=== PATIENT | male | born 1945 | race Caucasian/White ===

== ENCOUNTER 2022-10-31 18:52 | Emergency (ER) | payer BC, SELFPAY ==
[2022-10-31 18:58] VITALS: BP 155/89; PULSE 87; RESP 16; TEMP 36.7; O2SAT 95; BMI 22.2
--- NOTE | 2022-10-31 19:10 | PC.NURSE ---
Macerated laceration tip of left thumb. PMS intact. no bleeding noted
[2022-10-31] MEDS: ADACEL DIPH,PERTUSS(ACELL),TET VAC/PF 0.5 ML ADULT SYRINGE IM (19:15)
--- NOTE | 2022-10-31 19:34 | XR_ITS ---
The [address] [address] Patient Name: LEIGH ANN POLO MRN: [id number] date: 1945 Sex: M Assigned Patient Location: ER Current Patient Location: Accession/Order Number: [id number] Exam Date: 10/31/2022 19:30 Report Date: 10/31/2022 20:16 At the request of: ARTI CARUSO Procedure: XR hand LT min 3V EXAM: XR hand LT min 3V HISTORY: , Thumb with electric saw COMPARISON: None. TECHNIQUE: 3 views FINDINGS: IMPRESSION: Approximately 2.7 mm radiodensity within the volar aspect of the thenar eminence. Additional volar radiodensity overlies the first metacarpal base. No visualized fracture, dislocation, subluxation or osseous lesion. Degenerative changes of the first carpometacarpal, first IP, triscaphe, first, second and third metacarpophalangeal and distal radioulnar joints. Electronically authenticated by: COBY DYKES Date: 10/31/2022 20:16
--- NOTE | 2022-10-31 19:35 | ED.SKABFB1 ---
HPI - Skin/Abscess/Foreign Bdy General Chief complaint: Skin/Abscess/Foreign Body Stated complaint: LT THUMB CUT Time Seen by Provider: 10/31/22 19:31 Source: patient Mode of arrival: walk-in Limitations: no limitations History of Present Illness HPI narrative: using a table saw and it jumped up lacerating his left thumb. did not involve the nail. Denies thumb numbness or weakness. Denies other injury MD complaint: Reports laceration Related Data Home Medications Medication Instructions Recorded Confirmed amlodipine 5 mg tablet 5 mg PO DAILY 10/31/22 10/31/22 cyanocobalamin (vitamin B-12) 1,000 mcg PO DAILY 10/31/22 10/31/22 1,000 mcg tablet Allergies Allergy/AdvReac Type Severity Reaction Status Date / Time No Known Drug Allergies Allergy Verified 10/31/22 18:58 Review of Systems ROS Status of ROS 10 or more systems reviewed and unremarkable except as noted in history and below [facility] Medical History (Updated 10/31/22 @ 21:59 by Misha Gray MD) Exam Constitutional Vital Signs - 24 hr 10/31/22 18:58 10/31/22 21:37 Temperature 98.1 F Pulse Rate 84 Pulse Rate [Monitor] 87 Respiratory Rate 16 18 Blood Pressure 141/106 H Blood Pressure [Right Arm] 155/89 H Pulse Oximetry 95 93 L Oxygen Delivery Method Room Air Common normals: no apparent distress, average body habitus, oriented x3, no limitations, healthy appearing and alert HENMT Common normals: normocephalic and head/scalp atraumatic Eye Common normals: EOMs intact bilaterally and conjunctivae normal Respiratory Common normals: normal respiratory effort, no retractions and no use of accessory muscles Cardio Common normals: regular rate, regular rhythm, S1 normal heart sound and S2 normal heart sound Extremity Other: fat pad left thumb with complicated chewed up appearing lac into SQ space. Nail and nail bed intact. Sensation of finger intact. Pale color of tip of finger. no obvious FB seen. Neuro Common normals: oriented x3, CN's II-XII intact bilaterally, moves all extremities, no focal motor deficits and no sensory deficits noted Psych Appearance: grossly normal Course Vital Signs Vital signs: Vital Signs Temperature 98.1 F 10/31/22 18:58 Pulse Rate 87 10/31/22 18:58 Respiratory Rate 16 10/31/22 18:58 Blood Pressure 155/89 H 10/31/22 18:58 Pulse Oximetry 95 10/31/22 18:58 Oxygen Delivery Method Room Air 10/31/22 18:58 Temperature 98.1 F 10/31/22 18:58 Pulse Rate 84 10/31/22 21:37 Respiratory Rate 18 10/31/22 21:37 Blood Pressure 141/106 H 10/31/22 21:37 Pulse Oximetry 93 L 10/31/22 21:37 Oxygen Delivery Method Room Air 10/31/22 18:58 MDM - Skin/Abscess/Foreign Bdy MDM Narrative Medical decision making narrative: patient presented with complicated lac left thumb. Cut into many lacs with table saw. Nail bed not involved. Lac pieced together as best as possible. xray with FB at the thumb but not at the site of the laceration. Patient informed of the above. given dose of augmentin and discharged home to follow up with orthopedics Discharge Plan Discharge Chief Complaint: Skin/Abscess/Foreign Body Clinical Impression: Laceration of right thumb Patient Disposition: Home, Self-Care Prescriptions / Home Meds: No Action amlodipine 5 mg tablet 5 mg PO DAILY cyanocobalamin (vitamin B-12) 1,000 mcg tablet 1,000 mcg PO DAILY Instructions: Finger Laceration (ED) Additional Instructions: follow up with orthopedics Dr Owens next week Stand Alone Forms: Portal Instructions Referrals: Aroldo Ace DO [Primary Care Provider] - 1 week Procedures ED Procedure Instructions Procedures Procedures: left thumb lac repair. complicated multiple cuts fat pad of left thumb. 1% lido as local. site cleaned with betadine and rinsed with saline. No obvious FB found. lac tacked together with # 8 4.0 nylon stitches. lac size in total probably 2.5cm post repair xray obtained due to FB that was present. Patient also given first dose of Augmentin
--- NOTE | 2022-10-31 21:10 | XR_ITS ---
The [address] [address] Patient Name: LEIGH ANN POLO MRN: [id number] date: 1945 Sex: M Assigned Patient Location: ER Current Patient Location: ER Accession/Order Number: [id number] Exam Date: 10/31/2022 21:16 Report Date: 10/31/2022 21:46 At the request of: ARTI CARUSO Procedure: XR hand LT 2V EXAM: XR hand LT 2V 2 views were performed. In allowing for difference in technique there is no change with the prior study. Electronically authenticated by: COBY DYKES Date: 10/31/2022 21:46
[2022-10-31 21:37] VITALS: BP 141/106; PULSE 84; RESP 18; O2SAT 93
[2022-10-31 22:07] VITALS: BP 141/106; PULSE 84; RESP 18; O2SAT 96
== END 2022-10-31 22:09 | disposition home or self-care (01) ==
PROVIDERS: Emergency Provider Internal Medicine; PCP Internal Medicine
DX: S61.012A Laceration without foreign body of left thumb without damage to nail, initial encounter (principal); Z23 Encounter for immunization; W31.2XXA Contact with powered woodworking and forming machines, initial encounter; Z79.899 Other long term (current) drug therapy
CPT/HCPCS: 12001; 73120; 73130; 90471; 90715; 99284

== ENCOUNTER 2023-01-06 08:05 | Outpatient (OUT) | payer BC, SELFPAY ==
--- NOTE | 2023-01-06 08:36 | CT_ITS ---
[address] [address] Patient Name: LEIGH ANN POLO MRN: [id number] date: 1945 Sex: M Assigned Patient Location: CT Current Patient Location: CT Accession/Order Number: [id number] Exam Date: 01/06/2023 08:41 Report Date: 01/06/2023 10:00 At the request of: FRANKLYN BARRY Procedure: CT lung screening low-dose EXAMINATION: CT lung screening low-dose HISTORY: Nicotine Dependence F17.210 COMPARISON: 05/10/2020 TECHNIQUE: Axial, Coronal, and Sagittal images were created without the administration of IV contrast material. Dose reduction techniques were achieved by using automated exposure control and/or adjustment of mA and/or kV according to patient size and/or use of iterative reconstruction technique. FINDINGS: LUNGS: Mild basilar bronchiectasis. Moderate stable centrilobular emphysema with an upper lobe predominance. Scattered stable solid calcified and noncalcified parenchymal and subpleural nodules the largest nodule subpleural in the right lower lobe axial image 98 measuring 7.9 x 5.0 mm, grossly stable in size accounting for differences in slice selection. No new significant pulmonary nodule or mass. PLEURA: No mass, effusion, or pneumothorax. VASCULATURE: No abnormality. LUIS MIGUEL: No mass or pathologic adenopathy. MEDIASTINUM: No mass or pathologic adenopathy. CARDIAC: No enlargement or pericardial effusion. Minimal atherosclerosis AORTA: No aortic aneurysm. Mild atherosclerosis CHEST WALL: No mass or axillary adenopathy BONES: No bone lesion or fracture. LIMITED ABDOMEN: Low-density in the left hepatic lobe, possibly a cyst OTHER: Negative. CT/CT lung screening low-dose IMPRESSION: LUNG SCREENING: Lung-RADS Category 2- Benign Appearance or Behavior. Nodules with a very low likelihood of becoming a clinically active cancer due to size or lack of growth. 2. Continue annual screening with LDCT in 12 months. Electronically authenticated by: COBY LUNDBERG Date: 01/06/2023 10:00
[2023-01-06 08:44] LABS: Basophils Absolute Auto 0.1 10^3/uL (0.0-0.1); Basophils Percent Auto 1.3 % (0.2-2.0); Eosinophils Absolute Auto 0.4 10^3/uL (0.0-0.7); Eosinophils Percent Auto 5.8 % (0.9-7.0); Hematocrit 39.9 % (42.0-54.0); Hemoglobin 13.4 g/dL (14.0-18.0); Immature Granulocytes Abs Auto 0.06 10^3/uL (0.00-0.03); Immature Granulocytes Pct Auto 0.9 % (0.0-0.5); Lymphocytes Absolute Auto 1.2 10^3/uL (1.2-3.8); Mean Corpuscular HGB Conc 33.6 g/dL (29.9-35.2); Mean Corpuscular Hemoglobin 31.5 pg (25.9-34.0); Mean Corpuscular Volume 93.9 fL (80.0-94.0); Mean Platelet Volume 8.6 fL (9.5-13.5); Monocytes Absolute Auto 0.8 10^3/uL (0.3-0.8); Neutrophils Absolute Auto 3.8 10^3/uL (1.4-6.5); Platelet Count 337 10^3/uL (150-450); Red Blood Count 4.25 10^6/uL (4.70-6.10); Red Cell Distribution Width 13.9 % (11.0-15.0); White Blood Count 6.4 10^3/uL (4.0-11.0)
[2023-01-06 09:50] LABS: Alanine Aminotransferase 19 U/L (16-63); Albumin Globulin Ratio 0.8; Albumin Level 3.2 g/dL (3.4-5.0); Alkaline Phosphatase 91 U/L (46-116); Anion Gap 12.4; Aspartate Amino Transferase 16 U/L (15-37); BUN Creatinine Ratio 10.3; Bilirubin Total 0.6 mg/dL (0.2-1.0); Calcium 8.7 mg/dL (8.5-10.1); Carbon Dioxide 24.5 mmol/L (21.0-32.0); Chloride 102 mmol/L (98-107); Estimated GFR (African America 49 (>=60); Estimated GFR (Non-African Ame 41 (>=60); Glucose 91 mg/dL (74-106); Potassium 3.9 mmol/L (3.5-5.1); Sodium 135 mmol/L (136-145); Total Protein 7.2 g/dL (6.4-8.2)
[2023-01-06 10:51] LABS: Prostate Specific Antigen Scrn 1.98 ng/mL (<=4.00)
== END 2023-01-06 08:06 | disposition home or self-care (01) ==
LOC: CT 08:06
PROVIDERS: PCP Internal Medicine; Visit Provider Internal Medicine
DX: Z00.00 Encounter for general adult medical examination without abnormal findings (principal); F17.210 Nicotine dependence, cigarettes, uncomplicated; Z12.5 Encounter for screening for malignant neoplasm of prostate
CPT/HCPCS: 36415; 71271; 80053; 82607; 82728; 82746; 85025; G0103

== ENCOUNTER 2023-01-14 07:51 | Outpatient (OUT) | payer BC, SELFPAY ==
--- NOTE | 2023-01-14 07:55 | US_ITS ---
The [address] [address] Patient Name: LEIGH ANN POLO MRN: [id number] date: 1945 Sex: M Assigned Patient Location: US Current Patient Location: US Accession/Order Number: [id number] Exam Date: 01/14/2023 08:00 Report Date: 01/14/2023 08:58 At the request of: FRANKLYN BARRY Procedure: US renal bladder EXAMINATION: US renal bladder HISTORY: Stage 3b Chronic Kidney Disease N18.32 COMPARISON: No relevant comparison available. TECHNIQUE: Ultrasound examination was performed of the kidneys and urinary bladder. FINDINGS: RIGHT KIDNEY: No evidence of pelvocaliectasis, mass, or calculi. Normal renal cortical parenchymal echogenicity. Incidental small benign-appearing cyst. Color Doppler demonstrates blood flow within the kidney. Kidney: 9.5 x 5.6 x 5.3 cm LEFT KIDNEY: Slightly limited evaluation of left kidney due to bowel gas and body habitus. Mild cortical thinning. No evidence of pelvocaliectasis, mass, or calculi. Normal renal cortical parenchymal echogenicity. Color Doppler demonstrates blood flow within the kidney. Kidney: 8.5 x 4.4 x 5.6 cm BLADDER: No visible wall thickening, mass, or calculi. Post void residual: 83 mL URETERAL JETS: Visualized bilaterally. OTHER: Marked dilation of the distal abdominal aorta 5.3 x 4.9 cm in diameter by 7.87 m in length. Turbulent blood flow through this region. US/US renal bladder IMPRESSION: 1. 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 2. No acute or suspicious findings kidneys. Minimal cortical atrophy, likely age related. 3. Moderate amount of fluid remains within urinary bladder following voiding, [address] Barry is being notified of the findings at this time. Electronically authenticated by: HEDY POLO Date: 01/14/2023 08:58
== END 2023-01-14 07:52 | disposition home or self-care (01) ==
LOC: US 07:51
PROVIDERS: PCP Internal Medicine; Visit Provider Internal Medicine
DX: N18.32 Chronic kidney disease, stage 3b (principal)
CPT/HCPCS: 76770

== ENCOUNTER 2024-02-07 10:01 | Outpatient (OUT) | payer BC, SELFPAY ==
[2024-02-07 10:16] LABS: Basophils Absolute Auto 0.1 10^3/uL (0.0-0.1); Basophils Percent Auto 1.3 % (0.2-2.0); Eosinophils Absolute Auto 0.4 10^3/uL (0.0-0.7); Eosinophils Percent Auto 4.7 % (0.9-7.0); Hematocrit 41.4 % (42.0-54.0); Immature Granulocytes Abs Auto 0.07 10^3/uL (0.00-0.03); Immature Granulocytes Pct Auto 0.9 % (0.0-0.5); Lymphocytes Absolute Auto 1.4 10^3/uL (1.2-3.8); Lymphocytes Percent Auto 18.8 % (20.5-60.0); Mean Corpuscular HGB Conc 33.8 g/dL (29.9-35.2); Mean Corpuscular Hemoglobin 32.3 pg (25.9-34.0); Mean Corpuscular Volume 95.4 fL (80.0-94.0); Mean Platelet Volume 8.8 fL (9.5-13.5); Monocytes Absolute Auto 0.9 10^3/uL (0.3-0.8); Monocytes Percent Auto 11.3 % (1.7-12.0); Neutrophils Absolute Auto 4.7 10^3/uL (1.4-6.5); Platelet Count 382 10^3/uL (150-450); Red Blood Count 4.34 10^6/uL (4.70-6.10); Red Cell Distribution Width 12.7 % (11.0-15.0); White Blood Count 7.5 10^3/uL (4.0-11.0)
--- NOTE | 2024-02-07 10:30 | CT_ITS ---
[address] [address] Patient Name: LEIGH ANN POLO MRN: [id number] date: 1945 Sex: M Assigned Patient Location: LAB Current Patient Location: LAB Accession/Order Number: [id number] Exam Date: 02/07/2024 10:20 Report Date: 02/07/2024 13:09 At the request of: FRANKLYN BARRY Procedure: CT lung screening low-dose EXAMINATION: CT lung screening low-dose HISTORY: Nicotine Dependence COMPARISON: 01/06/2023 TECHNIQUE: Axial, Coronal, and Sagittal images were created without the administration of IV contrast material. Dose reduction techniques were achieved by using automated exposure control and/or adjustment of mA and/or kV according to patient size and/or use of iterative reconstruction technique. FINDINGS: LUNGS: Moderate centrilobular emphysema with an upper lobe predominance. Stable scattered pulmonary nodules the most suspicious nodule is identified in the left upper lobe along the major fissure measuring 9.7 x 9.1 mm, axial image 62 PLEURA: No mass, effusion, or pneumothorax. VASCULATURE: No abnormality. LUIS MIGUEL: No mass or pathologic adenopathy. MEDIASTINUM: No mass or pathologic adenopathy. CARDIAC: No enlargement or pericardial effusion CORONARY ARTERIES: Coronary calcifications are mild. AORTA: No aortic aneurysm. Moderate calcific atherosclerosis. Aortic endograft minimally visualized CHEST WALL: No mass or axillary adenopathy BONES: No bone lesion or fracture. LIMITED ABDOMEN: No suspicious findings. Limited images of the upper abdomen. OTHER: Negative. CT/CT lung screening low-dose IMPRESSION: LUNG SCREENING: Lung-RADS Category 2- Benign Appearance or Behavior. Nodules with a very low likelihood of becoming a clinically active cancer due to size or lack of growth. 2. Continue annual screening with LDCT in 12 months. Electronically authenticated by: COBY LUNDBERG Date: 02/07/2024 13:09
[2024-02-07 11:32] LABS: Alanine Aminotransferase 20 U/L (16-63); Albumin Globulin Ratio 0.9; Albumin Level 3.4 g/dL (3.4-5.0); Alkaline Phosphatase 134 U/L (46-116); Anion Gap 16.4; Aspartate Amino Transferase 20 U/L (15-37); BUN Creatinine Ratio 12.4; Calcium 8.8 mg/dL (8.5-10.1); Carbon Dioxide 22.7 mmol/L (21.0-32.0); Chloride 97 mmol/L (98-107); Chol HDL Ratio 2.6; Cholesterol 151 mg/dL (<=200); Estimated GFR (African America 41 (>=60 mL/min/1.73m^2); Estimated GFR (Non-African Ame 34 (>=60 mL/min/1.73m^2); Glucose 95 mg/dL (74-106); HDL Cholesterol 59 mg/dL (40-60); LDL Cholesterol Calculated 72.6 mg/dL; Potassium 4.1 mmol/L (3.5-5.1); Sodium 132 mmol/L (136-145); Total Protein 7.4 g/dL (6.4-8.2); Triglycerides 97 mg/dL (<=150); VLDL CHOLESTEROL 19.4 mg/dL
[2024-02-07 12:03] LABS: Percent Iron Saturation 54.3 %
[2024-02-07 12:09] LABS: Estimated Average Glucose 111 mg/dL; Glycohemoglobin A1C 5.5 % (4.5-6.2)
[2024-02-07 12:30] LABS: Prostate Specific Antigen Scrn 2.41 ng/mL (<=4.00)
[2024-02-08 09:13] LABS: Vitamin B12 463 pg/mL (232-1245)
== END 2024-02-07 10:02 | disposition home or self-care (01) ==
LOC: LAB 10:01
PROVIDERS: PCP Internal Medicine; Visit Provider Internal Medicine
DX: R73.9 Hyperglycemia, unspecified (principal); D64.9 Anemia, unspecified; R53.83 Other fatigue; I10 Essential (primary) hypertension; E78.00 Pure hypercholesterolemia, unspecified; Z12.5 Encounter for screening for malignant neoplasm of prostate; F17.210 Nicotine dependence, cigarettes, uncomplicated
CPT/HCPCS: 36415; 71271; 80053; 80061; 82607; 82728; 82746; 83036; 83540; 83550; 85025; G0103

== ENCOUNTER 2024-03-16 14:44 | Outpatient (OUT) | payer MEDICARE, SELFPAY ==
[2024-03-16 15:20] LABS: Anion Gap 12.8; BUN Creatinine Ratio 10.8; Calcium 8.9 mg/dL (8.5-10.1); Carbon Dioxide 28.3 mmol/L (21.0-32.0); Chloride 103 mmol/L (98-107); Estimated GFR (African America 39 (>=60 mL/min/1.73m^2); Estimated GFR (Non-African Ame 32 (>=60 mL/min/1.73m^2); Glucose 101 mg/dL (74-106); Potassium 4.1 mmol/L (3.5-5.1); Sodium 140 mmol/L (136-145)
[2024-03-16 15:40] LABS: Bilirubin Urine NEGATIVE (NEGATIVE); Blood Urine SMALL (NEGATIVE); Clarity Urine CLEAR (CLEAR); Color Urine LT. YELLOW (YELLOW); Glucose Urine UA NEGATIVE (NEGATIVE); Ketones Urine NEGATIVE (NEGATIVE); Leukocyte Esterase Urine NEGATIVE (NEGATIVE); Nitrite Urine NEGATIVE (NEGATIVE); Protein Urine NEGATIVE (NEG/TRACE); Urobilinogen Urine 0.2 EU/dL (0.2-1.0); pH Urine 6.5 (5.0-9.0)
[2024-03-16 15:43] LABS: Creatinine Urine Random 37.11 mg/dL (20.00-300.00); Protein Creatinine Ratio Urine 0.27; Total Protein Urine Random 10.1 mg/dL (<=11.9)
[2024-03-16 15:49] LABS: Bacteria Urine NONE SEEN #/HPF (NONE SEEN); Cast Seen? NONE SEEN #/LPF (NONE SEEN); Crystals Seen? None Seen #/HPF (None Seen); Mucus Urine NONE SEEN (NONE SEEN); RBC Urine 0-2 #/HPF (0-2); Squamous Epithelial Cell Urine RARE #/LPF (NONE/RARE); WBC Urine NONE SEEN #/HPF (NONE SEEN)
== END 2024-03-16 14:45 | disposition home or self-care (01) ==
PROVIDERS: PCP Internal Medicine; Visit Provider Internal Medicine
DX: N18.9 Chronic kidney disease, unspecified (principal)
CPT/HCPCS: 36415; 80048; 81001; 82570; 84156

== ENCOUNTER 2025-02-15 09:39 | Outpatient (OUT) | payer MEDICARE, SELFPAY ==
--- OUTSIDE RECORDS SUMMARY | 2025-02-15 09:45 | XMS_ITS | CCD ---
Author Organization [facility] CliniSysd Care Team Providers Care Billet Assembler Name Role Phone AROLDO ACE Primary Care Unavailable BALL, AROLDO Admitting Unavailable JHONNY, AROLDO Attending Unavailable JHONNY, AROLDO Consulting Unavailable COBY LUNDBERG V Consulting Unavailable BALL, AROLDO Consulting Unavailable BALL, AROLDO Primary Care Unavailable BALL, AROLDO Admitting Unavailable JHONNY, AROLDO Attending Unavailable DO Rakesh Newby Emergency Provider DO Aroldo Ace Primary Care Provider MD Justin Garcia Admit Provider MD Justin Garcia Attending Provider DO Janeth Reyes Other Provider MD Linh Hoyt Attending Provider Aroldo Ace Unavailable Coby Cordon Unavailable MD Coby Cordon Attending Provider GHADA Ponce Attending Provider Johan Dawn Unavailable DO Aroldo Ace Primary Care Provider [phone] MD Coby Cordon Attending Provider MD Johan Dawn Attending Provider Kimmy Hines Unavailable DO Aroldo Ace Primary Care Provider Johan RAMACHANDRAN Attending Unavailable Samanta Matute Attending Unavailable DO Aroldo Ace Primary Care Provider MD Johan Dawn Attending Provider MD Johan Dawn Admit Provider CLAUDETTE Hines Attending Provider DO Aroldo Ace Primary Care Provider MurDO Aroldo tony Attending Provider Aroldo Ace MD Primary Care Provider Aroldo Ace DO Primary Care Provider William URRUTIA, Radha Christian Attending Provider Johan Dawn MD Attending Provider Johan Dawn MD Referring Provider Modek, Aroldo Admitting Unavailable Murcek, Aroldo Attending Unavailable Ball, Aroldo Primary Care Unavailable Murcek, Aroldo Admitting Unavailable Murcek, Aroldo Attending Unavailable Ball, Aroldo Primary Care Unavailable Hill, Radha Christian Attending Unavailable Ball, Aroldo Primary Care Unavailable William, Radha Christian Admitting Unavailable Buehrer, Johan Admitting Unavailable Buehrer, Johan Attending Unavailable Buehrer, Johan Referring Unavailable Ball, Aroldo Primary Care Unavailable Hill, Radha Christian Attending Unavailable Ball, Aroldo Primary Care Unavailable William, Radha Christian Admitting Unavailable Murcek, Aroldo Admitting Unavailable Murcek, Aroldo Attending Unavailable Jhonny, Aroldo Primary Care Unavailable Jhonny GONZALEZ, Aroldo Oconnell Primary Care Provider PETVERO, USHA Gooden Attending Unavailable LOWE, SIMRAN Attending Unavailable PETITTI, USHA Gooden Attending Unavailable PETITTI, USHA Gooden Attending Unavailable MURCEK, AROLDO Morelos Attending Unavailable MURCEK, AROLDO W Attending Unavailable PETITTI, USHA Gooden Attending Unavailable WILLIAM, RADHA Attending Unavailable MURCEK, AROLDO W Attending Unavailable Aroldo Ace DO Primary Care Provider [phone] Aroldo Ace DO Attending Provider [phone] Allergies Allergy Classification Reported Allergen(s) Allergy Type Date of Onset Reaction(s) Facility (1 source) No Known Medication Allergies; Translations: [No Known Medication Allergies] Propensity to adverse reactions (disorder) [facility] Repository Medications Current Medications Medication Drug Class(es) Dates Sig (Normalized) Sig (Original) amLODIPine 5 mg oral tablet (20 sources) Dihydropyridine Calcium Channel Allyn Start: 05-09-2024 take 1 tablet by mouth once daily Amlodipine 5 mg tablet Active 0 .ROUTE .COMPLEX May 09, 2024 2:00pm TAKE 1 TABLET BY MOUTH EVERY DAY FOR 30 DAYS Complies with drug therapy Start: 09-14-2022 End: 05-09-2024 take 1 tablet by mouth once daily in the morning Amlodipine 5 mg tablet Discontinued 5 MG PO Every morning March 04, 2023 11:48am May 09, 2024 2:00pm aspirin 81 mg oral tablet (20 sources) Platelet Aggregation Inhibitor, Nonsteroidal Anti-inflammatory Drug Start: 03-04-2023 take 1 capsule by mouth once daily Aspirin 81 mg Capsule Active 81 MG PO Daily March 04, 2023 12:00am Complies with drug therapy take 1 tablet by mouth once zhao y aspirin (ASPIR) 81 MG EC tablet Take 81 mg by mouth Daily Active atorvastatin 40 mg oral tablet (20 sources) HMG-CoA Reductase Inhibitor Start: 03-15-2024 take 1 tablet by mouth once daily Atorvastatin 40 mg tablet Active 0 .ROUTE .COMPLEX March 15, 2024 9:37am TAKE 1 TABLET BY MOUTH EVERY DAY FOR 30 DAYS Complies with drug therapy Start: 01-14-2023 End: 03-15-2024 take 1 tablet by mouth once daily in the morning Atorvastatin 40 mg Tablet Discontinued 40 MG PO Every morning March 04, 2023 12:00am March 15, 2024 9:37am take 1 tablet by rodo th once daily atorvastatin (Lipitor) 10 MG tablet Take 10 mg by mouth Daily Active ciclopirox 7.7 mg/ml topical cream (8 sources) Start: 06-19-2024 ciclopirox (Lo prox) 0.77 % cream Indications: Other seborrheic dermatitis Apply thin layer to face once a day, 30 day supply 30 g 06/19/2024 Active fluorouracil 50 mg/ml topical cream (2 sources) Nucleoside Metabolic Inhibitor Start: 12-20-2024 fluorouracil (Efudex ) 5 % cream Indications: Actinic keratosis Apply to directed areas on the neck, upper lip, behind ears, cheeks and forearms twice a day x 14 days. Dispense 30 day supply but only use for 14 days. 40 g 12/20/2024 Active Start: 12-20-2024 fluorouracil ( Efudex) 5 % cream Indications: Actinic keratosis Apply to directed areas on the neck, upper lip, behind ears, cheeks and forearms twice a day x 14 days. Dispense 30 day supply but only use for 14 days. 40 g 12/20/2024 Active mupirocin 0.02 mg/mg topical ointment (9 sources) RNA Synthetase Inhibitor Antibacterial Start: 11-11-2022 Mupirocin 2 % 1 application Externally Twice a day for 5 days Oct, Active nystatin 100 unt/mg topical ointment (20 sources) Polyene Antifungal Start: 06-28-2023 nystatin (Mycostatin) ointment Indications: Rash and other nonspecific skin eruption Apply to affected areas, once daily when flared, 30 day supply 15 g 11 06/28/2023 Active prevergen (7 sources) Start: 12-06-2023 take 1 tablet by mouth once daily prevergen Active 1 TAB PO Daily December 06, 2023 12:00am Complies with drug therapy Start: 12-06-2023 take 1 tablet by rodo th once daily prevergen Active 1 TAB PO Daily December 05, 2023 11:00pm Start: 12-06-2023 take 1 tablet by rodo th once daily prevergen Active 1 TAB PO Daily December 06, 2023 12:00am vitamin b12 1 mg extended release oral tablet (18 sources) Vitamin B12 Start: 10-12-2022 take 1 tablet by mouth every twenty-four hours Vitamin B12 1000 MCG 1 tablet Orally Once a day Oct, Active Start: 09-14-2022 End: 12-27-2023 take 1 tablet by mouth once daily in the morning Cyanocobalamin (Vitamin B-12) 1,000 mcg Tablet Discontinued 1000 MCG PO Every morning September 14, 2022 12:00am December 27, 2023 10:31am Vitamin B12 1000 MCG (13 sources) Start: 10-12-2022 take 1 tablet by rodo th once daily Vitamin B12 1000 MCG 1 tablet Orally Once a day Oct, Active Start: 10-12-2022 take 1 tablet by mouth once da sha Vitamin B12 1000 MCG 1 tablet Orally Once a day for 30 days Oct, Active Completed/Discontinued Medications Medication Drug Class(es) Dates Sig (Normalized) Sig (Original) amoxicillin 875 mg / clavulanate 125 mg oral tablet (10 sources) Penicillin-class Antibacterial Start: 11-11-2022 take 1 tablet by mouth every twelve hours Amoxicillin-Pot Clavulanate 875-125 MG 1 tablet Orally every 12 hrs for 7 days Oct, Not-Taking folic acid 1 mg oral tablet (20 sources) Start: 01-09-2023 End: 09-18-2024 take 1 tablet by mouth once daily Folic Acid 1 mg Tablet Discontinued 1 MG PO Daily March 04, 2023 12:00am September 07, 2023 6:15pm Folic Acid 5 MG capsule Take by mouth Active hydroCHLOROthiazide 12.5 mg oral capsule (16 sources) Thiazide Diuretic Start: 09-14-2022 End: 03-04-2023 take 1 capsule by mouth once daily Hydrochlorothiazide 12.5 mg capsule Discontinued 12.5 MG PO Daily September 14, 2022 12:00am March 04, 2023 11:48am Suprep Bowel Prep Kit 17.5-3.13-1.6 GM/180ML (10 sources) Start: 12-29-2018 Suprep Bowel Prep Kit 17.5-3.13-1.6 GM/180ML 177 ML DIRECTED AT 4 PM AND ONE AT 11 PM DAY PRIOR Orally Twice a day for 1 day(s) Dec, Not-Taking Problems Active Problems Problem Classification Problem Date Documented Date Episodic/Chronic Alcohol-related disorders (20 sources) Alcohol dependence; Translations: [Alcohol dependence, uncomplicated] 05-23-2024 Chronic Aortic; peripheral; and visceral artery aneurysms (20 sources) Aneurysm of infrarenal abdominal aorta ; Translations: [Infrarenal abdominal aortic aneurysm (AAA) without rupture] Onset: 01-05-2024 12-25-2023 Chronic Comment on above: s/p EVAR 03/2023 Cancer of head and neck (4 sources) Malignant tumor of lip; 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, unspecified] 02-16-2024 Chronic Chronic kidney disease (20 sources) Chronic kidney disease stage 3A ; Translations: [Chronic kidney disease, stage 3a] 02-07-2024 Chronic Deficiency and other anemia (18 sources) Pernicious anemia; Translations: [Vitamin B12 deficiency anemia due to intrinsic factor deficiency] 05-23-2024 Episodic Deficiency and other anemia (2 sources) Vitamin B12 deficiency anemia due to intrinsic factor deficiency Episodic Deficiency and other anemia (4 sources) Anemia; Translations: [Anemia, unspecified] 12-27-2023 Episodic Delirium, dementia, and amnestic and other cognitive disorders (20 sources) Delirium; Translations: [Delirium due to known physiological condition] Chronic Diabetes mellitus without complication (6 sources) Hyperglycemia; Translations: [Hyperglycemia, unspecified] 12-27-2023 Episodic Disorders of lipid metabolism (20 sources) Hypercholesterolemia; Translations: [Pure hypercholesterolemia, unspecified] Onset: 01-05-2024 Resolved: 01-05-2024 Chronic Essential hypertension (20 sources) Hypertensive disorder; Translations: [Essential (primary) hypertension] Onset: 12-02-2023 Resolved: 12-02-2023 09-12-2022 Chronic Hyperplasia of prostate (19 sources) Lower urinary tract symptoms due to benign prostatic hypertrophy; Translations: [Benign prostatic hyperplasia with lower urinary tract symptoms] Chronic Hypertension with complications and secondary hypertension (20 sources) Hypertensive encephalopathy; Translations: [Hypertensive encephalopathy] Onset: 09-12-2023 09-12-2023 Chronic Nervous system congenital anomalies (20 sources) Congenital cerebral ventriculomegaly; Translations: [Other specified congenital malformations of brain] Onset: 09-12-2023 09-12-2023 Chronic Nutritional deficiencies (1 source) Deficiency of other specified B group vitamins Episodic Open wounds of extremities (2 sources) Laceration without foreign body of left thumb without damage to nail, subsequent encounter Episodic Other inflammatory condition of skin (4 sources) Seborrheic dermatitis; Translations: [Other seborrheic dermatitis] 06-19-2024 Episodic Other lower respiratory disease (18 sources) Solitary nodule of lung; Translations: [Solitary pulmonary nodule] Episodic Other lower respiratory disease (2 sources) Solitary pulmonary nodule; Translations: [Solitary pulmonary nodule] Episodic Other lower respiratory disease (5 sources) Nodule of lung; Translations: [Solitary pulmonary nodule] 02-07-2024 Episodic Comment on above: CT: 9.7mm JAGRUTI nodule - 02/2024 Other nervous system disorders (2 sources) Hyperreflexia; Translations: [Abnormal reflex] 03-27-2024 Episodic Other screening for suspected conditions (not mental disorders or infectious disease) (20 sources) Encounter for screening for malignant neoplasm of prostate; Translations: [CT of head abnormal] Onset: 06-12-2020 Resolved: 01-05-2024 09-12-2022 Episodic Comment on above: PSA: 1.98 - 01/2023, 2.41 - 02/2024, Other skin disorders (8 sources) Actinic keratosis; Translations: [Actinic keratosis] 03-01-2024 Episodic Other skin disorders (6 sources) Seborrheic keratosis; Translations: [Other seborrheic keratosis] 12-28-2023 Episodic Other skin disorders (6 sources) Lentiginosis; Translations: [Other melanin hyperpigmentation] 12-28-2023 Episodic Residual codes; unclassified (20 sources) Hypersomnia; Translations: [Hypersomnia, unspecified] Onset: 12-02-2023 Resolved: 12-02-2023 09-13-2022 Chronic Residual codes; unclassified (4 sources) Hypersomnia, unspecified; Translations: [Hypersomnia, unspecified] 09-14-2022 Chronic Residual codes; unclassified (19 sources) Sleep apnea; Translations: [Sleep apnea, unspecified] 05-23-2024 Chronic Residual codes; unclassified (19 sources) Hypoxia; Translations: [Idiopathic sleep related nonobstructive alveolar hypoventilation] 05-23-2024 Chronic Residual codes; unclassified (1 source) Sleep apnea, unspecified Chronic Residual codes; unclassified (1 source) Idiopathic sleep related nonobstructive alveolar hypoventilation Chronic Residual codes; unclassified (19 sources) Obstructive sleep apnea syndrome; Translations: [Obstructive sleep apnea (adult) (pediatric)] 05-23-2024 Chronic Residual codes; unclassified (3 sources) Obstructive sleep apnea (adult) (pediatric); Translations: [Obstructive sleep apnea (adult)(pediatric)] Chronic Residual codes; unclassified (17 sources) Transient altered mental status; Translations: [Disorientation, unspecified] 09-12-2022 Episodic Residual codes; unclassified (5 sources) Disorientation, unspecified; Translations: [Unspecified psychosis] 09-12-2022 Episodic Residual codes; unclassified (20 sources) Disturbance in sleep behavior; Translations: [Sleep disorder, unspecified] Onset: 12-02-2023 Resolved: 12-02-2023 09-13-2022 Episodic Residual codes; unclassified (4 sources) Sleep disorder, unspecified; Translations: [Sleep disturbance, unspecified] 09-14-2022 Episodic Residual codes; unclassified (18 sources) Tobacco use; Translations: [Tobacco use and exposure] Episodic Residual codes; unclassified (4 sources) Transient alteration of awareness; Translations: [Transient alteration of awareness] 03-27-2024 Episodic Residual codes; unclassified (3 sources) Tobacco user; Translations: [Tobacco use] 05-23-2024 Episodic Skin and subcutaneous tissue infections (2 sources) Cellulitis of left finger Episodic Substance-related disorders (20 sources) Nicotine dependence, cigarettes, uncomplicated; Translations: [Tobacco user] Onset: 05-10-2020 Resolved: 12-02-2023 Chronic Comment on above: LDCT: no suspicious nodules - 02/2024 LDCT: no suspicious nodules - 01/2023, 02/2024 Unclassified (1 source) Abdominal aortic aneurysm, without rupture, unspecified; Translations: [Abdominal aortic aneurysm, without rupture, unspecified] Onset: 05-11-2024 Past or Other Problems Problem Classification Problem Date Documented Da te Episodic/Chronic Acute and unspecified renal failure (20 sources) Injury of kidney; Translations: [Acute kidney failure, unspecified] Onset: 12-02-2023 Resolved: 12-02-2023 09-12-2022 Episodic Chronic kidney disease (8 sources) Chronic kidney disease; Translations: [CHRONIC KIDNEY DISEASE STAGE 3A] Onset: 06-05-2020 Neoplasms of unspecified nature or uncertain behavior (2 sources) Neoplastic disease; Translations: [Neoplasm of unspecified behavior of bone, soft tissue, and skin] 12-28-2023 Episodic Other and unspecified benign neoplasm (20 sources) Skin lesion; Translations: [Hemangioma of skin and subcutaneous tissue] Onset: 12-02-2023 Resolved: 12-02-2023 12-02-2023 Episodic Other nervous system disorders (1 source) Abnormal reflex; Translations: [Abnormal reflex] Onset: 07-13-2023 Episodic Other non-epithelial cancer of skin (20 sources) 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; Translations: [Squamous cell carcinoma of skin of lip] Onset: 05-03-2023 Resolved: 12-02-2023 12-06-2023 Episodic Residual codes; unclassified (20 sources) Altered mental status; Translations: [Altered mental status, unspecified] Onset: 09-12-2023 09-12-2023 Episodic Unclassified (4 sources) Infrarenal abdominal aortic aneurysm (AAA) without rupture; Translations: [Infrarenal abdominal aortic aneurysm (AAA) without rupture] Unclassified (4 sources) Infrarenal abdominal aortic aneurysm (AAA) without rupture I71.43 Unclassified (1 source) Abdominal aortic aneurysm (AAA) without rupture, unspecified part I71.40 Results Test Name Value Interpretation Reference Range Facility No Panel Informationon 06-19 [facility] [address] angio abdomen pelvison CT angio abdomen pelvis [facility] [address] [place] [place] [address] CT Scan Report Signed Patient: Leigh Ann Kim MR#: [id number] : 1945 Acct:[id number] Age/Sex: 79 / M ADM Date: 05/11/24 Loc: CT Room: Type: [facility] Attending Dr: Johan Dawn MD Copies to: Johan Dawn MD Ordering Provider: Johan Dawn MD Date of Service: 05/11/24 CT/CT angio abdomen pelvis: I71.40 - Abdominal aortic aneurysm, without rupture, unsp... CTA abdomen and pelvis . CLINICAL DATA: Aneurysm follow-up. TECHNIQUE: Intravenous contrast-enhanced CT angiography of the abdomen and pelvis was then performed. Axial, sagittal, coronal and volume-rendered three-dimensional reconstructions were created and reviewed. This CT exam was performed using one or more of the following dose reduction techniques: Automated exposure control, adjustment of the mA and/or kV according to patient size, or use of iterative reconstruction technique. COMPARISON: CTA abdomen and pelvis 05/10/2023. FINDINGS: Lung Bases: Emphysematous changes with bibasilar scarring. Organs:Interval endovascular repair of a fusiform type infrarenal abdominal aortic aneurysm. The graft appears patent. The [place] aneurysmal sac to have decreased in size without CTA evidence of endoleak measuring 4.2 cm. No critical stenosis or occlusion is seen involving the major branch vessels of the abdominal aorta. Liver cysts. Gallbladder spleen pancreas and adrenal glands all appear unremarkable. No enhancing renal mass or hydronephrosis. GI: Stomach is grossly unremarkable. Small bowel appears nondilated. Appendix is normal. Left colon diverticulosis.[ Pelvis:[Urinary bladder is grossly unremarkable. Prostate gland is normal in size.] Peritoneum/Retroperit oneum:No free air, free fluid or lymphadenopathy.[ Abd wall/Bones:Abdominal wall demonstrates no acute findings. Osseous structures demonstrate degenerative change.[ CT/CT angio abdomen pelvis IMPRESSION: Endovascular repair of a fusiform type infrarenal abdominal aneurysm without evidence of complication such as endoleak. Impression dictated by: Dre Vázquez Jr., D.OMary05/11/2024 2:48 PM Dictation Location: [place] [address] Transcribed By: [facility] 05/11/24 1448 Dictated By: Dre Vázquez Jr DO 05/11/24 1443 Signed By: 05/11/24 1448 Normal [facility] Creatinine (Bld) [Mass/Vol]O rdered By: Johan Dawn on 05-11-2024 Creatinine [Mass/Vol] Whole blood creatinine measurement High 0.6-1.3 [facility] Comment on above: ER/ESD physician is notified/shown all ISTAT results.Critical values may be confirmed by laboratory testing ifdeemed necessary by ER attending doctor. ISTAT XRay CREon 05-11-2024 Creatinine [Mass/Vol] 2.1 mg/dL High 0.6-1.3 [facility] Comment on above: Result Comment: ER/E SD physician is notified/shown all ISTAT results. Critical values may be confirmed by laboratory testing if deemed necessary by ER attending doctor. Performed By: #### I SCRE #### [facility] [address] [place] [address] ISTAT GFR 31.430 Normal [facility] Comment on above: Result Comment: PERF ORMED BY: [place] [address] PATHOLOGIST ANIMAL CRUELTY INVESTIGATOR RYAN CRUMP M.D. Performed By: #### I SCRE #### [facility] [address] [place] [address] No Panel InformationOrdered By: Johan Dawn on 05-11-2024 Bedside Estimated GFR (eGFR) 31.[address] [facility] [address] head/brain wo conon 04-06 CT head/brain wo con [facility] [address] [place] [place] [address] CT Scan Report Signed Patient: Leigh Ann Kim MR#: [id number] : 1945 Acct:[id number] Age/Sex: 79 / M ADM Date: 04/06/24 Loc: CT Room: Type: [facility] Attending Dr: Radha oPnce PA-C Copies to: Radha Ponce PA-C Ordering Provider: Radha Ponce PA-C Date of Service: 04/06/24 CT/CT head/brain wo con: Q04.8 CT BRAIN WITHOUT CONTRAST: CLINICAL HISTORY: Follow-up ventriculomegaly COMPARISON: CT 09/12/2022 and MRI 12/03/2022 TECHNIQUE: Contiguous axial unenhanced images were obtained through the brain. This CT exam was performed using one or more following dose reduction techniques: Automated exposure control, adjustment of the mA and/or kV according to patient size, or use of iterative reconstruction technique. FINDINGS: There is minor age-related atrophy. There is stable mild ventriculomegaly. Mild microvascular changes are again seen. There are no additional areas of abnormal attenuation. There is no hemorrhage, mass effect or extra-axial collections. The imaged paranasal sinuses and mastoid air cells are clear. There is minor carotid siphon and vertebral artery plaque CT/CT head/brain wo con IMPRESSION: STABLE MILD VENTRICULOMEGALY. CHRONIC MICROVASCULAR DISEASE. NO ACUTE INTRACRANIAL FINDINGS. Impression dictated by: Guerita Cleveland M.D.04/06/2024 4:21 PM Dictation Location: [place] [address] Transcribed By: [facility] 04/06/24 1621 Dictated By: Guerita Cleveland MD 04/06/24 1616 Signed By: 04/06/24 1621 Normal [facility] Estimated glomerular filtrat ion rate (GFR) non- Americanon 03-16-2024 GFR/1.73 sq M.predicted among non-blacks MDRD (S/P/Bld) [Vol rate/Area] Estimated glomerular filtration rate (GFR) non- Low >=60 mL/min/1.73m 2 [facility] - Chemistry and C hemistry - challengeon 03-16-2024 Calcium [Mass/Vol] 8.9 mg/dL 8.5-10.1 [facility] Chloride [Moles/Vol] 103 mmol/L 98-107 [facility] CO2 [Moles/Vol] 28.3 mmol/L 21.0-32.0 [facility] Creatinine [Mass/Vol] 2.03 mg/dL High 0.70-1.30 [facility] GFR/1.73 sq M.predicted MDRD (S/P/Bld) [Vol rate/Area] 39 mL/min/{1.73_m2} Low >=60 mL/min/1.73m 2 [facility] Glucose [Mass/Vol] 101 mg/dL 74-106 [facility] Potassium [Moles/Vol] 4.1 mmol/L 3.5-5.1 [facility] Sodium [Moles/Vol] 140 mmol/L 136-145 [facility] Urea nitrogen [Mass/Vol] 22.0 mg/dL High 7.0-18.0 [facility] Urea nitrogen/Creatinine [Mass ratio] 10.8 mg/mg [facility] Bilirubin Ql (U) Negative NEGATIVE [facility] Glucose (U) [Mass/Vol] Negative NEGATIVE [facility] Ketones Ql (U) Negative NEGATIVE [facility] pH (U) 6.5 [pH] 5.0-9.0 [facility] Specific gravity (U) [Rel density] 1.010 1.005-1.025 [facility] Urobilinogen Qn (U) 0.2 {Yasmin'U}/dL 0.2-1.0 [facility] - Specimen inform ationon 03-16-2024 Appearance (U) CLEAR CLEAR [facility] Color (U) LT. YELLOW YELLOW [facility] - Urinalysison Leukocyte esterase Test strip Ql (U) Negative NEGATIVE [facility] Mucus Ql (Urine sed) NONE SEEN NONE SEEN [facility] Nitrite Ql (U) Negative NEGATIVE [facility] Protein (U) [Mass/Vol] 10.1 mg/dL <=11.9 [facility] Protein Ql (U) Negative NEG/TRACE [facility] No Panel Informationon 03-16 Urine Bacteria NONE SEEN #/HPF NONE SEEN [facility] Urine Occult Blood SMALL Abnormal NEGATIVE [facility] Urine Other Casts NONE SEEN #/LPF NONE SEEN [facility] Urine Other Crystals None Seen #/HPF None Seen [facility] Urine Random Creatinine 37.11 mg/dL 20.00-300.0 0 [facility] Urine RBC 0-2 #/HPF 0-2 [facility] Urine Squamous Epithelial Cells RARE #/LPF NONE/RARE [facility] Urine WBC NONE SEEN #/HPF NONE SEEN [facility] Serum or plasma anion gap de terminationon 03-16-2024 Anion gap [Moles/Vol] Serum or plasma an ion gap determination [facility] Urine protein/creatinine rat ioon 03-16-2024 Protein/Creatinine (U) [Ratio] Urine protein/creatinine ratio [facility] No Panel Informationon 03-01 [facility] Complexity: simple Destruction method: cryotherapy Informed consent: discussed and consent obtained Informed consent comment: The risks of the procedure were discussed, including, but not limited to risks of scarring, darker or book publisher pigmentary changes, recurrence, infection, and incomplete removal Timeout: patient name, date of , surgical site, and procedure verified Timeout comment: Patient and provider identified site. Site was marked. Photo was taken and shown to patient, patient verified this is the correct site. Lesion destroyed using liquid nitrogen: Yes Region frozen until ice ball extended beyond lesion: Yes Cryotherapy cycles: 2 Lesion length (cm): 0.7 Lesion width (cm): 0.6 Margin per side (cm): 0 Final wound size (cm): 0.7 Outcome: patient tolerated procedure well with no complications Post-procedure details: wound care instructions given Post-procedure details comment: Post-cryotherapy instructions were given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 09-12-2022 ALT [Catalytic activity/Vol] 12 U/L 7 [facility] Albumin [Mass/volume] in Ser um or Plasma by Bromocresol green (BCG) dye binding methoOrdered By: Hakan Emerson on 09-12-2022 Albumin BCG dye [Mass/Vol] 3.6 g/dL 3.5-5.7 [facility] Alkaline phosphatase [Enzyma tic activity/volume] in Serum or PlasmaOrdered By: Hakan Emerson on 09-12-2022 ALP [Catalytic activity/Vol] 93 U/L 34-104 [facility] Amphetamine Screen Ql (U)Ord ered By: Rakesh Newby on 09-12-2022 Amphetamines Ql (U) Negative Negative [facility] Aspartate aminotransferase [ Enzymatic activity/volume] in Serum or PlasmaOrdered By: Hakan Emerson on 09-12-2022 AST [Catalytic activity/Vol] 16 U/L 13-39 [facility] Automated erythrocytes count in urine sediment (number/area)Ordered By: Hakan Emerson on 09-12-2022 RBC Auto (Urine sed) [#/Area] 5-9 [HPF] 0-4 [facility] Automated leukocytes count i n urine sediment (number/area)Ordered By: Hakan Emerson on 09-12-2022 WBC Auto (Urine sed) [#/Area] None seen [HPF] 0-4 [facility] Barbiturates [Presence] in U rine by Screen methodOrdered By: Rakesh Newby on 09-12-2022 Barbiturates Screen Ql (U) Negative Negative [facility] Basophils Auto (Bld) [#/Vol] Ordered By: Hakan Emerson on 09-12-2022 Basophils (Bld) [#/Vol] 0.0 10*3/uL 0.0-0.2 [facility] Basophils/100 WBC Auto (Bld) Ordered By: Hakan Emerson on 09-12-2022 Basophils/100 WBC (Bld) 0.5 % . [facility] Benzodiazepines Screen Ql (U )Ordered By: Rakesh Newby on 09-12-2022 Benzodiazepines Ql (U) Negative Negative [facility] Benzoylecgonine [Presence] i n Urine by Screen methodOrdered By: Rakesh Newby on 09-12-2022 Benzoylecgonine Screen Ql (U) Negative Negative [facility] Bilirubin Test strip Ql (U)O rdered By: Hakan Emerson on 09-12-2022 Bilirubin Ql (U) Negative Negative [facility] Bilirubin.total [Mass/volume ] in Serum or PlasmaOrdered By: Hakan Emerson on 09-12-2022 Bilirubin [Mass/Vol] 0.6 mg/dL 0.3-1.0 [facility] Calcium [Mass/volume] in Ser um or PlasmaOrdered By: Hakan Emerson on 09-12-2022 Calcium [Mass/Vol] 8.5 mg/dL 8.6-10.3 [facility] Cannabinoids [Presence] in U rine by Screen methodOrdered By: Rakesh Newby on 09-12-2022 Cannabinoids Screen Ql (U) Negative Negative [facility] Comment on above: These are unconfirme d results and should not be used for legal purposes. Drug Cut-Off Concentration: AMPH 1000 ng/mL JEANNE 200 ng/mL VALENTINA 200 ng/mL COCM 300 ng/mL OP 300 ng/mL PCP 25 ng/mL THC 20 ng/mL Carbon dioxide, total [Moles /volume] in Serum or PlasmaOrdered By: Hakan Emerson on 09-12-2022 CO2 [Moles/Vol] 25.4 mmol/L 21.0-31.0 [facility] Chloride [Moles/volume] in S rosa maria or PlasmaOrdered By: Hakan Emerson on 09-12-2022 Chloride [Moles/Vol] 103 mmol/L 98-107 [facility] Color Auto (U)Ordered By: Juan Emerson on 09-12-2022 Color (U) Yellow Yellow [facility] Creatinine [Mass/volume] in Serum or PlasmaOrdered By: Hakan Emerson on 09-12-2022 Creatinine [Mass/Vol] 1.75 mg/dL 0.70-1.30 [facility] Eosinophils Auto (Bld) [#/Vo l]Ordered By: Hakan Emerson on 09-12-2022 Eosinophils (Bld) [#/Vol] 0.3 10*3/uL 0.0-0.45 [facility] Eosinophils/100 WBC Auto (Bl d)Ordered By: Hakan Emerson on 09-12-2022 Eosinophils/100 WBC (Bld) 3.9 % . [facility] Erythrocyte distribution wid th Auto (RBC) [Ratio]Ordered By: Hakan Emerson on 09-12-2022 Erythrocyte distribution width (RBC) [Ratio] 13.3 % 12.0-14.8 [facility] Globulin Calc (S) [Mass/Vol] Ordered By: Hakan Emerson on 09-12-2022 Globulin (S) [Mass/Vol] 3.1 g/dL [facility] Glucose [Mass/volume] in Ser um or PlasmaOrdered By: Hakan Emerson on 09-12-2022 Glucose [Mass/Vol] 91 mg/dL 70-100 [facility] Comment on above: ADA recommended refe rence rangeRandom Glucose Reference Range is dependent on time and content of last meal. Glucose of more than 200 mg/dL in a nonstressed, ambulatory subject supports the diagnosis of Diabetes Mellitus. Hematocrit Auto (Bld) [Volum e fraction]Ordered By: Hakan Emerson on 09-12-2022 Hematocrit (Bld) [Volume fraction] 40.9 % 38.8-50.0 [facility] Hemoglobin [Mass/volume] in BloodOrdered By: Hakan Emerson on 09-12-2022 Hemoglobin (Bld) [Mass/Vol] 13.7 g/dL 13.0-17.0 [facility] Ketones Auto test strip (U) [Mass/Vol]Ordered By: Hakan Emerson on 09-12-2022 Ketones (U) [Mass/Vol] Negative Negative [facility] Laboratory - UrinalysisOrder ed By: Hakan Emerson on 09-12-2022 Hyaline casts LM Ql (Urine sed) None seen [LPF] 0-8 [facility] Leukocytes [#/volume] correc mary for nucleated erythrocytes in Blood by Automated counOrdered By: Hakan Emerson on 09-12-2022 WBC corrected for nucl RBC Auto (Bld) [#/Vol] 8.0 10*3/uL 4.1-10.5 [facility] Lymphocytes Auto (Bld) [#/Vo l]Ordered By: Hakan Emerson on 09-12-2022 Lymphocytes (Bld) [#/Vol] 1.4 10*3/uL 1.00-4.8 [facility] Lymphocytes/100 WBC Auto (Bl d)Ordered By: Hakan Emerson on 09-12-2022 Lymphocytes/100 WBC (Bld) 17.9 % . [facility] MCH Auto (RBC) [Entitic mass ]Ordered By: Hakan Emerson on 09-12-2022 MCH (RBC) [Entitic mass] 31.0 pg 27.5-35.2 [facility] MCHC Auto (RBC) [Mass/Vol]Or dered By: Hakan Emerson on 09-12-2022 MCHC (RBC) [Mass/Vol] 33.5 g/dL 32.5-35.6 [facility] MCV Auto (RBC) [Entitic vol] Ordered By: Hakan Emerson on 09-12-2022 MCV (RBC) [Entitic vol] 92.6 fL 83.5-101 [facility] Monocyte distribution width [Entitic volume] in Blood by AutomatedOrdered By: Hakan Emerson on 09-12-2022 Monocyte distribution width Auto (Bld) [Entitic vol] 17.85 % 0.00-20.00 [facility] Monocytes Auto (Bld) [#/Vol] Ordered By: Hakan Emerson on 09-12-2022 Monocytes (Bld) [#/Vol] 0.9 10*3/uL 0.0-0.8 [facility] Monocytes/100 WBC Auto (Bld) Ordered By: Hakan Emerson on 09-12-2022 Monocytes/100 WBC (Bld) 11.0 % . [facility] Neutrophils Auto (Bld) [#/Vo l]Ordered By: Hakan Emerson on 09-12-2022 Neutrophils (Bld) [#/Vol] 5.3 10*3/uL 1.8-7.7 [facility] Neutrophils/100 WBC Auto (Bl d)Ordered By: Hakan Emerson on 09-12-2022 Neutrophils/100 WBC (Bld) 66.7 % . [facility] Nitrite Test strip Ql (U)Ord ered By: Hakan Emerson on 09-12-2022 Nitrite Ql (U) Negative Negative [facility] No Panel InformationOrdered By: Hakan Emerson on 09-12-2022 Estimated GFR (CKD-EPI) 39.605 mL/Min [facility] Creatinine Clearance (Chem 35.10 [facility] Nucleated erythrocytes [Pres ence] in Blood by Automated countOrdered By: Hakan Emerson on 09-12-2022 Nucleated RBC Auto Ql (Bld) 0.1 /100{WBC} 0-0.5 [facility] Opiates [Presence] in Urine by Screen methodOrdered By: Rakesh Newby on 09-12-2022 Opiates Screen Ql (U) Negative Negative [facility] Phencyclidine Screen Ql (U)O rdered By: Rakesh Newby on 09-12-2022 Phencyclidine Ql (U) Negative Negative [facility] Platelet mean volume Auto (B ld) [Entitic vol]Ordered By: Hakan Emerson on 09-12-2022 Platelet mean volume (Bld) [Entitic vol] 6.8 fL 6.6-10.1 [facility] Platelets Auto (Bld) [#/Vol] Ordered By: Hakan Emerson on 09-12-2022 Platelets (Bld) [#/Vol] 449 10*3/uL 150-450 [facility] Potassium [Moles/volume] in Serum or PlasmaOrdered By: Hakan Emerson on 09-12-2022 Potassium [Moles/Vol] 4.3 mmol/L 3.5-5.1 [facility] Protein Auto test strip (U) [Mass/Vol]Ordered By: Hakan Emerson on 09-12-2022 Protein (U) [Mass/Vol] Negative Negative [facility] Protein [Mass/volume] in Ser um or PlasmaOrdered By: Hakan Emerson on 09-12-2022 Protein [Mass/Vol] 6.7 g/dL 6.4-8.9 [facility] RBC Auto (Bld) [#/Vol]Ordere d By: Hakan Emerson on 09-12-2022 RBC (Bld) [#/Vol] 4.42 10*6/uL 3.90-5.60 [facility] Serum or plasma albumin/glob ulin mass ratioOrdered By: Hakan Emerson on 09-12-2022 Albumin/Globulin [Mass ratio] 1.2 {ratio} [facility] Serum or plasma anion gap de terminationOrdered By: Hakan Emerson on 09-12-2022 Anion gap [Moles/Vol] 11.9 mmol/L 6.0-15.0 [facility] Sodium [Moles/volume] in Ser um or PlasmaOrdered By: Hakan Emerson on 09-12-2022 Sodium [Moles/Vol] 136 mmol/L 136-145 [facility] Specific gravity Auto test s trip (U) [Rel density]Ordered By: Hakan Emerson on 09-12-2022 Specific gravity (U) [Rel density] 1.011 1.001-1.030 [facility] Squamous epithelial cells de tection in urine sediment by light microscopyOrdered By: Hakan Emerson on 09-12-2022 Epithelial cells.squamous LM Ql (Urine sed) None seen [HPF] 0-2 [facility] Troponin I.cardiac [Mass/vol ume] in Serum or Plasma by Detection limit <= 0.01 ng/Ordered By: Rakesh Newby on 09-12-2022 Troponin I.cardiac DL <= 0.01 ng/mL [Mass/Vol] 6.0 pg/mL 0.0-20.0 [facility] Urea nitrogen [Mass/volume] in Serum or PlasmaOrdered By: Hakan Emerson on 09-12-2022 Urea nitrogen [Mass/Vol] 21 mg/dL 7-25 [facility] Urine bacteria detection by automated methodOrdered By: Hakan Emerson on 09-12-2022 Bacteria Auto Ql (U) None seen None Seen [facility] Urine clarity by refractomet ry automatedOrdered By: Hakan Emerson on 09-12-2022 Clarity Refractometry automated (U) Clear Clear [facility] Urine glucose measurement by automated test strip (mass/volume)Ordered By: Hakan Emerson on 09-12-2022 Glucose Auto test strip (U) [Mass/Vol] Normal mg/dL Normal [facility] Urine hemoglobin detection b y automated test stripOrdered By: Hakan Emerson on 09-12-2022 Hemoglobin Auto test strip Ql (U) Trace Negative [facility] Urine leukocyte esterase det ection by automated test stripOrdered By: Hakan Emerson on 09-12-2022 Leukocyte esterase Auto test strip Ql (U) Negative Negative [facility] Urobilinogen Auto test strip (U) [Mass/Vol]Ordered By: Hakan Emerson on 09-12-2022 Urobilinogen (U) [Mass/Vol] Normal mg/dL Normal [facility] WBC Auto (Bld) [#/Vol]Ordere d By: Hakan Emerson on 09-12-2022 WBC (Bld) [#/Vol] 8.0 10*3/uL 4.1-10.5 [facility] pH Auto test strip (U)Ordere d By: Hakan Emerson on 09-12-2022 pH (U) 6.0 [pH] 5.0-9.0 [facility] PROF CHEM 8 (BAS METB)on Anion gap [Moles/Vol] 14.0 mmol/L Normal [facility] Comment on above: Performed By: #### P SASC, BMP #### [facility] [address] [id number] [place] Calcium [Mass/Vol] 8.9 mg/dL Normal 8.4-10.2 [facility] Comment on above: Performed By: #### P SASC, BMP #### [facility] [address] [id number] [place] Chloride [Moles/Vol] 98 mmol/L Normal 98-107 [facility] Comment on above: Performed By: #### P SASC, BMP #### [facility] [address] [id number] [place] CO2 [Moles/Vol] 26.2 mmol/L Normal 22.0-30.0 [facility] Comment on above: Performed By: #### P SASC, BMP #### [facility] [address] [id number] [place] Creatinine [Mass/Vol] 1.46 mg/dL Critically high 0.66-1.25 [facility] Comment on above: Performed By: #### P SASC, BMP #### [facility] [address] [id number] [place] EGFR-AF PERUVIAN 57 mL/min/1.73m2 Critically low >=60 [facility] Comment on above: Performed By: #### P SASC, BMP #### [facility] [address] [id number] [place] EGFR-NON AF PERUVIAN 47 mL/min/1.73m2 Critically low >=60 [facility] Comment on above: Performed By: #### P SASC, BMP #### [facility] [address] [id number] [place] Glucose [Mass/Vol] 136 mg/dL Critically high 74-106 T [facility] Comment on above: Performed By: #### P SASC, BMP #### [facility] [address] [place] [address] [place] Potassium [Moles/Vol] 4.2 mmol/L Normal 3.4-5.0 [facility] Comment on above: Performed By: #### P SASC, BMP #### [facility] [address] [place] [address] [place] Sodium [Moles/Vol] 134 mmol/L Critically low 137-145 [facility] [place] Comment on above: Performed By: #### P SASC, BMP #### [facility] [address] [place] [address] [place] Urea nitrogen [Mass/Vol] 17.0 mg/dL Normal 9.0-20.0 [facility] Comment on above: Performed By: #### P SASC, BMP #### [facility] [address] [place] [address] [place] Urea nitrogen/Creatinine [Mass ratio] 11.6 mg/mg Normal [facility] Comment on above: Performed By: #### P SASC, BMP #### [facility] [address] [place], [place] [id number] [place] CT LUNG CANCER SCREENINGon 0 05-10-2020 CT LUNG CANCER SCREENING EXAMINATION: CT LUNG CANCER SCREENING HISTORY: Tobacco dependence caused by cigarettes COMPARISON: 05/12/2019, 11/09/2018 TECHNIQUE: Axial, Coronal, and Sagittal images were created without the administration of IV contrast material. Dose reduction techniques were achieved by using automated exposure control and/or adjustment of mA and/or kV according to patient size and/or use of iterative reconstruction technique. FINDINGS: LUNGS: Moderate diffuse bilateral centrilobular emphysema with an apical predominance. Scattered subcentimeter calcified and noncalcified pulmonary and subpleural nodules, stable both in number and size from the prior exam. No new definite nodule or mass PLEURA: No mass, effusion, or pneumothorax. VASCULATURE: No abnormality. LUIS MIGUEL: No mass or pathologic adenopathy. MEDIASTINUM: No mass or pathologic adenopathy. CARDIAC: No enlargement, pericardial thickening, or significant calcification. AORTA: No aneurysm or dissection. CHEST WALL: No mass or axillary adenopathy BONES: No bone lesion or fracture. LIMITED ABDOMEN: No suspicious findings. Limited images of the upper abdomen. OTHER: Negative. IMPRESSION: LUNG SCREENING: Lung-RADS Category 2- Benign Appearance or Behavior. Nodules with a very low likelihood of becoming a clinically active cancer due to size or lack of growth. 2. Continue annual screening with LDCT in 12 months. Electronically authenticated by: COBY LUNDBERG Date: 2020-05-10 10:52 Normal [facility] Vital Signs Date Time Vital Sign Value Performing Clinician Facility 12-29-2024 09:58-0400 Body height 175.26 cm Aroldo INCIDE DO Work Phone: [facility] 12-29-2024 09:58-0400 Body mass index (BMI) [Ratio] 24.6 kg/m2 Aroldo Ball DO Work Phone: [facility] 12-29-2024 09:58-0400 Body weight 75.74 kg Aroldo Ball DO Work Phone: [facility] 12-29-2024 09:58-0400 Diastolic blood pressure 71 mm[Hg] Aroldo Ball DO Work Phone: [facility] 12-29-2024 09:58-0400 Heart rate 78 /min Aroldo Ball DO Work Phone: [facility] 12-29-2024 09:58-0400 Respiratory rate 12 /min Aroldo Ball DO Work Phone: [facility] 12-29-2024 09:58-0400 Systolic blood pressure 134 mm[Hg] Aroldo Ball DO Work Phone: [facility] 06-30-2024 09:24-0500 Body height 175.26 cm Aroldo Ball DO Work Phone: [facility] 06-30-2024 09:24-0500 Body mass index (BMI) [Ratio] 25.5 kg/m2 Aroldo Ball DO Work Phone: [facility] 06-30-2024 09:24-0500 Body weight 78.58 kg Aroldo Ball DO Work Phone: [facility] 06-30-2024 09:24-0500 Diastolic blood pressure 78 mm[Hg] Aroldo Ball DO Work Phone: [facility] 06-30-2024 09:24-0500 Heart rate 71 /min Aroldo Ball DO Work Phone: [facility] 06-30-2024 09:24-0500 Respiratory rate 12 /min Aroldo Ball DO Work Phone: [facility] 06-30-2024 09:24-0500 SaO2% (BldA) [Mass fraction] 96 % Aroldo Ball DO Work Phone: [facility] 06-30-2024 09:24-0500 Systolic blood pressure 123 mm[Hg] Aroldo Ball DO Work Phone: [facility] 06-22-2024 14:26-0500 Body height 175.3 cm Simran Lowe PA Work Phone: [facility] 06-22-2024 14:26-0500 Body mass index (BMI) [Ratio] 25.7 kg/m2 Simran Lowe PA Work Phone: [facility] 06-22-2024 14:26-0500 Body weight 78.93 kg Simran Lowe PA Work Phone: [facility] 06-22-2024 14:26-0500 Diastolic blood pressure 82 mm[Hg] Simran Lowe PA Work Phone: [facility] 06-22-2024 14:26-0500 Systolic blood pressure 142 mm[Hg] Simran Lowe PA Work Phone: [facility] 05-23-2024 10:31-0500 Body height 175.26 cm Aroldo Ball DO Work Phone: [facility] 05-23-2024 10:31-0500 Body mass index (BMI) [Ratio] 23.6 kg/m2 Aroldo Ball DO Work Phone: [facility] 05-23-2024 10:31-0500 Body temperature 97.8 [degF] Aroldo Ball DO Work Phone: [facility] 05-23-2024 10:31-0500 Body weight 72.57 kg Aroldo Ball DO Work Phone: [facility] 05-23-2024 10:31-0500 Diastolic blood pressure 68 mm[Hg] Aroldo Ball DO Work Phone: [facility] 05-23-2024 10:31-0500 Heart rate 78 /min Aroldo Ball DO Work Phone: [facility] 05-23-2024 10:31-0500 Respiratory rate 16 /min Aroldo Ball DO Work Phone: [facility] 05-23-2024 10:31-0500 SaO2% (BldA) [Mass fraction] 98 % Aroldo Ball DO Work Phone: [facility] 05-23-2024 10:31-0500 Systolic blood pressure 112 mm[Hg] Aroldo Ball DO Work Phone: [facility] 05-17-2024 13:52-0500 Body height 175.3 cm Aroldo Rodcek DO Work Phone: [facility] 05-17-2024 13:52-0500 Body mass index (BMI) [Ratio] 24.81 kg/m2 Aroldo Murcek DO Work Phone: [facility] 05-17-2024 13:52-0500 Body weight 76.2 kg Aroldo Rodcek DO Work Phone: [facility] 03-27-2024 08:24-0500 Body height 175.3 cm Radha Ponce PA Work Phone: [facility] 03-27-2024 08:24-0500 Body mass index (BMI) [Ratio] 24.81 kg/m2 Radha Ponce PA Work Phone: [facility] 03-27-2024 08:24-0500 Body weight 76.2 kg Radha William PA Work Phone: [facility] 03-27-2024 08:24-0500 Diastolic blood pressure 78 mm[Hg] Radha William PA Work Phone: [facility] 03-27-2024 08:24-0500 Heart rate 72 /min Radha William PA Work Phone: [facility] 03-27-2024 08:24-0500 Respiratory rate 16 /min Radha Ponce PA Work Phone: [facility] 03-27-2024 08:24-0500 SaO2% (BldA) [Mass fraction] 94 % Radha William PA Work Phone: [facility] 03-27-2024 08:24-0500 Systolic blood pressure 120 mm[Hg] Radha Ponce PA Work Phone: [facility] 02-16-2024 13:17-0400 Body height 175.3 cm Aroldo Murcek DO Work Phone: [facility] 02-16-2024 13:17-0400 Body mass index (BMI) [Ratio] 24.22 kg/m2 Aroldo Murcek DO Work Phone: [facility] 02-16-2024 13:17-0400 Body weight 74.39 kg Aroldo Murcek DO Work Phone: [facility] 01-05-2024 13:45-0400 Body height 175.3 cm Aroldo Murcek DO Work Phone: [facility] 01-05-2024 13:45-0400 Body mass index (BMI) [Ratio] 24.22 kg/m2 Aroldo Murcek DO Work Phone: [facility] 01-05-2024 13:45-0400 Body weight 74.39 kg Aroldo Murcek DO Work Phone: [facility] 12-27-2023 10:28-0400 Body height 175.26 cm DO Aroldo Ball Work Phone: [facility] 12-27-2023 10:28-0400 Body mass index (BMI) [Ratio] 23.1 kg/m2 DO Aroldo Ball Work Phone: [facility] 12-27-2023 10:28-0400 Body weight 71.21 kg DO Aroldo Ball Work Phone: [facility] 12-27-2023 10:28-0400 Diastolic blood pressure 62 mm[Hg] DO Aroldo Ball Work Phone: [facility] 12-27-2023 10:28-0400 Heart rate 66 /min DO Aroldo Ball Work Phone: [facility] 12-27-2023 10:28-0400 SaO2% (BldA) [Mass fraction] 98 % DO Aroldo Ball Work Phone: [facility] 12-27-2023 10:28-0400 Systolic blood pressure 110 mm[Hg] DO Aroldo Ball Work Phone: [facility] 12-09-2023 13:55-0400 Diastolic blood pressure 89 mm[Hg] DO Aroldo Ball Work Phone: [facility] 12-09-2023 13:55-0400 Heart rate 78 /min DO Aroldo Ball Work Phone: [facility] 12-09-2023 13:55-0400 Respiratory rate 16 /min DO Aroldo Ball Work Phone: [facility] 12-09-2023 13:55-0400 SaO2% (BldA) [Mass fraction] 93 % DO Aroldo Ball Work Phone: [facility] 12-09-2023 13:55-0400 Systolic blood pressure 138 mm[Hg] DO Aroldo Ball Work Phone: [facility] 12-09-2023 12:35-0400 Body temperature 97 [degF] DO Aroldo Ball Work Phone: [facility] 12-09-2023 09:17-0400 Body height 177.8 cm DO Aroldo Ball Work Phone: [facility] 12-09-2023 09:17-0400 Body weight 71.6 kg DO Aorldo Ball Work Phone: [facility] 05-18-2023 10:30-0500 Body height 175.26 cm Johan Dawn Other [employer] Other 05-18-2023 10:30-0500 Body mass index (BMI) [Ratio] 23.48 kg/m2 Johan Dawn Other [employer] Other 05-18-2023 10:30-0500 Body temperature 96.9 [degF] Johan Dawn Other [employer] Other 05-18-2023 10:30-0500 Body weight 72.12 kg Johan Dawn Other [employer] Other 05-18-2023 10:30-0500 Diastolic blood pressure 64 mm[Hg] Johan Dawn Other [employer] Other 05-18-2023 10:30-0500 SaO2% (BldA) [Mass fraction] 97 % Johan Dawn Other [employer] Other 05-18-2023 10:30-0500 Systolic blood pressure 138 mm[Hg] Johan Duranrediana Other [employer] Other 05-05-2023 09:00-0500 Body height 175.26 cm Aroldo Ball Other [employer] Other 05-05-2023 09:00-0500 Body mass index (BMI) [Ratio] 23.51 kg/m2 Aroldo Ball Other [employer] Other 05-05-2023 09:00-0500 Body weight 72.21 kg Aroldo Ball Other [employer] Other 05-05-2023 09:00-0500 Diastolic blood pressure 74 mm[Hg] Aroldo Ball Other [employer] Other 05-05-2023 09:00-0500 Respiratory rate 12 /min Aroldo Ball Other [employer] Other 05-05-2023 09:00-0500 Systolic blood pressure 133 mm[Hg] Aroldo Ball Other [employer] Other 04-19-2023 09:45-0500 Body height 175.26 cm Kimmy Rutherfordlizelsie Other [employer] Other 04-19-2023 09:45-0500 Body mass index (BMI) [Ratio] 22.15 kg/m2 Kimmy Rutherfordjair Other [employer] Other 04-19-2023 09:45-0500 Body temperature 97.6 [degF] Kimmy Rutherfordjair Other [employer] Other 04-19-2023 09:45-0500 Body weight 68.04 kg Kimmy Rutherfordjair Other [employer] Other 04-19-2023 09:45-0500 Diastolic blood pressure 68 mm[Hg] Kimmy Hines Other [employer] Other 04-19-2023 09:45-0500 Systolic blood pressure 136 mm[Hg] Kimmy Rutherfordjair Other [employer] Other 03-18-2023 08:00-0500 Body temperature 98 [degF] DO Aroldo Ball Work Phone: [facility] 03-18-2023 08:00-0500 Diastolic blood pressure 67 mm[Hg] DO Aroldo Ball Work Phone: [facility] 03-18-2023 08:00-0500 Heart rate 85 /min DO Aroldo Ball Work Phone: [facility] 03-18-2023 08:00-0500 Respiratory rate 12 /min DO Aroldo Ball Work Phone: [facility] 03-18-2023 08:00-0500 SaO2% (BldA) [Mass fraction] 96 % DO Aroldo Ball Work Phone: [facility] 03-18-2023 08:00-0500 Systolic blood pressure 130 mm[Hg] DO Aroldo Ball Work Phone: [facility] 03-18-2023 03:40-0500 Body weight 68.6 kg DO Aroldo Ball Work Phone: [facility] 03-17-2023 12:30-0500 Inhaled oxygen flow rate 6 L/min DO Aroldo Ball Work Phone: [facility] 03-17-2023 09:37-0500 Body height 175.26 cm DO Aroldo Ball Work Phone: [facility] 03-17-2023 09:37-0500 Body mass index (BMI) [Ratio] 23.1 kg/m2 DO Aroldo Ball Work Phone: [facility] 03-01-2023 09:45-0400 Body height 175.26 cm Kimmy Rutherfordjair Other [employer] Other 03-01-2023 09:45-0400 Body mass index (BMI) [Ratio] 22.15 kg/m2 Kimmy Hines Other [employer] Other 03-01-2023 09:45-0400 Body temperature 97.8 [degF] Kimmy Hines Other [employer] Other 03-01-2023 09:45-0400 Body weight 68.04 kg Kimmy Hines Other [employer] Other 03-01-2023 09:45-0400 Diastolic blood pressure 72 mm[Hg] Kimmy Hines Other [employer] Other 03-01-2023 09:45-0400 SaO2% (BldA) [Mass fraction] 94 % Kimmy Hines Other [employer] Other 03-01-2023 09:45-0400 Systolic blood pressure 126 mm[Hg] Kimmy Hines Other [employer] Other 01-18-2023 10:15-0400 Body height 175.26 cm Aroldo Ball Other [employer] Other 01-18-2023 10:15-0400 Body mass index (BMI) [Ratio] 22.98 kg/m2 Aroldo Ball Other [employer] Other 01-18-2023 10:15-0400 Body weight 70.58 kg Aroldo Ball Other [employer] Other 01-18-2023 10:15-0400 Diastolic blood pressure 83 mm[Hg] Aroldo Ball Other [employer] Other 01-18-2023 10:15-0400 Respiratory rate 12 /min Aroldo Ball Other [employer] Other 01-18-2023 10:15-0400 Systolic blood pressure 149 mm[Hg] Aroldo Ball Other [employer] Other 12-24-2022 10:30-0400 Body height 175.26 cm Aroldo Ball Other [employer] Other 12-24-2022 10:30-0400 Body mass index (BMI) [Ratio] 22.44 kg/m2 Aroldo Ball Other [employer] Other 12-24-2022 10:30-0400 Body weight 68.95 kg Aroldo Ball Other [employer] Other 12-24-2022 10:30-0400 Diastolic blood pressure 88 mm[Hg] Aroldo Ball Other [employer] Other 12-24-2022 10:30-0400 Respiratory rate 12 /min Aroldo Ball Other [employer] Other 12-24-2022 10:30-0400 Systolic blood pressure 136 mm[Hg] Aroldo Ball Other [employer] Other 11-18-2022 11:00-0400 Body height 175.26 cm Coby Cordon Other [employer] Other 11-18-2022 11:00-0400 Body mass index (BMI) [Ratio] 22.15 kg/m2 Coby Cordon Other [employer] Other 11-18-2022 11:00-0400 Body weight 68.04 kg Coby Cordon Other [employer] Other 11-18-2022 11:00-0400 Diastolic blood pressure 86 mm[Hg] Coby Cordon Other [employer] Other 11-18-2022 11:00-0400 SaO2% (BldA) [Mass fraction] 99 % Coby Cordon Other [employer] Other 11-18-2022 11:00-0400 Systolic blood pressure 139 mm[Hg] Coby Cordon Other [employer] Other 11-17-2022 10:00-0400 Body height 175.26 cm Aroldo Ball Other [employer] Other 11-17-2022 10:00-0400 Body mass index (BMI) [Ratio] 22.46 kg/m2 Aroldo Ball Other [employer] Other 11-17-2022 10:00-0400 Body weight 68.99 kg Aroldo Ball Other [employer] Other 11-17-2022 10:00-0400 Diastolic blood pressure 74 mm[Hg] Aroldo Ball Other [employer] Other 11-17-2022 10:00-0400 Respiratory rate 12 /min Aroldo Ball Other [employer] Other 11-17-2022 10:00-0400 Systolic blood pressure 128 mm[Hg] Aroldo Ball Other [employer] Other 11-11-2022 10:30-0400 Body height 175.26 cm Aroldo Ball Other [employer] Other 11-11-2022 10:30-0400 Body mass index (BMI) [Ratio] 22.47 kg/m2 Aroldo Ball Other [facility] [employer] Other 11-11-2022 10:30-0400 Body weight 69.04 kg Aroldo Ball Other [facility] [employer] Other 11-11-2022 10:30-0400 Diastolic blood pressure 77 mm[Hg] Aroldo Ball Other [facility] [employer] Other 11-11-2022 10:30-0400 Respiratory rate 12 /min Aroldo Ball Other [facility] [employer] Other 11-11-2022 10:30-0400 Systolic blood pressure 130 mm[Hg] Aroldo Ball Other [facility] [employer] Other 09-14-2022 12:00-0400 Diastolic blood pressure 80 mm[Hg] DO Rakesh Newby Work Phone: [facility] 09-14-2022 12:00-0400 Heart rate 84 /min DO Rakesh Newby Work Phone: [facility] 09-14-2022 12:00-0400 Respiratory rate 18 /min DO Rakesh Newby Work Phone: [facility] 09-14-2022 12:00-0400 SaO2% (BldA) [Mass fraction] 96 % DO Rakesh Newby Work Phone: [facility] 09-14-2022 12:00-0400 Systolic blood pressure 152 mm[Hg] DO Rakesh Newby Work Phone: [facility] 09-14-2022 08:00-0400 Body temperature 98.2 [degF] DO Rakesh Newby Work Phone: [facility] 09-14-2022 05:10-0400 Body weight 68.6 kg DO Rakesh Newby Work Phone: [facility] 09-12-2022 20:15-0400 Body height 175.26 cm DO Rakesh Newby Work Phone: [facility] 09-12-2022 20:15-0400 Body temperature 98.4 [degF] DO Rakesh Newby Work Phone: [facility] 09-12-2022 20:15-0400 Body weight 68.2 kg DO Rakesh Newby Work Phone: [facility] 09-12-2022 20:15-0400 Diastolic blood pressure 80 mm[Hg] DO Rakesh Newby Work Phone: [facility] 09-12-2022 20:15-0400 Heart rate 88 /min DO Rakesh Newby Work Phone: [facility] 09-12-2022 20:15-0400 Respiratory rate 16 /min DO Rakesh Newby Work Phone: [facility] 09-12-2022 20:15-0400 SaO2% (BldA) [Mass fraction] 97 % DO Rakesh Newby Work Phone: [facility] 09-12-2022 20:15-0400 Systolic blood pressure 160 mm[Hg] DO Rakesh Newby Work Phone: [facility] Encounters Encounter Date Encounter Type Care Provider Facility Start: 12-29-2024 End: 12-29-2024 ambulatory Aroldo Ace DO Work Phone: [facility] Work Phone: Start: 12-29-2024 End: 12-29-2024 Patient encounter [facility] Work Phone: Start: 12-20-2024 End: 12-20-2024 Bamboo flowsdarryn Hutson MD [facility] Start: 12-20-2024 End: 12-20-2024 Bamboo flowsdarryn Hutson MD [facility] Start: 12-20-2024 End: 12-20-2024 Office outpatient visit 15 minutes Usha Hutson MD Work Phone: [facility] Comment on above: Seborrheic keratosis (Primary Dx); Lentigines; Actinic keratosis; Other seborrheic dermatitis Start: 12-20-2024 End: 12-20-2024 ambulatory USHA HUTSON Not Available Start: 06-30-2024 End: 06-30-2024 ambulatory Aroldo Ace DO Work Phone: [facility] Work Phone: Start: 06-30-2024 End: 06-30-2024 Patient encounter procedure Aroldo Ace DO Work Phone: [facility] Work Phone: Start: 06-22-2024 End: 06-22-2024 ambulatory SIMRAN MENG Not Available Start: 06-22-2024 End: 06-22-2024 Office outpatient visit 15 minutes Simran Lowe PA Work Phone: [facility] Comment on above: Transient alteration of awareness (Primary Dx); Ventriculomegaly of brain, congenital (CMS/HCC) Start: 06-22-2024 End: 06-22-2024 Bamboo flowsheet Simran Lowe PA Work Phone: [facility] Start: 06-22-2024 End: 06-22-2024 Bamboo flowsheet Simran Martele PA Work Phone: [facility] Start: 06-19-2024 End: 06-19-2024 Bamboo flowsheet Usha Hutson MD Work Phone: [facility] Start: 06-19-2024 End: 06-19-2024 Bamboo flowsdarryn Hutson MD Work Phone: [facility] Start: 06-19-2024 End: 06-19-2024 Office outpatient visit 15 minutes Usha Hutson MD Work Phone: [facility] Comment on above: Other seborrheic vinny matitis (Primary Dx); Actinic keratosis; Seborrheic keratosis; History of basal cell carcinoma; Lentigines; History of SCC (squamous cell carcinoma) of skin Start: 06-19-2024 End: 06-19-2024 ambulatory USHA HUTSON Not Available Start: 05-23-2024 End: 05-23-2024 ambulatory Aroldo Ball DO Work Phone: [facility] Work Phone: Start: 05-23-2024 End: 05-23-2024 Patient encounter procedure Aroldo Ball DO Work Phone: [facility] Work Phone: Start: 05-17-2024 End: 05-17-2024 Bamboo flowsheet Aroldo Singh DO Work Phone: [facility] Start: 05-17-2024 End: 05-17-2024 Bamboo flowsheet Aroldo Singh DO Work Phone: [facility] Start: 05-17-2024 End: 05-17-2024 Office outpatient visit 25 minutes Aroldo Singh DO Work Phone: [facility] Comment on above: 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) Start: 05-17-2024 End: 05-17-2024 ambulatory AROLDO SINGH Not Available Start: 05-11-2024 End: 05-11-2024 Patient encounter procedure Aroldo Ball DO Work Phone: [facility] [address] [place] Work Phone: Start: 05-11-2024 End: 05-11-2024 ambulatory Aroldo Ball DO Work Phone: [facility] Work Phone: Start: 04-06-2024 End: 04-06-2024 Patient encounter procedure Aroldo Ball DO Work Phone: [facility] [place] Work Phone: Start: 04-06-2024 End: 04-06-2024 ambulatory Radha Ponce Facility:[facility] Start: 03-27-2024 End: 03-27-2024 Bamboo flowsheet Radha FORBES [facility] Phone[facility] [address] [facility] Start: 03-27-2024 End: 03-27-2024 Bamboo flowsheet Radha FORBES Work Phone: [facility] Start: 03-27-2024 End: 03-27-2024 ambulatory RADHA WILLIAM Not Available Start: 03-27-2024 End: 03-27-2024 Office outpatient visit 25 minutes Radha FORBES Work Phone: [facility] Comment on above: Transient alteration of awareness (Primary Dx); Ventriculomegaly of brain, congenital (CMS/HCC); Hyper reflexia Start: 03-16-2024 Non-patient / Non-visit Benjam in Ball DO Work Phone: [facility] Work Phone: Start: 03-01-2024 End: 03-01-2024 Bamboo flowsheet Usha Hutson MD Work Phone: [facility] Start: 03-01-2024 End: 03-01-2024 Bamboo flowsheet Usha Hutson MD Work Phone: [facility] Start: 03-01-2024 End: 03-01-2024 Patient encounter procedure Usha Hutson MD Work Phone: [facility] Comment on above: Basal cell carcinoma of skin of right upper limb, including shoulder (Primary Dx); Actinic keratosis Start: 03-01-2024 End: 03-01-2024 ambulatory USHA HUTSON Not Available Start: 02-16-2024 End: 02-16-2024 Bamboo flowsheet Aroldo Singh DO Work Phone: [facility] Start: 02-16-2024 End: 02-16-2024 Bamboo flowsheet Aroldo Singh DO Work Phone: [facility] Start: 02-16-2024 End: 02-16-2024 Postop follow up visit related to original px Aroldo Singh DO Work Phone: [facility] Comment on above: Lip cancer (Primary Dx) Start: 02-16-2024 End: 02-16-2024 ambulatory AROLDO SINGH Not Available Start: 01-05-2024 End: 01-05-2024 Bamboo flowsheet Aroldo Singh DO Work Phone: [facility] Start: 01-05-2024 End: 01-05-2024 Bamboo flowsheet Aroldo Singh DO Work Phone: [facility] Start: 01-05-2024 End: 01-05-2024 Postop follow up visit related to original px Aroldo Singh DO Work Phone: [facility] Comment on above: Cancer of the lip, o ral cavity, and pharynx (CMS/HCC) (Primary Dx) Start: 01-05-2024 End: 01-05-2024 ambulatory AROLDO SINGH Not Available Start: 12-28-2023 End: 12-28-2023 Bamboo flowsheet Usha Hutson MD Work Phone: [facility] Start: 12-28-2023 End: 12-31-2023 External Result Encounter Usha Hutson MD Work Phone: [facility] Unsolicited Start: 12-28-2023 End: 12-31-2023 External Result Encounter Usha Hutson MD Work Phone: [facility] External Department Unsolicited Start: 12-28-2023 End: 12-28-2023 Office outpatient visit 15 minutes Usha Hutson MD Work Phone: [facility] Comment on above: Seborrheic keratosis (Primary Dx); Actinic keratosis; Neoplasm of unspecified behavior of bone, soft tissue, and skin; Lentigines Start: 12-28-2023 End: 12-28-2023 ambulatory USHA HUTSON Not Available Start: 12-27-2023 End: 12-27-2023 ambulatory DO Aroldo Ace Work Phone: [facility] Work Phone: Start: 12-27-2023 End: 12-27-2023 Patient encounter procedure DO Aroldo Ace Work Phone: [facility] Work Phone: Start: 12-09-2023 End: 12-09-2023 Admission to same day surgery center DO Aroldo Ace Work Phone: [facility] [address] [place] Start: 12-09-2023 End: 12-09-2023 ambulatory DO Aroldo Ace Work Phone: [facility] Work Phone: Start: 12-06-2023 End: 12-06-2023 Patient encounter procedure DO Aroldo Ace Work Phone: [facility]-Pre-Surgical Testing Work Phone: Start: 12-06-2023 End: 12-06-2023 ambulatory DO Aroldo Ace Work Phone: [facility] Work Phone: Start: 12-06-2023 Encounter for preprocedural laboratory examination Aroldo Arellano [facility] Start: 12-02-2023 End: 12-02-2023 Patient encounter procedure DO Aroldo Ace Work Phone: [facility]-Lab [address] [place] Work Phone: Start: 12-02-2023 End: 12-02-2023 ambulatory DO Aroldo Ace Work Phone: [facility] Work Phone: Start: 07-13-2023 End: 07-13-2023 ambulatory Radha Ponce Facility:[facility] Start: 05-18-2023 End: 05-18-2023 ambulatory Johan Dawn Other [employer] Other Start: 05-18-2023 Patient encounter procedure Johan Dawn [facility] Start: 05-10-2023 Telephone encounter Aroldo VELOZ [facility] Start: 05-10-2023 End: 05-10-2023 ambulatory DO Aroldo Ace Work Phone: [facility] Work Phone: Start: 05-10-2023 End: 05-10-2023 Patient encounter procedure DO Aroldo Ace Work Phone: [facility]-CT [facility] [address] [place] Work Phone: Start: 05-05-2023 End: 05-05-2023 ambulatory Aroldo Ace Other [employer] Other Start: 05-05-2023 Office outpatient vi sit 25 minutes Aroldo Ace [facility] Start: 04-19-2023 End: 04-19-2023 ambulatory Kimmy Hines Other [employer] Other Start: 04-19-2023 Patient encounter procedure Kimmy Hines [facility] Start: 04-08-2023 End: 04-08-2023 ambulatory Aroldo Ace Other [employer] Other Start: 04-08-2023 Telephone encounter Aroldo VELOZ [facility] Start: 03-17-2023 End: 03-17-2023 ambulatory Aroldo Ace Other [employer] Other Start: 03-17-2023 Telephone encounter Aroldo Ace FP [facility] Start: 03-17-2023 End: 03-18-2023 Evaluation and management of inpatient DO Aroldo Ace Work Phone: [facility] Work Phone: Start: 03-10-2023 End: 03-10-2023 Emergency department patient visit Samanta Mat[place] Start: 03-10-2023 End: 03-11-2023 ambulatory Johan RAMACHANDRAN Facility:[facility] Start: 03-04-2023 End: 03-04-2023 ambulatory DO Aroldo Ball Work Phone: [facility] Work Phone: Start: 03-04-2023 End: 03-04-2023 Patient encounter procedure DO Aroldo Ball Work Phone: [facility] Work Phone: Start: 03-01-2023 End: 03-01-2023 ambulatory Kimmy Hines Other [employer] Other Start: 03-01-2023 Office outpatient vi sit 25 minutes Kimmy Hines [facility] Start: 02-23-2023 End: 02-23-2023 ambulatory DO Aroldo Ball Work Phone: [facility] Work Phone: Start: 02-23-2023 End: 02-23-2023 Patient encounter procedure DO Aroldo Ball Work Phone: [facility]-CT [address] Work Phone: Start: 02-02-2023 End: 02-02-2023 ambulatory Johan Dawn Other [employer] Other Start: 02-02-2023 Telephone encounter Johan Dawn [facility] Start: 01-18-2023 End: 01-18-2023 ambulatory Aroldo Ball Other [employer] Other Start: 01-18-2023 Office outpatient vi sit 25 minutes Aroldo Ball [facility] Start: 01-14-2023 End: 01-14-2023 ambulatory Aroldo Ball Other [employer] Other Start: 01-14-2023 Telephone encounter Aroldo VELOZ [facility] Start: 01-09-2023 End: 01-09-2023 ambulatory Aroldo Ace Other [employer] Other Start: 01-09-2023 Telephone encounter Aroldo VELOZ [facility] Start: 01-07-2023 End: 01-07-2023 ambulatory Aroldo Ace Other [employer] Other Start: 01-07-2023 Telephone encounter Aroldo VELOZ [facility] Start: 01-06-2023 End: 01-06-2023 ambulatory Aroldo Ace Other [employer] Other Start: 01-06-2023 Telephone encounter Aroldo VELOZ [facility] Start: 12-24-2022 End: 12-24-2022 ambulatory Aroldo Ace Other [employer] Other Start: 12-24-2022 Encounter for genera l adult medical examination without abnormal findings Aroldo Ace [facility] Start: 12-24-2022 Periodic preventive med est patient 65yrs& older Aroldo Ace [facility] Start: 12-03-2022 End: 12-03-2022 ambulatory DO Rakesh Newby Work Phone: [facility] Work Phone: Start: 12-03-2022 End: 12-03-2022 Patient encounter procedure DO Rakesh Newby Work Phone: [facility]-Sleep Lab Work Phone: Start: 12-03-2022 End: 12-03-2022 ambulatory DO Rakesh Newby Work Phone: [facility] Work Phone: Start: 12-03-2022 End: 12-03-2022 Patient encounter procedure DO Rakesh Newby Work Phone: [facility]-MRI [address] Work Phone: Start: 11-18-2022 Office outpatient vi sit 25 minutes Coby Cordon [facility] Start: 11-18-2022 End: 11-18-2022 ambulatory DO Rakesh Newby Work Phone: [employer] Other Start: 11-18-2022 End: 11-18-2022 Patient encounter procedure DO Rakesh Newby Work Phone: [facility]-Sleep Lab Work Phone: Start: 11-17-2022 End: 11-17-2022 ambulatory Aroldo Ace Other [employer] Other Start: 11-17-2022 Office outpatient vi sit 15 minutes Aroldo Ace [facility] Start: 11-11-2022 End: 11-11-2022 ambulatory Aroldo Ace Other [employer] Other Start: 11-11-2022 Office outpatient vi sit 15 minutes Aroldo Ace [facility] Start: 09-12-2022 End: 09-14-2022 Evaluation and management of inpatient DO Rakesh Newby Work Phone: [facility] [place] [facility] Work Phone: Start: 09-12-2022 End: 09-14-2022 observation encounter DO Rakesh Newby Work Phone: [facility] Work Phone: Start: 06-05-2020 End: 06-06-2020 Patient encounter procedure AROLDO JHONNY Facility:[facility] Start: 05-10-2020 End: 05-11-2020 Patient encounter procedure AROLDO JHONNY Facility:[facility] Procedures Date Procedure Procedure Detail Performing Clinician Start: 06-19-2024 CRYOTHERAPY SKIN LESION Usha Hutson MD Work Phone: Start: 05-11-2024 Computed tomography of abdomen and pelvis with contrast Aroldo Ace DO Work Phone: Start: 04-06-2024 CT of head without contrast Aroldo Ace DO Work Phone: Start: 03-01-2024 CRYOTHERAPY SKIN LESION Usha Hutson MD Work Phone: Start: 03-01-2024 DESTRUCTION OF LESION Kourtney tobar Giacomo Hutson MD Work Phone: Start: 12-28-2023 SKIN / NAIL BIOPSY Tee Hutson MD Work Phone: Start: 12-28-2023 CRYOTHERAPY SKIN LESION Usha Hutson MD Work Phone: Start: 12-28-2023 Level i surg patholo gy gross examination only Usha Hutson MD Work Phone: Start: 12-09-2023 Excision of lesion o f cheek DO Bday Work Phone: Start: 05-10-2023 Computed tomography angiography of abdominal and/or pelvic blood vessel DO Bday Work Phone: Start: 03-17-2023 Endovascular repair of abdominal aortic aneurysm DO Bday Work Phone: Start: 02-23-2023 CT of abdomen and pe lvis without contrast DO Bday Work Phone: Start: 12-03-2022 MRI of head DO Rakesh Ro binson Work Phone: Start: 09-12-2022 Plain chest X-ray DO Er ic Newby Work Phone: Start: 09-12-2022 CT of head without contrast DO Rakesh Newby Work Phone: Start: 06-05-2020 [object Object] SARAH ACE Comment on above: Performed By: #### P [facility] #### [facility] [address] [place] [address] [place] Plan of Treatment Date Care Activity Detail Author Start: 06-27-2025 End: 06-27-2025 Patient encounter procedure 06/27/2025 10:05 AM EST [facility] [address] [place] [address] Usha Hutson MD [address] [place] [address] [facility] Start: 01-03-2025 End: 01-03-2025 Patient encounter procedure 01/03/2025 9:00 AM EDT Office Visit [facility] [place] [address] [place] [id number] Simran Meng PA [address] [place], [place] [id number] [facility] [place] Start: 01-01-2025 Influenza vaccination Influenza Vaccine (#1) [facility] Start: 12-20-2024 End: 12-20-2024 Patient encounter procedure [facility] Comment on above: Arrived Start: 06-22-2024 End: 06-22-2024 Patient encounter procedure [facility] [place] [address] Start: 06-19-2024 End: 06-19-2024 Patient encounter procedure [facility] Comment on above: Arrived Start: 05-17-2024 End: 05-17-2024 Patient encounter procedure [facility] [place] Comment on above: Arrived Start: 03-27-2024 End: 03-27-2025 CT Head WO contrast CT head wo IV contrast Imaging Routine Ventriculomegaly of brain, congenital (CMS/HCC) Expected: 03/27/2024 (Approximate), Expires: 03/27/2025 [facility] Work Phone: Comment on above: Expected: 03/27/2024 (Approximate), Expi res: 03/27/2025 Start: 03-27-2024 End: 03-27-2024 Patient encounter procedure 03/27/2024 8:20 AM EST Office Visit [facility] [place] [address] [place] [address] Radha Ponce PA [address] [place], [place] [id number] [facility] [place] [address] Start: 03-01-2024 End: 03-01-2024 Patient encounter procedure [facility] Comment on above: Arrived Start: 02-16-2024 End: 02-16-2024 Patient encounter procedure [facility] [place] Comment on above: Arrived Start: 01-05-2024 End: 01-05-2024 Patient encounter procedure [facility] [place] Comment on above: Arrived Start: 01-02-2024 Influenza vaccination Influenza Vaccine (#1) [facility] Start: 12-28-2023 End: 12-28-2023 Patient encounter procedure 12/28/2023 9:35 AM EDT Office Visit [facility] [address] [place] [address] Usha Hutson MD [address] [place] [address] Arrived [facility] Comment on above: Arrived Start: 12-09-2023 [facility] Start: 03-18-2023 [facility] Start: 03-17-2023 Hospital admission [facility] Start: 03-17-2023 Restriction of Abdominal Aorta with Intraluminal Device, Percutaneous Approach Restriction of Abdominal Aorta with Intraluminal Device, Percutaneous Approach [facility] Start: 09-14-2022 [facility] Start: 09-13-2022 Blood chemistry [facility] Start: 09-13-2022 [facility] Start: 09-12-2022 Physical therapy procedure [facility] Start: 09-12-2022 Referral to occupational therapist [facility] Start: 09-12-2022 Hospital admission [facility] Start: 09-12-2022 Referral to neurologist [facility] Start: 09-12-2022 [facility] Blood chemistry [facility] Dermatopathology exam Dermatopat hology exam Pathology and Cytology Timed Neoplasm of unspecified behavior of bone, soft tissue, and skin Release Upon Ordering for 1 Occurrences starting 12/28/2023 [facility] Work Phone: Comment on above: Release Upon Ordering for 1 Occurrences starting 12/28/2023 Patient Education [facility] Work Phone: Patient referral [facility] Work Phone: US Lower extremity a rtery - bilateral [facility] US Thoracic and abdo missy aorta [facility] Immunizations Immunization Date Immunization Notes Care Provider Brock wiggins 03-16-2024 influenza, high dose seasonal, preservative-free Aroldo Singh DO Work Phone: [facility] 03-16-2024 influenza virus vaccine, unspecified formulation Radha FORBES Work Phone: [facility] 03-01-2023 COVID-19 (PFIZER) 12Y and older DO Aroldo Ace Work Phone: [facility] 03-01-2023 Influenza, Seasonal, Quadrivalent, Adjuvanted Usha Hutson MD Work Phone: [facility] 03-01-2023 influenza virus vaccine, unspecified formulation Usha Hutson MD Work Phone: [facility] 10-31-2022 tetanus and diphther ia toxoids, adsorbed, preservative free, for adult use (5 Lf of tetanus toxoid and 2 Lf of diphtheria toxoid) Aroldo Ace Other [email or web address] Other 10-31-2022 tetanus and diphther ia toxoids, adsorbed, preservative free, for adult use (2 Lf of tetanus toxoid and 2 Lf of diphtheria toxoid) DO Aroldo Ace Work Phone: [facility] 05-22-2022 COVID-19 mRNA Bivale nt Booster (Pfizer) DO Aroldo Ace Work Phone: [facility] 05-22-2022 influenza virus vaccine, unspecified formulation DO Aroldo Ace Work Phone: [facility] 05-22-2022 Influenza, High-dose Seasonal, Quadrivalent, Preservative Free Usha Hutson MD Work Phone: [facility] 05-22-2022 influenza, high dose seasonal, preservative-free Aroldo Ace Other [email or web address] Other 02-26-2021 COVID-19 mRNA, Comirnaty (Pfizer) DO Aroldo Ace Work Phone: [facility] 06-28-2020 COVID-19 mRNA, Comirnaty (Pfizer) DO Aroldo Ace Work Phone: [facility] 06-07-2020 COVID-19 mRNA, Comirnaty (Pfizer) DO Aroldo Ace Work Phone: [facility] 03-15-2019 influenza virus vaccine, split virus (incl. purified surface antigen) Aroldo Ace Other [facility] [employer] Other 03-15-2019 influenza virus vaccine, unspecified formulation DO Aroldo Ace Work Phone: [facility] 03-15-2019 pneumococcal polysaccharide vaccine, 23 valent Aroldo Ace Other [facility] 05-16-2018 influenza, injectabl e, quadrivalent, contains preservative Usha Hutson MD Work Phone: [facility] 10-26-2017 pneumococcal conjuga te vaccine, 13 valent Aroldo Ace Other [facility] Payers Date Payer Category Payer Self-pay 2023 Medicare [id number] 2023 Private Health Insurance AARP [place] m[place] [id number] 2023 Unknown AARP AARP [id number] 2023-Present [address] [place] [address] [id number]. [id number] 2023 Medicare [id number] 2023 Unknown [id number] [id number] 2022 Blue Cross Blue Shield [id number] 2.16.840.1.216569.19 1959 Unknown [id number] 1945 Unknown [id number] 2.16.840.1.216483.3.579.2. 593 1945 Unknown [id number] 2.16.840.1.879523.3.579.2. 593 1945 Unknown [id number] 2.16.840.1.261463.3.579.2. 727 1945 Unknown [id number] 2.16.840.1.448706.3.579.2. 727 1945 Unknown [id number] 2.16.840.1.664850.3.579.2. 1259 1945 Unknown [id number] 2.16.840.1.195233.3.579.2. 1259 1945 Unknown [id number] 2.16.840.1.031906.3.579.2. 1259 1945 Unknown [id number] 2.16.840.1.181704.3.579.2. 1259 1945 Unknown [id number] 2.16.840.1.191401.3.579.2. 1259 1945 Unknown [id number] 2.16.840.1.570940.3.579.2. 1259 1945 Unknown [id number] 2.16.840.1.194234.3.579.2. 1259 1945 Unknown [id number] 2.16.840.1.349462.3.579.2. 1259 1945 Unknown [id number] 2.16.840.1.455627.3.579.2. 1259 Private Health Insurance [facility] [id number] Unknown [place] BC/BS [id number] Unknown [id number] 2.16.840.1.532590.3.579.2. 531 Unknown [id number] 2.16.840.1.325271.3.579.2. 531 Unknown [id number] 2.16.840.1.123406.3.579.2. 531 Unknown [id number] 2.16.840.1.924867.3.579.2. 531 Unknown [id number] 2.16.840.1.655001.3.579.2. 531 Unknown [id number] 2.16.840.1.906694.3.579.2. 531 Social History Date Type Detail Facility Start: 09-12-2022 Tobacco smoking stat us [facility] Never smoked tobacco (finding) [facility] Start: 1945 Sex Assigned At Male F [facility] Start: 09-13-2022 End: 05-23-2024 Tobacco smoking status NHIS Smoker (finding) [facility] Start: 09-12-2023 End: 12-20-2024 Sex Assigned At [facility] [employer] Other Start: 12-06-2023 End: 05-23-2024 Tobacco smoking status MIIS Smokes tobacco daily [facility] History of tobacco use Cigarette Smoker [facility] Start: 02-16-2024 End: 12-20-2024 Alcoholic beverage intake Current drinker of alcohol (finding) [facility] Start: 02-16-2024 End: 12-20-2024 Alcoholic beverage intake [facility] How often to you hav e a drink containing alcohol? 4 or more times a week [facility] How many standard drinks containing alcohol do you have on a typical day? 1 or 2 [facility] How often do you hav e 6 or more drinks on 1 occasion? Never [facility] Start: 12-06-2023 Tobacco Comment 1ppd [facility] Start: 1945 Sex assigned at Not on file [facility] Start: 05-12-2024 End: 06-30-2024 Sex Male (finding) [facility] Medical Equipment Procedure Code Equipment Code Equipment Origin al Text Equipment Identifier Dates Percutaneous endovascular repair of abdominal aortic aneurysm (AAA) Abdominal aorta endovascular stent-graft [id number] FDA Start: 03-17-2023 Percutaneous endovascular repair of abdominal aortic aneurysm (AAA) Abdominal aorta endovascular stent-graft ()[id number] FDA Start: 03-17-2023 Percutaneous endovascular repair of abdominal aortic aneurysm (AAA) Abdominal aorta endovascular stent-graft ()[id number] FDA Start: 03-17-2023 Percutaneous endovascular repair of abdominal aortic aneurysm (AAA) Soft-tissue/mesh anchor, non-bioabsorbable ()[id number] FDA Start: 03-17-2023 Goals Date Patient Goal Desired Activity /State Functional Status Date Assessment Result Facility 03-18-2023 Functional status Patient at Baseline [facility] Work Phone: 09-14-2022 Functional status Patient at Baseline [facility] Work Phone: Mental Status Date Assessment Result Facility 03-18-2023 Cognitive function Cognitive Sta tus Patient at Baseline [facility] Work Phone: 09-14-2022 Cognitive function Cognitive Sta tus Patient at Baseline [facility] Work Phone: Clinical Notes 09-12-2022 to 12-20-2024 Usha Hutson MD - 12/20/2024 11:15 AM aKthleen Hutson MD - 06/19/2024 9:45 AM EST Note Date & Type Note Facility 12-20-2024 History of Presen t illness Narrative Skin Check Location: Patient requests a skin examination from the waist up Dermatologic history: history of Actinic Keratosis, history of Basal Cell Carcinoma, history of Squamous Cell Carcinoma Last visit: 6 months ago Has used Efudex cream in the past. Follow up Diagnosis: Seborrheic Dermatitis Location: face Last visit: 6 months ago Symptoms: scaly Status: improving Current treatment: ciclopirox cream Lesions: Location: right forearm Duration: months Quality: denies pain Associated symptoms: red, rough Treatments: none Established patient All pertinent medical history, medications, and allergies were reviewed. General Exam: alert, oriented to person, place, and time, normal affect, well appearing Unaccompanied A complete skin exam was offered, pt declined. Areas not examined despite medical recommendation: From the waist down Scalp, Examined , exam limited by hair Head, Face Examined Neck Examined Chest Examined Back Examined Abdomen Examined Right arm Examined Left arm Examined Hands Examined Digits,nails: Examined Lymphatics: Not examined Skin Exam 1. SEBORRHEIC KERATOSIS Generalized Stuck on verrucous, nnues-brown papules and plaques. Patient was counseled regarding these benign growths. Removal is normally not necessary, but they may be removed if they are symptomatic or for cosmetic reasons. 2. LENTIGINES Generalized Scattered nunes macules in sun-exposed areas. The patient was informed that lentigines are benign pigmented lesions that occur on sun-exposed and sun-damaged skin. No treatment is necessary. Recommended regular use of broad spectrum sunscreen SPF 30 or higher 3. ACTINIC KERATOSIS (5) Head - Anterior (Face), Left Anterior Neck, Left [place], Right Anterior Neck, Right [place] Erythematous scaly papules Patient was counseled regarding these sun-induced growths that can develop into squamous cell carcinoma if left untreated. Discussed treatment options, including cryotherapy and topical preparations. It was emphasized that any treated lesions that fail to resolve should be re-evaluated. Patient elected for treatment with Efudex as this has become a chronic issue. Educated on Efudex treatment. Apply to neck, upper lip, ears, cheeks, and forearms twice a day for two weeks. Discussed that treated areas will become red, crusty, and inflamed. If areas become too uncomfortable, patient may use OTC hydrocortisone cream to help decrease irritation and can discontinue treatment early. Sun exposure should be avoided during treatment. Patient instructed to contact office for any questions or issues during treatment. Lesions that fail to resolve once treated area is healed should be re-evaluated in the office. Handout given to patient Related Medications fluorouracil (Efudex) 5 % cream Apply to directed areas on the neck, upper lip, behind ears, cheeks and forearms twice a day x 14 days. Dispense 30 day supply but only use for 14 days. 4. OTHER SEBORRHEIC DERMATITIS Head - Anterior (Face) Erythema and scale. Improving since last visit. Discussed that seborrheic dermatitis is a chronic condition that can be controlled but not cured. Continue ciclopirox cream every day to face. Notify office if flaring despite treatment. Related Medications ciclopirox (Loprox) 0.77 % cream Apply thin layer to face once a day, 30 day supply Next Visit: 6 months documented in this encounter [facility] 06-19-2024 History of Presen t illness Narrative Skin Check Location: Patient requests a skin examination from the waist up Dermatologic history: history of Actinic Keratosis, history of Basal Cell Carcinoma, history of Squamous Cell Carcinoma Last visit: 6 months ago Has used Efudex in the past. Established patient All pertinent medical history, medications, and allergies were reviewed. General Exam: alert, oriented to person, place, and time, normal affect, well appearing Unaccompanied A complete skin exam was offered, pt declined. Areas not examined despite medical recommendation: From the waist down Scalp, Examined , exam limited by hair Head, Face Examined Neck Examined Chest Examined Back Examined Abdomen Examined Right arm Examined Left arm Examined Hands Examined Digits,nails: Examined Lymphatics: Not examined 1. Other seborrheic dermatitis Head - Anterior (Face) Erythema and scale. Flaring today Discussed that seborrheic dermatitis is a chronic condition that can be controlled but not cured. Start ciclopirox cream every day to face. Notify office if flaring despite treatment. ciclopirox (Loprox) 0.77 % cream - Head - Anterior (Face) Apply thin layer to face once a day, 30 day supply 2. Actinic keratosis (13) Left Forearm - Posterior (3), Left Forehead (2), Left Hand - Posterior, Left Supraclavicular Area, Right Forearm - Anterior, Right Hand - Posterior, Right Nasal Sidewall, Right Supraclavicular Area, Right Nondenominational, Suprasternal Area Erythematous scaly papules Patient was counseled regarding these sun-induced growths that can develop into squamous cell carcinoma if left untreated. Discussed treatment with cryotherapy. It was emphasized that any treated lesions that fail to resolve should be re-evaluated. Cryotherapy performed today; see procedure note Diagnosis: Actinic keratosis Indication: Precancerous Location: see skin exam Consent: Verbal consent was obtained and risks were discussed, including, but not limited to risks of scarring, darker or book publisher pigmentary changes, recurrence, incomplete removal and infection. Method: Liquid nitrogen was used to treat the lesion(s) with two 5-10 second freeze-thaw cycles. Eyes were shielded using cotton pad during procedure Number of lesions treated: 13 Post-procedure instructions: Instructions were given orally and in writing. The office will be contacted if the lesion fails to resolve despite treatment, or if a side effect develops such as abnormal crusting, scabbing, redness or tenderness Cryotherapy, skin lesion - Left Forearm - Posterior (3), Left Forehead (2), Left Hand - Posterior, Left Supraclavicular Area, Right Forearm - Anterior, Right Hand - Posterior, Right Nasal Sidewall, Right Supraclavicular Area, Right Nondenominational, Suprasternal Area 3. Seborrheic keratosis Stuck on verrucous, nunes-brown papules and plaques. Patient was counseled regarding these benign growths. Removal is normally not necessary, but they may be removed if they are symptomatic or for cosmetic reasons. 4. History of basal cell carcinoma Right Upper Arm No evidence of recurrence at BCC scar. The patient was counseled that scars from excisional sites of nonmelanoma skin cancers should be monitored closely for recurrence. The patient was instructed to contact the office for any new, changing, or symptomatic moles. The patient was also instructed to contact the office for any new lesions that develop within or around the previous surgery scar. 5. Lentigines Scattered nunes macules in sun-exposed areas. The patient was informed that lentigines are benign pigmented lesions that occur on sun-exposed and sun-damaged skin. No treatment is necessary. Recommended regular use of broad spectrum sunscreen SPF 30 or higher 6. History of SCC (squamous cell carcinoma) of skin Mid Lower [place] Lip No evidence of recurrence at SCC scar. The patient was counseled that scars from excisional sites of nonmelanoma skin cancers should be monitored closely for recurrence. The patient was instructed to contact the office for any new, changing, or symptomatic moles. The patient was also instructed to contact the office for any new lesions that develop within or around the previous surgery scar. Next Visit: 6 months documented in this encounter [facility] 05-23-2024 Evaluation note Diagnosis Onset Date Resolution AAA (abdominal aortic aneurysm) acute May 23, 2024 10:26am Smoker acute May 23, 2024 10:26am AAA (abdominal aortic aneurysm) acute June 30, 2024 9:22am Chronic kidney disease acute Fe bruary 2024 9:22am Hypercholesterolemia acute ua2024 9:22am Hyperglycemia acute June 302024 9:22am Hypertension acute June 9:22am Nicotine addiction acute 2024 9:22am ALEX (obstructive sleep apnea) acute June 30, 2024 9:22am Pulmonary nodule acute June 30, 2024 9:22am 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 2023 acute June 30, 2024 9:22am [facility] Work Phone: 1(403) 540-218301-09-2025 [facility]iology [facility] [place] [address] [place] [address] CT Scan Report Signed Patient: Leigh Ann Kim MR#: [id number] : 1945 Acct:[id number] Age/Sex: 79 / M ADM Date: 5 Loc: CT Room: Type: [facility] Attending Dr: Johan Dawn MD Copies to: Johan Dawn MD~ Ordering Provider: Johan Dawn MD Date of Service: 05/11/24 CT/CT angio abdomen pelvis: I71.40 - Abdominal aorticaneurysm, without rupture, unsp... CTA abdomen and pelvis . CLINICAL DATA: Aneurysm follow-up. TECHNIQUE: Intravenous contrast-enhanced CT angiography of the abdomen and pelvis was then performed. Axial, sagittal, coronal and volume-rendered three- dimensional reconstructions were created and reviewed. This CT exam was performed using one or more of the following dose reduction techniques: Aut omated exposure control, adjustment of the mA and/or kV according to patient size, or use of iterative reconstruction technique. COMPARISON: CTA abdomen and pelvis 05/10/2023. FINDINGS: Lung Bases: Emphysematous changes with bibasilar scarring. Organs:Interval endovascular repair of a fusiform type infrarenal abdominal aortic aneurysm. The graft appears patent. The [place] aneurysmal sac to have decreased in size without CTA evidence of endoleak measuring 4.2 cm. No critical stenosis or occlusion is seen involving the major branch vessels of theabdominal aorta. Liver cysts. Gallbladder spleen pancreas and adrenal glands all appear unremarkable. No enhancing renal mass or hydronephrosis. GI: Stomach is grossly unremarkable. Small bowel appears nondilated. Appendix is normal. Left colondiverticulosis.[ Pelvis:[Urinary bladder is grossly unremarkable. Prostate gland is normal in size.] Peritoneum/Retroperitoneum:No free air, free fluid or lymphadenopathy.[ Abd wall/Bones:Abdominal wall demonstrates no acute findings. Osseous structures demonstrate degenerative change.[ CT/CT angio abdomen pelvis IMPRESSION: Endovascular repair of a fusiform type infrarenal abdominal aneurysm without evidence of complication such as endoleak. Impression dictated by: Dre Vázquez Jr., D.O.05/11/2024 2:48 PM Dictation Location: [place] [address] Transcribed By: [facility] 05/11/24 1448 Dictated By: Dre Vázquez Jr, DO 05/11/24 1443 Signed By: 05/11/24 1448 [facility]11-25-2024 History of Present illness Narrative * LEIDY Sanchez - 03/27/2024 8:20 AM EST Subjective Leigh Ann Kim is a 79 y.o. year old male Chief Complaint Patient presents with Altered Mental Status Past Medical History: Diagnosis Date Abnormal CT scan, head 12/02/2023 Actinic keratosis KARI (acute kidney injury) ([facility]) 12/02/2023 Angioma of skin 12/02/2023 Basal cell carcinoma Basal cell carcinoma (BCC) of lower lip 12/02/2023 Current smoker 12/02/2023 Added secondary to documentation in Social History. Hypercholesterolemia ([facility]) 01/05/2024 Hypersomnia 12/02/2023 Hypertension, uncontrolled ([facility]) 12/02/2023 Sleep disturbance 12/02/2023 Squamous cell cancer of skin of left jew 12/02/2023 Squamous cell carcinoma of skin of left upper limb, including shoulder 12/02/2023 Squamous cell carcinoma of skin of neck 12/02/2023 Squamous cell skin cancer Past Surgical History: Procedure Laterality Date ABDOMINAL AORTIC ANEURYSM REPAIR 2022 SQUAMOUS CELL CARCINOMA EXCISION Wide Excision SCC lower lip Family History Problem Relation Name Age of Onset Alzheimer's disease Mother Melanoma Neg Hx Social History Tobacco Use Smoking status: Every Day Types: Cigarettes Smokeless tobacco: Not on file Tobacco comments: 1ppd Substance Use Topics Alcohol use: Yes Alcohol/week: 4.0 standard drinks of alcohol Types: 4 Standard drinks or equivalent per week HPI AMS -denies any recent episodes of disorientation or confusion -sleeps well at night -averages 6-8 hours a night -denies any vivid dreams -wakes feeling rested -denies any hallucination -MOCA today , 0 on recall ROS Review of Systems Constitutional: Negative for activity change, appetite change, chills, diaphoresis, fatigue, fever and unexpected weight change. Respiratory: Negative for apnea, cough, choking, chest tightness, shortness of breath, wheezing andstridor. Cardiovascular: Negative for chest pain, palpitations and leg swelling. Gastrointestinal: Negative for abdominal distention, abdominal pain, anal bleeding, blood in stool,constipation, diarrhea, nausea, rectal pain and vomiting. Musculoskeletal: Negative for arthralgias, back pain, gait problem, joint swelling, myalgias, neck pain and neck stiffness. Neurological: Negative for dizziness, tremors, seizures, syncope, facial asymmetry, speech difficulty, weakness, light-headedness, numbness and headaches. Objective Visit Vitals BP 120/78 Pulse 72 Resp 16 Ht 5' 9 Wt 168 lb SpO2 94% BMI 24.81 kg/m Smoking Status Every Day BSA 1.93 m Neurological Exam Mental Status Awake, alert and oriented to person, place and time. Recent and remote memory are intact. Speech isnormal. Language is fluent with no aphasia. Attention and concentration are normal. Fund of knowledge is appropriate for level of education. Cranial Nerves CN II: Visual acuity is normal. Visual lemus full to confrontation. CN III, IV, : Extraocular movements intact bilaterally. Normal lids and orbits bilaterally. Pupils equal round and reactive to light bilaterally. CN V: Facial sensation is normal. CN VII: Full and symmetric facial movement. CN VIII: Hearing is normal. CN XI: Shoulder shrug strength is normal. Motor Normal muscle bulk throughout. Normal muscle tone. No abnormal involuntary movements. Gait Casual gait is normal including stance, stride, and arm swing. Motor Examination RUE Strength deltoid, biceps, triceps, wrist extensors, wrist extensors, wrist flexor, barrel drum cutter strength 5/5. LUE Strength deltoid, biceps, triceps, wrist extensors, wrist extensors, wrist flexor, barrel drum cutter strength 5/5. RLE Strength illopsoas, quadriceps, tibialis anterior, and gastrocnemius strength 5/5. LLE Strength illopsoas, quadriceps, tibialis anterior, and gastrocnemius strength 5/5. Tone Normal tone x4 extremities. Reflexes: RUE biceps reflex 3, brachioradialis reflex 3 LUE biceps reflex 3, brachioradialis reflex 3 RLE knee reflex 3, ankle reflex 3 LLE knee reflex 3, ankle reflex 3 Assessment and Plan Diagnoses and all orders for this visit: Transient alteration of awareness Ventriculomegaly of brain, congenital (CMS/HCC) Patient was seen at [facility] 09/15/2022 for altered mental status where he became confused and lost while driving. He also was experiencing unsteady gait and excessive sleepiness prior to this. Patient has history of tobacco use and drinking beer daily. Head CT revealed ventriculomegaly and concern for NPH although patient was not experiencing true dementia, odd behavior, incontinence of bladder, and did not exhibit ataxic/magnetic gait. Repeat head CT and serial examinations recommended outpatient and complete dementia work up. He did have hypertensive urgency and symptoms were attributed to hypertensive encephalopathy. He was further evaluated with routine EEG, neuropsychology evaluation, brain MRI that were unremarkable. Sleep study revealed ALEX but he is not compliant with CPAP, as he did not tolerate. I discussed alternative masks that can be used, but he wishes not to resume CPAP. I discussed risks of untreated ALEX. He remains stable without recurrent episodes or worsening memory. Hyper reflexia He was found to have hyper reflexia on exam. Cervical spine MRI 07/13/2023 revealed no cord compression or cord signal abnormality. MOCA 03/27/2024: with 0/5 recall 06/23/2023: 10/06/2022: Cervical spine MRI 07/13/2023: revealed no cord compression or cord signal abnormality. There were degenerative changes throughout with varying degrees of neural foraminal narrowing and spinal canal narrowing. There was moderate spinal canal narrowing at C4-C5 and C5-C6. Blood work: Vitamin B12 280, Folate 10.3, TSH 1.43. Routine EEG 10/08/2022: normal. Neuropsychology 11/24/2022: revealed well preserved cognition and memory with no evidence of impairment, and no activity restrictions from a cognitive standpoint. Brain MRI 12/03/2022: revealed no evidence of CVA or TIA, no acute intracranial pathology. Sleep study: revealed ALEX but he is not compliant with CPAP, as he did not tolerate. Testing review from [facility] 09/15/2022: Head CT: revealed ventriculomegaly and concern for NPH PLAN I will obtain a head CT to monitor previously noted ventriculomegaly and concern for NPH with priorhead CT MOCA today and reviewed with patient. Consider Inspire device pending course for ALEX Patient can follow up in 2-3 months to review head CT documented in this encounterSaint Francis Medical [id number] History of Present illness Narrative* Usha Hutson MD - 03/01/2024 9:00 AM EDT Images from the original note were not included. Subjective Leigh Ann Kim is a 79 y.o. male who presents for the following: Excision. Location: Right upper arm Date of biopsy: 12/28/2023 Diagnosis: Nodular basal cell carcinoma Lesions: Location: arms, neck, arms Duration: months Quality: denies pain, denies itch Associated symptoms: rough, raised Treatments: none Pre-Op Checklist: History of pacemaker/defibrillator: No History of joint replacement in the past 2 years: No History of HIV/Hepatitis B/Hepatitis C: No Latex allergy: No Is the patient currently on a blood thinner? No. . All pertinent medical history, medications, and allergies were reviewed. Surgical assistants: Maylin Monaco CMA Objective Well appearing patient in no apparent distress; mood and affect are within normal limits. 1. Basal cell carcinoma of skin of right upper limb, including shoulder Right upper arm Erythematous macule at biopsy site. Destr of lesion Complexity: simple Destruction method: cryotherapy Informed consent: discussed and consent obtained Informed consent comment: The risks of the procedure were discussed, including, but not limited to risks of scarring, darker or book publisher pigmentary changes, recurrence, infection, and incomplete removal Timeout: patient name, date of , surgical site, and procedure verified Timeout comment: Patient and provider identified site. Site was marked. Photo was taken and shown to patient, patient verified this is the correct site. Lesion destroyed using liquid nitrogen: Yes Region frozen until ice ball extended beyond lesion: Yes Cryotherapy cycles: 2 Lesion length (cm): 0.7 Lesion width (cm): 0.6 Margin per side (cm): 0 Final wound size (cm): 0.7 Outcome: patient tolerated procedure well with no complications Post-procedure details: wound care instructions given Post-procedure details comment: Post-cryotherapy instructions were given verbally and in writing. The office will be contacted if the lesion fails to resolve despite treatment, or if a side effect develops such as abnormal crusting, scabbing, reddness, discharge, or tenderness. Additional details: Previous accession number: [id number] Treatment options reviewed with patient, benefits and efficacy of excision vs cryotherapy discussed. Patient prefers cryotherapy today, instructed patient to contact the office for any new lesions that bleed, grow in size, or are not healing or any evidence of recurrence at site. 6 month skin exam recommended. 2. Actinic keratosis (11) Left Anterior Neck, Left Forearm - Posterior, Left Postauricular Area, Left Superior [place] of Antihelix, Left Upper Arm - Posterior, Right Anterior Mandible, Right Anterior Neck, Right Forehead, RightPostauricular Area (2), Right Posterior Mandible Erythematous scaly papules Patient was counseled regarding these sun-induced growths that can develop into squamous cell carcinoma if left untreated. Discussed treatment with cryotherapy. It was emphasized that any treated lesions that fail to resolve should be re- evaluated. Cryotherapy performed today; see procedure note Diagnosis: Actinic keratosis Indication: Precancerous Location: see skin exam Consent: Verbal consent was obtained and risks were discussed, including, but not limited to risks of scarring, darker or book publisher pigmentary changes, recurrence, incomplete removal and infection. Method: Liquid nitrogen was used to treat the lesion(s) with two 5-10 second freeze-thaw cycles. Number of lesions treated: 11 Post-procedure instructions: Instructions were given orally and in writing. The office will be contacted if the lesion fails to resolve despite treatment, or if a side effect develops such as abnormal crusting, scabbing, redness or tenderness Cryotherapy, skin lesion - Left Anterior Neck, Left Forearm - Posterior, Left Postauricular Area, Left Superior [place] of Antihelix, Left Upper Arm - Posterior, Right Anterior Mandible, Right Anterior Neck, Right Forehead, Right Postauricular Area (2), Right Posterior Mandible Follow up: 6 months skin check documented in this encounterSaint Francis Medical [id number] History of Present illness Narrative* Aroldo Singh, - 02/16/2024 1:15 PM EDT HPI Patient presents today for recheck. He is status post excision of a squamous cell carcinoma lower lip with bilateral rotation flap reconstruction. Continues to do very well. Relevant postoperative physical examination Examination shows everything is well healed, patient is orally competent. Nothing suspicious for recurrence. He very satisfied with the results. Assessment/plan Leigh Ann was seen today for post-op. Diagnoses and all orders for this visit: Lip cancer (Primary) Comments: I will see the patient back in 3 months documented in this encounterSaint Francis Medical [id number] History of Present illness Narrative* Aroldo Singh DO - 01/05/2024 1:45 PM EDT HPI Patient presents today 3 weeks postop wide excision of a lower lip squamous cell carcinoma with flap repair. He is doing very well. Relevant postoperative physical examination Examination shows the flaps were settling down very nicely, he is orally competent and able to wearhis dentures. Assessment/plan Leigh Ann was seen today for post-op. Diagnoses and all orders for this visit: Cancer of the lip, oral cavity, and pharynx (CMS/HCC) (Primary) Comments: Patient doing very well postoperatively, I have advised him to massage the area of the flaps. I will see him back in a month documented in this [facility]08-27-2024 History of Present illness Narrative* Usha Hutson MD - 12/28/2023 9:35 AM EDT Images from the original note were not included. Skin Check Location: Patient requests a skin examination from the waist up Dermatologic history: history of Actinic Keratosis, history of Basal Cell Carcinoma, history of Squamous Cell Carcinoma Last visit: 6 months ago Established patient All pertinent medical history, medications, and allergies were reviewed. General Exam: alert , oriented to person, place, and time , normal affect, well appearing Accompanied by spouse A complete skin exam was offered, pt declined. Areas not examined despite medical recommendation: From the waist down Scalp, Examined Head, Face Examined Neck Examined Chest Examined Back Examined Abdomen Examined Right arm Examined Left arm Examined Hands Examined Digits,nails: Examined Lymphatics: Not examined 1. Lentigines (6) Chest (Upper Torso, Anterior), Head, Left Arm, Neck, Right Arm, Torso - Posterior (Back) Scattered nunes macules in sun-exposed areas. The patient was informed that lentigines are benign pigmented lesions that occur on sun-exposed andsun-damaged skin. No treatment is necessary. Recommended regular use of broad spectrum sunscreen SPF 30 or higher 2. Actinic keratosis (5) Left Anterior Neck, Left Supraclavicular Area, Posterior Mid Neck, Right Anterior Neck, Right Inferior [place] Erythematous scaly papules Patient was counseled regarding these sun-induced growths that can develop into squamous cell carcinoma if left untreated. Discussed treatment with cryotherapy. It was emphasized that any treated lesions that fail to resolve should be re- evaluated. Cryotherapy performed today; see procedure note Diagnosis: Actinic keratosis Indication: Precancerous Location: see skin exam Consent: Verbal consent was obtained and risks were discussed, including, but not limited to risks of scarring, darker or book publisher pigmentary changes, recurrence, incomplete removal and infection. Method: Liquid nitrogen was used to treat the lesion(s) with two 5-10 second freeze-thaw cycles. Eyes were shielded using cotton pad during procedure Number of lesions treated: 5 Post-procedure instructions: Instructions were given orally and in writing. The office will be contacted if the lesion fails to resolve despite treatment, or if a side effect develops such as abnormal crusting, scabbing, redness or tenderness Cryotherapy, skin lesion - Left Anterior Neck, Left Supraclavicular Area, Posterior Mid Neck, RightAnterior Neck, Right Inferior [place] 3. Seborrheic keratosis Stuck on verrucous, nunes-brown papules and plaques. Patient was counseled regarding these benign growths. Removal is normally not necessary, but they may be removed if they are symptomatic or for cosmetic reasons. 4. Neoplasm of unspecified behavior of bone, soft tissue, and skin Right Upper Arm Hyperkeratotic papule Lesion biopsy Type of biopsy: tangential Informed consent: discussed and consent obtained Informed consent comment: The risks and benefits of the biopsy were discussed. Risks include but are not limited to bleeding, infection, scarring, pain, and nerve damage. An opportunity to ask questions prior to the procedure was permitted and all questions were answered. Patient was prepped and draped in usual sterile fashion: area cleansed with alcohol. Anesthesia: the lesion was anesthetized in a standard fashion Anesthetic: 1% lidocaine w/ epinephrine 1-100,000 buffered w/ 8.4% NaHCO3 Instrument used: DermaBlade Hemostasis achieved with: electrodesiccation Outcome: patient tolerated procedure well Outcome comment: The specimen was placed in a prelabeled formalin container to be sent for pathology Post-procedure details: sterile dressing applied and wound care instructions given Post-procedure details comment: Emphasized need to contact clinic for any signs of infection, uncontrollable bleeding, or complications. Dressing type: bandage Additional details: Photo taken yes Amount of lidocaine used: 1.0 cc Next Visit: pending biopsy results documented in this encounterSaint Francis Medical [id number] History of Present illness Narrative* Aroldo Singh, DO - 05/17/2024 2:00 PM EST Subjective Patient ID: HPI Patient presents today for follow-up. 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 He is doing very well. Review of Systems ROS The specialty specific review of systems is noncontributory except for that recorded in the intake questionnaire and /or described in the history of present illness. Objective ENT Physical Exam Physical Exam Constitutional: Appearance: Normal appearance. HENT: Head: Atraumatic. Ears: External ear shows no abnormality Bilateral ear canals are clear Tympanic membranes intact, no evidence of middle ear fluid or other pathology. Nose: External nose appears to be normal Nares patent. Septal deviation to the right No evidence of polyp, mass or pus bilaterally. Oral Cavity: No evidence of trismus Lips appear normal Dental good Tongue of normal size and configuration, floor of mouth mucosa clear. Buccal mucosa shows no evidence of ulceration, mass or other abnormality Hard palate soft palate mucosa intact with no evidence of mass, ulceration or other abnormality Uvula of normal size and configuration Examination of the lip shows oral competence, nothing suggestive of recurrent tumor. Flaps are wellhealed. Oropharynx: Tonsils Posterior pharyngeal wall Neck: No evidence of palpable abnormality Thyroid without evidence of thyromegaly or mass. No cervical lymphadenopathy present. Cardiovascular: Rate and Rhythm: Normal rate and regular rhythm. . Skin: General: Skin is warm and dry. Neurological: General: No focal deficit present. Mental Status: alert and oriented to person, place, and time. Assessment/Plan Leigh Ann was seen today for cancer. 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 He is cautioned to let me know immediately if he develops any type of nonhealing sore in the area documented in this encounterSaint Francis Medical [id number] History of Present illness Narrative* Aroldo Singh DO - 05/17/2024 2:00 PM EST Subjective Patient ID: HPI Patient presents today for follow-up. 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 He is doing very well. Review of Systems ROS The specialty specific review of systems is noncontributory except for that recorded in the intake questionnaire and /or described in the history of present illness. Objective ENT Physical Exam Physical Exam Constitutional: Appearance: Normal appearance. HENT: Head: Atraumatic. Ears: External ear shows no abnormality Bilateral ear canals are clear Tympanic membranes intact, no evidence of middle ear fluid or other pathology. Nose: External nose appears to be normal Nares patent. Septal deviation to the right No evidence of polyp, mass or pus bilaterally. Oral Cavity: No evidence of trismus Lips appear normal Dental good Tongue of normal size and configuration, floor of mouth mucosa clear. Buccal mucosa shows no evidence of ulceration, mass or other abnormality Hard palate soft palate mucosa intact with no evidence of mass, ulceration or other abnormality Uvula of normal size and configuration Examination of the lip shows oral competence, nothing suggestive of recurrent tumor. Flaps are wellhealed. Oropharynx: Tonsils Posterior pharyngeal wall Neck: No evidence of palpable abnormality Thyroid without evidence of thyromegaly or mass. No cervical lymphadenopathy present. Cardiovascular: Rate and Rhythm: Normal rate and regular rhythm. . Skin: General: Skin is warm and dry. Neurological: General: No focal deficit present. Mental Status: alert and oriented to person, place, and time. Assessment/Plan Leigh Ann was seen today for cancer. 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 He is cautioned to let me know immediately if he develops any type of nonhealing sore in the area documented in this encounterSaint Francis Medical [id number] Evaluation note* Encounter Date Diagnosis Assessment Notes Treatment Notes Treatment Clinical Notes May, Infrarenal abdominal aortic aneurysm (AAA) without rupture (ICD-10 - I71.43) May, Other Abdominal aorti c aneurysm status post endovascular aneurysm repair Excellent outcome to date. Will follow him up in [address] scan after which hopefully he can go to ultrasound follow-up [email or web address] Other 01-03-2024 Evaluation note* Encounter Date Diagnosis Assessment Notes Treatment Notes Treatment Clinical Notes May, Primary hypertension (ICD-10 - I10) This patient is instructed to consume a healthy, low-fat, low-salt diet. They are also encouraged to continue exercise to achieve/maintain a normal BMI. May, Stage 3a chronic kid jordan disease (ICD-10 - N18.31) The patient is instructed on adequate control of hypertension and diabetes, if appropriate. They are also educated on the associated risks of NSAIDs and PPI use with kidney disease. They were instructed on adequate fluid balance and to avoid dehydration. May, Hypercholesterolemia (ICD-10 - E78.00) Instructed on diet and exercise with continued statin therapy.Discussed the beneficial effects of lowering cholesterol in reducing the risk for cerebrovascular and cardiovascular disease. May, ALEX (obstructive sle ep apnea) (ICD-10 - G47.33) This patient is aware of the benefits associated with ALEX: With continued use, the patient reduces the risk for AL, CVA, HTN, cardiac dysrhythmias and sudden cardiac deaths.The patient is also aware of the association between ALEX and morning headaches, daytime somnolence, fatigue and obesity, which also has been improved with continued use.The patient is compliant with treatment, wearing the equipment every night for greater than 4 hours.The patient is instructed to continue use of the CPAP for ALEX treatment. May, Infrarenal abdominal aortic aneurysm (AAA) without rupture (ICD-10 - I71.43) s/p endovascular repair. No complications Continue ASA and Statin therapy f/u Vascular Surgery May, Lung nodule (ICD-10 - R91.1) Stable 7.9mm nodule since 2020 Stable for > 2 years, no further surveillance scans necessary. Instructed on smoking cessation May, Cigarette nicotine dependence without complication (ICD-10 - F17.210) LDCT w/o suspicious nodules: 01/2023 This patient has been encouraged to quit tobacco use immediately. They are aware of the hazards associated with tobacco use, including but not limited to respiratory infections, vascular disease and cancers. 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) May, Folic acid deficienc y (ICD-10 - E53.8) Continue supplement, recheck at [facility] [email or web address] Other 01-03-2024 History general Narrative - Reported* Type Description Date Medical History Hypercholesterolemia Medical History Benign prostatic hyp erplasia with lower urinary tract symptoms Medical History Chronic kidney disease, stage 3a Medical History Cigarette nicotine dependence [facility] complication Medical History Lung nodule Medical History Current tobacco use Medical History [ ] Surgical History colonoscopy 01/2019 Surgical History Percutaneous endovascular aneur ysm repair 03/2023 Hospitalization History see surgical history [email or web address] Other 12-18-2023 Evaluation note* Encounter Date Diagnosis Assessment Notes Treatment Notes Treatment Clinical Notes Apr, Abdominal aortic aneurysm (AAA) without rupture, unspecified part (ICD-10 - I71.40) Patient has gotten along well after his endovascular aneurysm repair about a month ago. He has no abdominal symptoms, has a good appetite, and denies any vasculogenic claudication. We will get him set up for his [address] of the abdomen pelvis to evaluate his repair. We will check a BUN and creatinine prior to his CT as he does have a tendency to have elevated BUN and creatinine. He verbalizes understanding of all discussion today, agrees with this plan, denies any questions. [email or web address] Other 12-08-2023 History general Narrative - Reported* Type Description Date Medical History Hypercholesterolemia Medical History Benign prostatic hyp erplasia with lower urinary tract symptoms Medical History Chronic kidney disease, stage 3a Medical History Cigarette nicotine dependence [facility] complication Medical History Lung nodule Medical History Current tobacco use Medical History [ ] Surgical History colonoscopy 01/2019 Surgical History Percutaneous endovascular aneur ysm repair 03/2023 Hospitalization History see surgical history [email or web address] Other 12-07-2023 Evaluation note* Encounter Date Diagnosis Assessment Notes Treatment Notes Treatment Clinical Notes 07 Dec, 2023 Hypercholesterolemia (ICD-10 - E78.00) [email or web address] Other 10-30-2023 Evaluation note* Encounter Date Diagnosis Assessment Notes Treatment Notes Treatment Clinical Notes Jan, Infrarenal abdominal aortic aneurysm (AAA) without rupture (ICD-10 - I71.43) Jan, Other 5.5 cm infraren al abdominal aortic aneurysm Patient and his were shown a aortic stent. Nature of the procedure was described to them in detail and we reviewed the CT images together. Indication for repair as well as risks were discussed. They agree to proceed. [email or web address] Other 10-30-2023 History general Narrative - Reported* Type Description Date Medical History Hypercholesterolemia Medical History Benign prostatic hyp erplasia with lower urinary tract symptoms Medical History Chronic kidney disease, stage 3a Medical History Cigarette nicotine dependence [facility] complication Medical History Lung nodule Medical History Current tobacco use Medical History [ ] Surgical History colonoscopy 01/2019 Surgical History [ ] Hospitalization History see surgical history [email or web address] Other 09-18-2023 Evaluation note* Encounter Date Diagnosis Assessment Notes Treatment Notes Treatment Clinical Notes Jan, Primary hypertension (ICD-10 - I10) This patient is instructed to consume a healthy, low-fat, low-salt diet. They are also encouraged to continue exercise to achieve/maintain a normal BMI. Jan, Infrarenal abdominal aortic aneurysm (AAA) without rupture (ICD-10 - I71.43) Continue strict control of BP Continue Statin and ASA therapy Counseled on smoking cessation. Refer to Vascular surgery Jan, Hypercholesterolemia (ICD-10 - E78.00) Instructed on diet and exercise with continued statin therapy.Discussed the beneficial effects of lowering cholesterol in reducing the risk for cerebrovascular and cardiovascular disease. 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 They are also educated on the associated risks of NSAIDs and PPI use with kidney disease. They were instructed on adequate fluid balance and to avoid dehydration. Jan, Cigarette nicotine dependence without complication (ICD-10 - F17.210) LDCT w/o suspicious nodules: 01/2023 This patient has been encouraged to quit tobacco use immediately. They are aware of the hazards associated with tobacco use, including but not limited to respiratory infections, vascular disease and cancers. [email or web address] Other 09-14-2023 History general Narrative - Reported* Type Description Date Medical History Hypercholesterolemia Medical History Benign prostatic hyp erplasia with lower urinary tract symptoms Medical History Chronic kidney disease, stage 3a Medical History Cigarette nicotine dependence wi thout complication Medical History Lung nodule Medical History Current tobacco use Surgical History colonoscopy 01/2019 Hospitalization History see surgical history [email or web address] Other 09-09-2023 History general Narrative - Reported* Type Description Date Medical History Hypercholesterolemia Medical History Benign prostatic hyp erplasia with lower urinary tract symptoms Medical History Chronic kidney disease, stage 3a Medical History Cigarette nicotine dependence wi thout complication Medical History Lung nodule Medical History Current tobacco use Surgical History colonoscopy 01/2019 Hospitalization History see surgical history [email or web address] Other 09-08-2023 History general Narrative - Reported* Type Description Date Medical History Hypercholesterolemia Medical History Benign prostatic hyp erplasia with lower urinary tract symptoms Medical History Chronic kidney disease, stage 3a Medical History Cigarette nicotine dependence wi thout complication Medical History Lung nodule Medical History Current tobacco use Surgical History colonoscopy 01/2019 Hospitalization History see surgical history [email or web address] Other 09-06-2023 Evaluation note* Encounter Date Diagnosis Assessment Notes Treatment Notes Treatment Clinical Notes Jan, Stage 3b chronic kidney disease (ICD-10 - N18.32) [email or web address] Other 08-24-2023 Evaluation note* Encounter Date Diagnosis Assessment Notes Treatment Notes Treatment Clinical Notes Dec, Wellness examination (ICD-10 - Z00.00) Healthy diet and exercise. Reviewed age-appropriate preventive testing recommended. Dec, Chronic kidney disea se, stage 3a (ICD-10 - N18.31) The patient is instructed on adequate control of hypertension and diabetes, if appropriate. They are also educated on the associated risks of NSAIDs and PPI use with kidney disease. They were instructed on adequate fluid balance and to avoid dehydration. Dec, Hypercholesterolemia (ICD-10 - E78.00) Instructed on diet and exercise.Discussed the beneficial effects of lowering cholesterol in reducing the risk for cerebrovascular and cardiovascular disease. Dec, Primary hypertension (ICD-10 - I10) This patient is instructed to consume a healthy, low-fat, low-salt diet. They are also encouraged to continue exercise to achieve/maintain a normal BMI. Dec, Benign prostatic hyperplasia with lower urinary tract symptoms (ICD-10 - N40.1) Symptoms tolerable. Yearly PSA Dec, Cigarette nicotine dependence without complication (ICD-10 - F17.210) LDCT w/o suspicious nodules: 01/2023 This patient has been encouraged to quit tobacco use immediately. They are aware of the hazards associated with tobacco use, including but not limited to respiratory infections, vascular disease and cancers. 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 His uvula is edematous and palate is dependent. Cannot rule out the presence of sleep apnea. His insurance requires home sleep testing which will be ordered. He is continuing to follow with his neurologist and primary provider Oct, Sleep related hypoxia (ICD-10 - G47.34) Nocturnal hypoxia was demonstrated during his hospitalization, and polysomnography was requested. His insurance requires home sleep testing which will be ordered. Hypoxia and sleep can be seen with apneic events, and sleep hypoxia can be seen with pulmonary disease as well. 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 He is encouraged to discontinue cigarettes, and complications were discussed Oct, Acute confusional state (ICD-10 - F05) She was admitted for an acute confusional state, and had clinical history suggesting intermittent ongoing confusion. He continues to follow with neurology [email or web address] Other 07-19-2023 History general Narrative - Reported* Type Description Date Medical History Hypercholesterolemia Medical History Benign prostatic hyp erplasia with lower urinary tract symptoms Medical History Chronic kidney disease, stage 3a Medical History Cigarette nicotine dependence wi thout complication Medical History Lung nodule Medical History Current tobacco use Surgical History colonoscopy 01/2019 Hospitalization History see surgical history [email or web address] Other 07-18-2023 Evaluation note* Encounter Date Diagnosis Assessment Notes Treatment Notes Treatment Clinical Notes Oct, Laceration of left thumb without foreign body without damage to nail, subsequent encounter (ICD-10 - S61.012D) Keep clean and dry Removed final suture. Protect during daytime w/ bandaid, open at night Oct, Cellulitis of finger of left hand (ICD-10 - L03.012) Continue to soak in warm water. Mupirocin bid Finish Doxycycline Much improved, call if increased drainage, pain or swelling after stopping antibiotics [email or web address] Other 07-12-2023 Evaluation note* Encounter Date Diagnosis Assessment Notes Treatment Notes Treatment Clinical Notes Oct, Laceration of left thumb without foreign body without damage to nail, subsequent encounter (ICD-10 - S61.012D) Keep clean, dry and protected UTD w/ tetanus Oct, Cellulitis of finger of left hand (ICD-10 - L03.012) Soak in warm/soapy water, swish in water for 5 minutes daily. Continue antibiotics Recheck in week Sutures removed [email or web address] Other 07-12-2023 History general Narrative - Reported* Type Description Date Medical History Hypercholesterolemia Medical History Benign prostatic hyp erplasia with lower urinary tract symptoms Medical History Chronic kidney disease, stage 3a Medical History Cigarette nicotine dependence wi thout complication Medical History Lung nodule Medical History Current tobacco use Surgical History colonoscopy 01/2019 Hospitalization History see surgical history [email or web address] Other 05-14-2023 Progress note Author Justin Garcia [facility] September 13, 2022 3:31pm Note Date/Time September 13, 2022 11:28 am [facility] [address] [place] [address] Hospitalist Progress Note Signed Patient: Leigh Ann Kim MR#: [id number] : 1945 Acct:[id number] Age/Sex: 77 / M Adm Date: 3 Loc: 3T Room: [address] [place] [address] Type: ADM INOo Attending Dr: Justin Garcia MD Copies to: ~ Date of Service: 09/13/2022 Subjective Subjective Narrative: Patient seen and examined, he is up in chair. Offers no complaints. Does not feel confused. Continues on IVF. Good intake reported. and daughter are present in room. Exam Physical Exam Vital Signs: Temp Pulse Resp BP Pulse Ox O2 Del Method 98.3 F 96 H 14 158/75 H 96 Room Air 09/13/22 07:20 09/13/22 07:20 09/13/22 07:20 09/13/22 08:17 09/13/22 07:20 09/13/22 07:53 Narrative: CONST- alert, in chair, no distress at rest CARD- RRR no abnormal heart tones PULM- dimin without wheeze or rhonchi, RA ABD- S/NT, NABS, thin EXTREM- no edema BLE, calves nontender Objective Lab Results 09/12/22 17:14 09/13/22 05:20 Meds Allergies and Active Meds Allergies No Known Allergies Allergy (Verified 09/12/22 17:39) Active Meds: Active Medications Generic Name Dose Route Start Last Admin Trade Name Freq PRN Reason Stop Dose Admin Acetaminophen 650 mg 09/12/22 19:11 Acetaminophen 325 Mg Tablet PO 09/12/23 19:10 Q6HR PRN Pain Scale 1 - 3 or fever Heparin Sodium (Porcine) 5,000 unit 09/12/22 21:00 09/13/22 09:09 Heparin 5,000 Unit/Ml Vial SUBCUT 09/12/23 20:59 5,000 unit Q12HR TRESA Administration Hydralazine HCl 10 mg 09/12/22 19:11 09/13/22 07:25 Hydralazine 20 Mg/Ml Vial IV-PUSH 09/12/23 19:10 10 mg Q4H PRN Administration Hypertension Lactated Ringer's 1,000 mls @ 75 mls/hr 09/12/22 19:15 09/12/22 20:58 Lactated Ringers IV 09/12/23 19:14 75 mls/hr .[id number] TRESA Administration Labetalol HCl 5 mg 09/12/22 19:11 Labetalol 100 Mg/20 Ml Vial IV-PUSH 09/12/23 19:10 Q4H PRN Hypertension A&P - Hospitalist Assessment/Plan (1) Hypertension, uncontrolled: (2) Abnormal CT scan, head: (3) Transient confusion: (4) KARI (acute kidney injury): Plan Encephalopathy -CT with concern for ventriculomegaly possible NPH -neurology consult appreciated -further outpatient workup as documented - recommendation for outpatient polysomnogram with fatigue/ tiredness lately, outpatient dementia workup, outpatient monitoring with serial CT for ventriculomegaly -cannot exclude confusion as hypertensive encephalopathy along with KARI -will check nocturnal pulse oximetry study before discharge -B12 is lower norm will supplement Uncontrolled HTN -no prior history on no chronic medications -Amlodipine initiated KARI -trend labs, improving with IVF, baseline renal function unclear -patient denies symptoms of nocturia or history/ symptoms of prostate enlargement. Will check Post Void Residual DISCHARGE planning- anticipate DC Wednesday if improvement in BP control, toleranceof amlodipine initiated, nocturnal pulse oximetry addressed, improved renal function. Therapy recommendations home Documented By: CARLENE Saul 3 [id number] Signed By: <Electronically signed by ANP-DELIA Gomez> 09/13/22 1411 <Electronically signed by Justin Garcia MD> 09/13/22 1531 [facility] Work Phone: 1(495) 719-873705-14-2023 Consult note Author Janeth Reyes [facility] September 13, 2022 12:32pm Note Date/Time September 13, 2022 11:20 am [facility] [address] [place] [address] Neurology Consult Note Signed Patient: Leigh Ann Kim MR#: [id number] : 1945 Acct:[id number] Age/Sex: 77 / M Adm Date: 3 Loc: Room: [address] [place] [address] Type: ADM INOo Attending Dr: Justin Garcia MD Copies to: DO Justin Coronel MD Nicole J Danner, DO~ HPI Consult Date: 09/13/22 Jewel Bearing Turner: Janeth Reyes DO Reason for consult: AMS Consult Narrative HPI: 77-year-old male being seen in Neurology consultation at the request of the hospital for altered mental status. He was admitted to the hospital for alteredmental status. 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 Apparently the road was blocked and when he tried to read navigate he got lost and had difficulty finding his way. Patient does smoke daily and has a extensive history of tobacco abuse. He also drinks beer every day after work. His reported that he has been off since the winter and hasbeen having some confusion and some unsteady gait and sleeping excessively. 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 He could not get through the normal exit and he could not figure out how to get out. Ohters noticed this and then stopped him. The co-workers felt he was confused and something was off so they sent him to the ED via squad. By the time got here he was sleepy but recognized her. HE seems normal today and better then yesterday. He did nto realize that he was confused but he knew he was having a hard time navigating states when he left for work yesterday and he tired. He did not eat. He ended up eating 1/2 sandwich and piece of pie. 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 He will get home from work 9;30-1 am butan average of 10:30. Typically goes to bed around 11-11:30 and gets up around 8. When he gets up at 8 he most of the time feels rested. 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 HE doessnore and can snort sometimes. will nudge him at night and he rolls over and he is fine. He has not had any other spells of confusion. states that he has not been himself He looks tired. Late mateo he was sitting around more than normal. Some they attributed to age. He has not been eating as much. does not think he has had any memory loss that is significant. NO other new medicatal issues. He has one beer a day when he is off of work. He does drive 6 days a week. He has not had any bizzaire behaviors. No mood issues. He has felt a litte off balance once in while. He has not had any yareli. He does not have a Hx of diabetes. He goes to the doctor once every two years. When has been with him he has driven without any issues. Review of Systems Constitutional Constitutional: Denies chills and Denies fever(s) Eyes Eyes: Denies blurry vision and Denies diplopia ENT Ears, Nose, Mouth, and Throat: Denies nasal congestion and Denies nasal discharge Cardiovascular Cardiovascular: Denies chest pain and Denies palpitations Respiratory Respiratory: Denies cough and Denies dyspnea Genitourinary Genitourinary: Denies dysuria and Denies hematuria Musculoskeletal Musculoskeletal: Denies numbness and Denies tingling Integumentary/Breasts Skin/Breast: Denies new lesions and Denies rash Neurologic Neurologic: Denies headache(s), Denies tingling and Denies weakness PMFSH Vaccinated for COVID-19?: Yes Medical History (Updated 09/13/22 @ 12:26 by Janeth Reyes DO) No pertinent past medical history Surgical History No pertinent past surgical history Social History Smoking Status: Current every day smoker Tobacco Type: cigarettes Substance Use Type: None Social History Comments: tob 1 1/2 ppd Etoh 1 beer per day vaping No marijuana no mother dec Alz dz ?late 80s father dec 90s old age Meds Medications and Allergies Allergies No Known Allergies Allergy (Verified 09/12/22 17:39) Home Medications No known home meds 09/12/22 [History Confirmed 09/12/22] Exam Physical Exam Vital Signs: Temp Pulse Resp BP Pulse Ox O2 Del Method 98.3 F 96 H 14 158/75 H 96 Room Air 09/13/22 07:20 09/13/22 07:20 09/13/22 07:20 09/13/22 08:17 09/13/22 07:20 09/13/22 07:53 Narrative: Patient is sitting in the chair no apparent distress daughter and are in the room who helps supplement the history Patient is alert and oriented x3, he does have some difficulty spelling the wordworld backwards but not forward, he has no other signs of confusion and hold on good conversation that is correct and supported by . Speech is clear and fluent no aphasias or dysarthria is Cranial nerves II through XII pupils were equal reactive to light accommodation bilaterally extraocular muscles are intact bilaterally visual lemus are full there is no nystagmus there is no facial asymmetry tongue is midline with good range of motion palate rises symmetrically uvula is midline there are no facial sensory deficit he has good bilateral shoulder shrug. Pronator drift is negative Coordination shows no signs of dysmetria with good finger-nose rapid alternatingmovements Tone is physiologic Deep tendon reflexes are 2 out of 4 bilateral biceps brachioradialis and patellar and sensation is intact to pinprick vibratory temperature and light touch throughout except for a mild decrease in vibratory sensation distally in the lower extremity Motor examination is 5/5 x 4 good dorsi and plantarflexion Memory appears to be average Language skills are intact Fund of knowledge appears to be average Results Laboratory Findings 09/12/22 17:14 09/13/22 05:20 Diagnostic Findings Imaging/Impressions: ITS Impressions Head CT 09/12/22 17:28 IMPRESSION: No acute intracranial pathology. The ventricles are prominent, slightly out of proportion to the degree of atrophy. Normal pressure hydrocephalus is not excluded. The callosal angle measures 70 degrees. Impression dictated by: Magnus Cm M.D.09/12/2022 5:52 PM Dictation Location: [place] [address] Chest X-Ray 09/12/22 17:37 IMPRESSION: No acute cardiopulmonary pathology. Impression dictated by: Magnus Cm M.D.09/12/2022 5:55 PM Dictation Location: [place] [address] Therapy Recommendations Therapy Recommendations: PT Recommendations DC Physical Therapy Due To: No Skilled PT Needs,At Baseline PT Recommended Discharge Home Location Assessment/Plan (1) Transient confusion: Assessment/Problem Details: 77-year-old male who had a transient episode of confusion. He did not have lossof consciousness and he was aware that he was having difficulty navigating his way at work in his truck. Etiology of this is unclear. He did have some hypertensive urgency and this may have been more of a hypertensive encephalopathy. He has no focal lateralizing symptoms or findings. Of concern is that his CT did show some ventriculomegaly with concern for normal pressure hydrocephalus however the patient is not having any true dementia or odd behavior type of symptoms, has full control of bladder and does not have an ataxic/magnetic gait that are pathopneumonic for NPH. She has been functioning well at home and denies any memory loss or dementia type of symptoms. He has been working very hard with working 2 jobs 6 days a week and thinks he is not quite been himself with being more tired lately. It does sound like he get typically gets adequate hours of sleep however it does not seem restorative and he does snore. He has some daytime hypersomnolence. He may have an underlying obstructive sleep apnea or central sleep apnea would benefit from a polysomnogram as an outpatient to assess this further. 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 He is also drinking beer daily and would benefit from discontinuing chronic alcohol use. He also smokes about a pack and a half of cigarettes a day and would benefit from discontinuing smoking and if anything atleast decreasing the amount he is smoking. He does have some very mild decreasein sensation distally and may be developing some neuropathy which may be contributing to some of his off-balance sensation. Certainly I be concerned with theearliest signs of a dementia process since he had a sudden difficulty navigatinghowever this would be better worked up and evaluated as an outpatient not in theacute setting. His blood pressure is under better control and is down to 157/78but still elevated. At this time I am not convinced he currently has NPH but we need to monitor thisas an outpatient with serial examinations and repeat head CT's and this was explained to them. I would recommend monitoring his cognitive function and a complete dementia work-up as an outpatient. At this time he does appear to be back to his baseline. Plan This may have been a hypertensive encephalopathy any benefit from good control of his blood pressure At this time he is not showing true signs or symptoms of NPH and we will monitorthis with serial exams and CTs as an outpatient Dementia work-up as an outpatient Polysomnogram as an outpatient For any further events At this time the patient appears to be back at his baseline he has no focal or lateralizing findings and okay to DC home once cleared with the other services and he will follow-up in the neurology clinic This was all discussed with the patient and and daughter all questions wereanswered they agreed with the treatment plan Code(s): R41.0 - Disorientation, unspecified Status: Acute (2) Sleep disturbance: Code(s): G47.9 - Sleep disorder, unspecified Status: Acute (3) Hypersomnia: Code(s): G47.10 - Hypersomnia, unspecified Status: Acute (4) Hypertension, uncontrolled: Code(s): I10 - Essential (primary) hypertension Status: Acute (5) Abnormal CT scan, head: Code(s): R93.0 - Abnormal findings on diagnostic imaging of skull and head, not elsewhereclassified Status: Acute Documented By: Janeth Reyes DO 09/13/22 1059 Signed By: <Electronically signed by DO Janeth Reyes> 09/13/22 1232 [facility] Work Phone: 1(647) 652-902605-13-2023 History and physical note Author Justin Garcia [facility] September 12, 2022 7:11pm Note Date/Time September 12, 2022 7:05p m [facility] [address] [place] [address] Hospitalist H&P Signed Patient: Leigh Ann Kim MR#: [id number] : 1945 Acct:[id number] Age/Sex: 77 / M Adm Date: 3 Loc: Room: [address] [place] [address] Type: ADM INOo Attending Dr: Justin Garcia MD Copies to: DO Justin Coronel MD~ HPI DATE OF EXAMINATION: 09/12/22 CHIEF COMPLAINT: Altered mental status. HISTORY OF PRESENT ILLNESS: Patient is a pleasant 77-year-old male with no significant past medical history other than active tobacco smoking with more than [id number] smoking history. Patient brought to the emergency room by EMS for altered mental status. 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 He was find to be confused and EMS was called. Initially due to concern for stroke he was brought to the emergency room. In the ER patient noted to be alert and oriented x3 with NIH stroke scale of 0. Patient mentioned driving his truck when the road was block and he has to take another way and then he got lost with difficulty coming back. He denies fever, chills, headache, dizziness, visual disturbance, nausea, vomiting, chest pain, recent infection, head injury or any other complaint. He does not take any medications and denies prior history of heart disease, stroke, hypertension or diabetes. In the emergency room his labs showed creatinine of 1.75 with no prior labs to compare. Urine drug screen negative with CT head showing prominent ventricles and normal pressure hydrocephalus cannot be excluded. Patient smokes daily and drinks of beer almost every day after coming back from work. His present in the room and mentioned that something has been off since winter as she has noted him to be having confusion, sometimes unsteady gait and recently she has noted that he is sleeping excessively which is out of his normal. Patient does work late shifts and depending upon when he gets done could be early in the morning. Denies urinary incontinence or dysuria. Review of Systems Review of Systems All other systems reviewed & are negative unless noted below or in HPI PMFSH Vaccinated for COVID-19?: Yes Medical History (Updated 09/12/22 @ 19:03 by Rakesh Newby DO) No pertinent past medical history Surgical History No pertinent past surgical history Social History Smoking Status: Never smoker Substance Use Type: None Meds Medications and Allergies Allergies No Known Allergies Allergy (Verified 09/12/22 17:39) Home Medications No known home meds 09/12/22 [History Confirmed 09/12/22] Exam Physical Exam Vital Signs: Temp Pulse Resp BP Pulse Ox O2 Del Method 99.5 F H 79 18 162/88 H 97 Room Air 09/12/22 17:13 09/12/22 18:05 09/12/22 18:05 09/12/22 18:23 09/12/22 18:05 09/12/22 18:05 Const General: cooperative Orientation: alert, awake and oriented x3 HEENT Head: normal to inspection, no palpable skull fracture, normocephalic and atraumatic Eyes Pupils: PERRL EOM: EOM intact bilaterally and No nystagmus Neck Neck: normal visual inspection and full ROM Resp Effort & Inspection: normal respiratory effort and able to speak in complete sentences Auscultation: no rales, no rhonchi and no wheezes Cardio Rate: regular rate Rhythm: regular rhythm Heart Sounds: S1 normal and S2 normal GI Palpation: soft, not firm, no guarding and nontender Musc Cervical Spine: normal cervical lordosis and cervical ROM normal Neuro General: patient alert, patient awake, patient oriented x3, moves all extremities and no focal motor deficits Cranial Nerves: CN's II-XII intact bilaterally Cognition: normal cognition Speech: speech normal Motor: muscle tone normal throughout and strength 5/5 throughout Sensory Exam: no sensory deficits noted Extrem General: no clubbing, cyanosis or edema and no calf tenderness Psych Appearance: grossly normal Results Lab Results Labs: Laboratory Last Values Corrected WBC 8.0 X10E3/uL (4.1-10.5) 09/12/22 17:14 Uncorrected WBC Count 8.0 x10E3/uL (4.1-10.5) 09/12/22 17:14 RBC 4.42 X10E6/uL (3.90-5.60) 09/12/22 17:14 Hgb 13.7 g/dL (13.0-17.0) 09/12/22 17:14 Hct 40.9 % (38.8-50.0) 09/12/22 17:14 MCV 92.6 fl (83.5-101) 09/12/22 17:14 MCH 31.0 pg (27.5-35.2) 09/12/22 17:14 MCHC 33.5 g/dL (32.5-35.6) 09/12/22 17:14 RDW 13.3 % (12.0-14.8) 09/12/22 17:14 Plt Count 449 x10E3/uL (150-450) 09/12/22 17:14 MPV 6.8 fl (6.6-10.1) 09/12/22 17:14 Neut % (Auto) 66.7 % (.) 09/12/22 17:14 Lymph % (Auto) 17.9 % (.) 09/12/22 17:14 Ulster % (Auto) 11.0 % (.) 09/12/22 17:14 Eos % (Auto) 3.9 % (.) 09/12/22 17:14 Baso % (Auto) 0.5 % (.) 09/12/22 17:14 Nucleat RBC Rel Count 0.1 /100 WBC (0-0.5) 09/12/22 17:14 Neut # (Auto) 5.3 x10E3/uL (1.8-7.7) 09/12/22 17:14 Lymph # (Auto) 1.4 x10E3/uL (1.00-4.8) 09/12/22 17:14 Ulster # (Auto) 0.9 x10E3/uL (0.0-0.8) H 09/12/22 17:14 Eos # (Auto) 0.3 x10E3/uL (0.0-0.45) 09/12/22 17:14 Baso # (Auto) 0.0 x10E3/uL (0.0-0.2) 09/12/22 17:14 Monocyte Dist Width 17.85 % (0.00-20.00) 09/12/22 17:14 PHA Creatinine Clear 35.10 09/12/22 17:14 Sodium 136 mmol/L (136-145) 09/12/22 17:14 Potassium 4.3 mmol/L (3.5-5.1) 09/12/22 17:14 Chloride 103 mmol/L (98-107) 09/12/22 17:14 Carbon Dioxide 25.4 mmol/L (21.0-31.0) 09/12/22 17:14 Anion Gap 11.9 mEq/L (6.0-15.0) 09/12/22 17:14 BUN 21 mg/dL (7-25) 09/12/22 17:14 Creatinine 1.75 mg/dL (0.70-1.30) H 09/12/22 17:14 Est GFR (CKD-EPI) 39.605 mL/Min 09/12/22 17:14 Glucose 91 mg/dL (70-100) 09/12/22 17:14 Calcium 8.5 mg/dL (8.6-10.3) L 09/12/22 17:14 Total Bilirubin 0.6 mg/dl (0.3-1.0) 09/12/22 17:14 AST 16 U/L (13-39) 09/12/22 17:14 ALT 12 U/L (7-52) 09/12/22 17:14 Alkaline Phosphatase 93 U/L (34-104) 09/12/22 17:14 Troponin I High Sens 6.0 pg/mL (0.0-20.0) 09/12/22 17:14 Total Protein 6.7 gm/dL (6.4-8.9) 09/12/22 17:14 Albumin 3.6 gm/dL (3.5-5.7) 09/12/22 17:14 Globulin 3.1 gm/dL 09/12/22 17:14 Albumin/Globulin Ratio 1.2 09/12/22 17:14 Urine Color Yellow (Yellow) 09/12/22 18:01 Urine Appearance Clear (Clear) 09/12/22 18:01 Urine pH 6.0 (5.0-9.0) 09/12/22 18:01 Ur Specific Brooks 1.011 (1.001-1.030) 09/12/22 18:01 Urine Protein Negative mg/dL (Negative) 09/12/22 18:01 Urine Glucose (UA) Normal mg/dL (Normal) 09/12/22 18:01 Urine Ketones Negative (Negative) 09/12/22 18:01 Urine Occult Blood Trace (Negative) H 09/12/22 18:01 Urine Nitrite Negative (Negative) 09/12/22 18:01 Urine Bilirubin Negative (Negative) 09/12/22 18:01 Urine Urobilinogen Normal mg/dL (Normal) 09/12/22 18:01 Ur Leukocyte Esterase Negative (Negative) 09/12/22 18:01 Urine RBC 5-9 /HPF (0-4) H 09/12/22 18:01 Urine WBC None seen /HPF (0-4) 09/12/22 18:01 Ur Squamous Epith Cells None seen /HPF (0-2) 09/12/22 18:01 Urine Bacteria None seen (None Seen) 09/12/22 18:01 Hyaline Casts None seen /LPF (0-8) 09/12/22 18:01 Urine Opiates Screen Negative (Negative) 09/12/22 18:01 Ur Barbiturates Screen Negative (Negative) 09/12/22 18:01 Ur Phencyclidine Scrn Negative (Negative) 09/12/22 18:01 Ur Amphetamines Screen Negative (Negative) 09/12/22 18:01 U Benzodiazepines Scrn Negative (Negative) 09/12/22 18:01 Urine Cocaine Screen Negative (Negative) 09/12/22 18:01 U Marijuana (THC) Screen Negative (Negative) 09/12/22 18:01 Assessment & Plan Assessment/Plan (1) Hypertension, uncontrolled: (2) Abnormal CT scan, head: (3) Transient confusion: (4) KARI (acute kidney injury): Plan Patient with no significant past medical history other than active tobacco smoker brought to the emergency room for transient confusion. As per the he has been getting confused intermittently and sleeping excessively during daytime. No prior history of sleep apnea or snoring. Patient denies taking anyother medication including wdea-nnm-znnrulp herbal medication. Denies any drug use as well. In the ER CT head concerning for possible normal pressure hydrocephalus which could be a differential leading to his symptoms. Patient will be kept under observation for close monitoring and will consult neurology to further evaluate. We will check B12, TSH and start IV hydration. Follow-up renal function and morning labs. Blood pressure also noted to be on the higher side and add IV medication for accelerated hypertension. EKG negative for acuteischemic changes. Consult PT/OT. DVT prophylaxis. IP vs OBS Justification Based on differential dx, clinical care plan, and risk of adverse events, if untreated, in my clinical judgement this patient requires an acute care setting as: OBSERVATION because of an expectation of an under 2 midnight stay. Estimated length of stay (# of days): 1 Documented By: Justin Garcia MD 09/12/221857 Signed By: <Electronically signed by Justin Garcia MD> 09/12/22 191 [facility] Work Phone: [phone] 279-944005-13-2023 History and physical note Author Justin Garcia [facility] September 12, 2022 7:11pm Note Date/Time September 12, 2022 7:05p m [facility] [address] [place] [address] Hospitalist H&P Signed Patient: Leigh Ann Kim MR#: [id number] : 1945 Acct:[id number] Age/Sex: 77 / M Adm Date: 3 Loc: Room: [address] [place] [address] Type: ADM INOo Attending Dr: Justin Garcia MD Copies to: DO Justin Coronel MD~ HPI DATE OF EXAMINATION: 09/12/22 CHIEF COMPLAINT: Altered mental status. HISTORY OF PRESENT ILLNESS: Patient is a pleasant 77-year-old male with no significant past medical history other than active tobacco smoking with more than 18-[id number]-eqne smoking history. Patient brought to the emergency room by EMS for altered mental status. 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 He was find to be confused and EMS was called. Initially due to concern for stroke he was brought to the emergency room. In the ER patient noted to be alert and oriented x3 with NIH stroke scale of 0. Patient mentioned driving his truck when the road was block and he has to take another way and then he got lost with difficulty coming back. He denies fever, chills, headache, dizziness, visual disturbance, nausea, vomiting, chest pain, recent infection, head injury or any other complaint. He does not take any medications and denies prior history of heart disease, stroke, hypertension or diabetes. In the emergency room his labs showed creatinine of 1.75 with no prior labs to compare. Urine drug screen negative with CT head showing prominent ventricles and normal pressure hydrocephalus cannot be excluded. Patient smokes daily and drinks of beer almost every day after coming back from work. His present in the room and mentioned that something has been off since winter as she has noted him to be having confusion, sometimes unsteady gait and recently she has noted that he is sleeping excessively which is out of his normal. Patient does work late shifts and depending upon when he gets done could be early in the morning. Denies urinary incontinence or dysuria. Review of Systems Review of Systems All other systems reviewed & are negative unless noted below or in HPI [facility] Vaccinated for COVID-19?: Yes Medical History (Updated 09/12/22 @ 19:03 by Rakesh Newby DO) No pertinent past medical history Surgical History No pertinent past surgical history Social History Smoking Status: Never smoker Substance Use Type: None Meds Medications and Allergies Allergies No Known Allergies Allergy (Verified 09/12/22 17:39) Home Medications No known home meds 09/12/22 [History Confirmed 09/12/22] Exam Physical Exam Vital Signs: Temp Pulse Resp BP Pulse Ox O2 Del Method 99.5 F H 79 18 162/88 H 97 Room Air 09/12/22 17:13 09/12/22 18:05 09/12/22 18:05 09/12/22 18:23 09/12/22 18:05 09/12/22 18:05 Const General: cooperative Orientation: alert, awake and oriented x3 HEENT Head: normal to inspection, no palpable skull fracture, normocephalic and atraumatic Eyes Pupils: PERRL EOM: EOM intact bilaterally and No nystagmus Neck Neck: normal visual inspection and full ROM Resp Effort & Inspection: normal respiratory effort and able to speak in complete sentences Auscultation: no rales, no rhonchi and no wheezes Cardio Rate: regular rate Rhythm: regular rhythm Heart Sounds: S1 normal and S2 normal GI Palpation: soft, not firm, no guarding and nontender Musc Cervical Spine: normal cervical lordosis and cervical ROM normal Neuro General: patient alert, patient awake, patient oriented x3, moves all extremities and no focal motor deficits Cranial Nerves: CN's II-XII intact bilaterally Cognition: normal cognition Speech: speech normal Motor: muscle tone normal throughout and strength 5/5 throughout Sensory Exam: no sensory deficits noted Extrem General: no clubbing, cyanosis or edema and no calf tenderness Psych Appearance: grossly normal Results Lab Results Labs: Laboratory Last Values Corrected WBC 8.0 X10E3/uL (4.1-10.5) 09/12/22 17:14 Uncorrected WBC Count 8.0 x10E3/uL (4.1-10.5) 09/12/22 17:14 RBC 4.42 X10E6/uL (3.90-5.60) 09/12/22 17:14 Hgb 13.7 g/dL (13.0-17.0) 09/12/22 17:14 Hct 40.9 % (38.8-50.0) 09/12/22 17:14 MCV 92.6 fl (83.5-101) 09/12/22 17:14 MCH 31.0 pg (27.5-35.2) 09/12/22 17:14 MCHC 33.5 g/dL (32.5-35.6) 09/12/22 17:14 RDW 13.3 % (12.0-14.8) 09/12/22 17:14 Plt Count 449 x10E3/uL (150-450) 09/12/22 17:14 MPV 6.8 fl (6.6-10.1) 09/12/22 17:14 Neut % (Auto) 66.7 % (.) 09/12/22 17:14 Lymph % (Auto) 17.9 % (.) 09/12/22 17:14 Ulster % (Auto) 11.0 % (.) 09/12/22 17:14 Eos % (Auto) 3.9 % (.) 09/12/22 17:14 Baso % (Auto) 0.5 % (.) 09/12/22 17:14 Nucleat RBC Rel Count 0.1 /100 WBC (0-0.5) 09/12/22 17:14 Neut # (Auto) 5.3 x10E3/uL (1.8-7.7) 09/12/22 17:14 Lymph # (Auto) 1.4 x10E3/uL (1.00-4.8) 09/12/22 17:14 Ulster # (Auto) 0.9 x10E3/uL (0.0-0.8) H 09/12/22 17:14 Eos # (Auto) 0.3 x10E3/uL (0.0-0.45) 09/12/22 17:14 Baso # (Auto) 0.0 x10E3/uL (0.0-0.2) 09/12/22 17:14 Monocyte Dist Width 17.85 % (0.00-20.00) 09/12/22 17:14 PHA Creatinine Clear 35.10 09/12/22 17:14 Sodium 136 mmol/L (136-145) 09/12/22 17:14 Potassium 4.3 mmol/L (3.5-5.1) 09/12/22 17:14 Chloride 103 mmol/L (98-107) 09/12/22 17:14 Carbon Dioxide 25.4 mmol/L (21.0-31.0) 09/12/22 17:14 Anion Gap 11.9 mEq/L (6.0-15.0) 09/12/22 17:14 BUN 21 mg/dL (7-25) 09/12/22 17:14 Creatinine 1.75 mg/dL (0.70-1.30) H 09/12/22 17:14 Est GFR (CKD-EPI) 39.605 mL/Min 09/12/22 17:14 Glucose 91 mg/dL (70-100) 09/12/22 17:14 Calcium 8.5 mg/dL (8.6-10.3) L 09/12/22 17:14 Total Bilirubin 0.6 mg/dl (0.3-1.0) 09/12/22 17:14 AST 16 U/L (13-39) 09/12/22 17:14 ALT 12 U/L (7-52) 09/12/22 17:14 Alkaline Phosphatase 93 U/L (34-104) 09/12/22 17:14 Troponin I High Sens 6.0 pg/mL (0.0-20.0) 09/12/22 17:14 Total Protein 6.7 gm/dL (6.4-8.9) 09/12/22 17:14 Albumin 3.6 gm/dL (3.5-5.7) 09/12/22 17:14 Globulin 3.1 gm/dL 09/12/22 17:14 Albumin/Globulin Ratio 1.2 09/12/22 17:14 Urine Color Yellow (Yellow) 09/12/22 18:01 Urine Appearance Clear (Clear) 09/12/22 18:01 Urine pH 6.0 (5.0-9.0) 09/12/22 18:01 Ur Specific Brooks 1.011 (1.001-1.030) 09/12/22 18:01 Urine Protein Negative mg/dL (Negative) 09/12/22 18:01 Urine Glucose (UA) Normal mg/dL (Normal) 09/12/22 18:01 Urine Ketones Negative (Negative) 09/12/22 18:01 Urine Occult Blood Trace (Negative) H 09/12/22 18:01 Urine Nitrite Negative (Negative) 09/12/22 18:01 Urine Bilirubin Negative (Negative) 09/12/22 18:01 Urine Urobilinogen Normal mg/dL (Normal) 09/12/22 18:01 Ur Leukocyte Esterase Negative (Negative) 09/12/22 18:01 Urine RBC 5-9 /HPF (0-4) H 09/12/22 18:01 Urine WBC None seen /HPF (0-4) 09/12/22 18:01 Ur Squamous Epith Cells None seen /HPF (0-2) 09/12/22 18:01 Urine Bacteria None seen (None Seen) 09/12/22 18:01 Hyaline Casts None seen /LPF (0-8) 09/12/22 18:01 Urine Opiates Screen Negative (Negative) 09/12/22 18:01 Ur Barbiturates Screen Negative (Negative) 09/12/22 18:01 Ur Phencyclidine Scrn Negative (Negative) 09/12/22 18:01 Ur Amphetamines Screen Negative (Negative) 09/12/22 18:01 U Benzodiazepines Scrn Negative (Negative) 09/12/22 18:01 Urine Cocaine Screen Negative (Negative) 09/12/22 18:01 U Marijuana (THC) Screen Negative (Negative) 09/12/22 18:01 Assessment & Plan Assessment/Plan (1) Hypertension, uncontrolled: (2) Abnormal CT scan, head: (3) Transient confusion: (4) KARI (acute kidney injury): Plan Patient with no significant past medical history other than active tobacco smoker brought to the emergency room for transient confusion. As per the he has been getting confused intermittently and sleeping excessively during daytime. No prior history of sleep apnea or snoring. Patient denies taking anyother medication including lxiv-[id number]-[id number] herbal medication. Denies any drug use as well. In the ER CT head concerning for possible normal pressure hydrocephalus which could be a differential leading to his symptoms. Patient will be kept under observation for close monitoring and will consult neurology to further evaluate. We will check B12, TSH and start IV hydration. Follow-up renal function and morning labs. Blood pressure also noted to be on the higher side and add IV medication for accelerated hypertension. EKG negative for acuteischemic changes. Consult PT/OT. DVT prophylaxis. IP vs OBS Justification Based on differential dx, clinical care plan, and risk of adverse events, if untreated, in my clinical judgement this patient requires an acute care setting as: OBSERVATION because of an expectation of an under 2 midnight stay. Estimated length of stay (# of days): 1 Documented By: Justin Garcia MD 09/12/22 2869 Signed By: <Electronically signed by Justin Garcia MD> 09/12/22 1911 [facility] Work Phone: Evaluation note* Diagnosis Onset Date Resolution Status Abnormal CT scan, head acute KARI (acute kidney injury) ac [place] Hypertension, uncontrolled a cute Transient confusion acute [facility] Work Phone: Evaluation note* Diagnosis Onset Date Resolution Status Abnormal CT scan, head acute KARI (acute kidney injury) ac [place] Hypersomnia acute Hypertension, uncontrolled a cute Sleep disturbance acute Transient confusion acute [facility] Work Phone: Evaluation noteNo [employer] Other Evaluation noteNo assessment information available [facility] Work Phone: Evaluation note* Diagnosis Onset Date Resolution Status AAA (abdominal aortic aneurysm) acute Hypercholesterolemia acute Hypertension acute Screening PSA (prostate specific antigen) acute Encounter for subsequent mari ua wellness visit in Medicare patient noneactive [facility] Work Phone: Evaluation note* Diagnosis 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, vermilion border, unspecified as to upper or lower [facility] Diagnosis Basal cell carcinoma of skin of right upper limb, including shoulder- Primary Actinic keratosis [facility] Diagnosis Transient alteration of awareness- Primary Ventriculomegaly of brain, congenital (CMS/HCC) Hyper reflexia Abnormal reflex [facility]* Diagnosis Seborrheic keratosis- Primary Actinic keratosis Neoplasm of unspecified behavior of bone, soft tissue, and skin Lentigines [facility]* Diagnosis Cancer of the lip, oral cavity, and pharynx (CMS/HCC)- Primary Malignant neoplasm of ill-defined sites within the lip, oral cavity, and pharynx [facility] Diagnosis Malignant neoplasm of skin of lip- Primary Other malignant neoplasm of skin of lip [facility]* Diagnosis Other seborrheic dermatitis- Primary Actinic keratosis Seborrheic keratosis History of basal cell carcinoma Personal history of other malignant neoplasm of skin Lentigines History of SCC (squamous cell carcinoma) of skin Personal history of other malignant neoplasm of skin [facility] Diagnosis Transient alteration of awareness- Primary Ventriculomegaly of brain, congenital (CMS/HCC) [facility]* Diagnosis Seborrheic keratosis- Primary Lentigines Actinic keratosis Other seborrheic dermatitis [facility]* Diagnosis Onset Date Resolution Status Admit Date AAA (abdominal aortic aneurysm) acut e December 29, 2024 9:48am Chronic kidney disease acute Au christ[place] 2024 9:48am Hypercholesterolemia acute Augu st 2024 9:48am Hyperglycemia acute December 9:48am Hypertension acute December 29, 2024 9:48am Nicotine addiction acute December 29, 2024 9:48am ALEX (obstructive sleep apnea) acute December 29, 2024 9:48am Pulmonary nodule acute December 022024 9:48am Screening PSA (prostate spec ific antigen) acute December 29 9:48am 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 2023 acute December 29 9:48am Medicare annual wellness vis it, initial noneactive December 29 9:48am [facility] Work Phone: Hiswcjg general Narrative - Reported* Type Description Date Medical History Hypercholesterolemia Medical History Benign prostatic hyp erplasia with lower urinary tract symptoms Medical History Chronic kidney disease, stage 3a Medical History Cigarette nicotine dependence wi thout complication Medical History Lung nodule Medical History Current tobacco use Surgical History colonoscopy 01/2019 Hospitalization History see surgical history [email or web address] Other [facility] general Narrative - Reported* Type Description Date Medical History Hypercholesterolemia Medical History Benign prostatic hyp erplasia with lower urinary tract symptoms Medical History Chronic kidney disease, stage 3a Medical History Cigarette nicotine dependence wi thout complication Medical History Lung nodule Medical History Current tobacco use Medical History [ ] Surgical History colonoscopy 01/2019 Surgical History [ ] Hospitalization History see surgical history [email or web address] Other History general Narrative - Reported* Type Description Date Medical History Hypercholesterolemia Medical History Benign prostatic hyp erplasia with lower urinary tract symptoms Medical History Chronic kidney disease, stage 3a Medical History Cigarette nicotine dependence wi thout complication Medical History Lung nodule Medical History Current tobacco use Medical History [ ] Surgical History colonoscopy 01/2019 Surgical History Percutaneous endovascular aneur ysm repair 03/2023 Hospitalization History see surgical history [email or web address] Other Hospital Discharge instructions Additional Instructions Obtain BMP in 3 days-- send results to PCP.[facility] Work Phone: Hospital Discharge instructions Additional Instructions avoid heavy lifting for 1 [facility] Work Phone: Hospital Discharge instructions Additional Instructions 1. Softer diet, rinse mouth with water after eating 2. Avoid brushing your lower teeth for now. 3. Small amount of Vaseline to sutures twice daily 4. Take antibiotic as prescribed 5. Tylenol or Motrin for discomfort 6. See Dr. Singh in 1 [facility] Work Phone: Reason for referral (narrative)No reason for referral information [facility] Work Phone: Summary Purpose Family History Relationship Condition Age at Onset Recorded Date/T cynthia Not Specified Dementia Unknown Alzheimer's disease Unknown brother Dementia Unknown Relationship Condition Age at Onset Recorded Date/T cynthia mother Dementia Unknown Alzheimer's disease Unknown brother Dementia Unknown father Unknown mother Family history of mental disorder Unknown Unknown sister Malignant neoplasm Unknown Relationship Condition Age at Onset Recorded Date/T cynthia mother Dementia Unknown Unknown brother Dementia Unknown father Unknown Advance Directives Advance Directive Response Recorded Date/ Time Advance Directives No September 12 3 6:01pm Advance Directive Response Recorded Date/ Time Advance Directives No September 12 3 5:01pm Advance Directive Response Recorded Date/ Time Advance Directives No May 23, 2024 10:43am Advance Directive Response Recorded Date/ Time Advance Directives No May 23, 2024 11:43am Chief Complaint and Reason for Visit Chief Complaint hypertension Reason for Visit Abnormal CT scan, he ad KARI (acute kidney injury) Hypertension, uncontrolled Transient confusion Chief Complaint hypertension Reason for Visit Abnormal CT scan, he ad KARI (acute kidney injury) Hypersomnia Hypertension, uncontrolled Sleep disturbance Transient confusion Chief Complaint hypertension hypersominia Reason for Visit Abnormal CT scan, he ad KARI (acute kidney injury) Hypersomnia Hypertension, uncontrolled Sleep disturbance Transient confusion Chief Complaint hypertension g47.30 r41.82 q04.8 Unspecified sleep apnea Reason for Visit Abnormal CT scan, he ad KARI (acute kidney injury) Hypersomnia Hypertension, uncontrolled Sleep disturbance Transient confusion Chief Complaint r41.82 q04.8 Unspecified sleep apnea I71.4 Chief Complaint I71.4 AAA Chief Complaint I71.4 AAA AAA Chief Complaint I71.4 AAA AAA i71.4 s/p pevar Chief Complaint c44.00 Chief Complaint c44.00 Lower Lip Cancer Chief Complaint c44.00 Lower Lip Cancer Lower Lip Cancer Chief Complaint c44.00 Lower Lip Cancer Lower Lip Cancer Medicare Wellness Reason for Visit AAA (abdominal aorti c aneurysm) Hypercholesterolemia Hypertension Screening PSA (prostate specific antigen) Encounter for subsequent annual wellness visit in Medicare patient Chief Complaint Admit Date Q04.8 April 06, 2024 2 :54pm i71.4 May 11, 2024 10 :21am Chief Complaint Admit Date Q04.8 April 06, 2024 2 :54pm i71.4 May 11, 2024 10 :21am 1 YR F/U; [facility] May 23 10:26am Chief Complaint Admit Date Q04.8 April 06, 2024 2 :54pm i71.4 May 11, 2024 10 :21am 1 YR F/U; [facility] May 23 10:26am 6 month f/u June 30, 2024 9:22am Reason for Visit Admit Date AAA (abdominal aortic aneurysm) May 23, 2024 10:26am Smoker May 23, 2024 1 0:26am AAA (abdominal aortic aneurysm) June 30, 2024 9:22am Chronic kidney disease June 30 9:22am Hypercholesterolemia June 30, 2024 9:22am Hyperglycemia June 30, 2024 9:22am Hypertension June 30, 2024 9:22am Nicotine addiction June 30, 2024 9:22am ALEX (obstructive sleep apnea) June 042024 9:22am Pulmonary nodule June 30, 2024 9:22am 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 June 30, 2024 9:22am Chief Complaint Admit Date Wellness December 29, 2024 9: 48am Reason for Visit Admit Date AAA (abdominal aortic aneurysm) December 022024 9:48am Chronic kidney disease December 29, 2024 9:48am Hypercholesterolemia December 29, 2024 9 :48am Hyperglycemia December 29, 2024 9: 48am Hypertension December 29, 2024 9: 48am Nicotine addiction December 29, 2024 9: 48am ALEX (obstructive sleep apnea) December 9:48am Pulmonary nodule December 29, 2024 9: 48am Screening PSA (prostate specific antigen ) December 29, 2024 9:48am 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 Kim is being referred for a distal aortic aneurysm. Diagnosis 1 Infrarenal abdominal aortic aneurysm (AAA) without rupture (I71.43) Referral Organization [facility] Referring Provider First Name Aroldo Referring Provider Last Name Jhonny Referring Provider Specialty Internal Me dicine Referred Organization [facility] Referred Provider Johan Dawn Referred Address [address] [place] [phone] Referred Provider Specialty Vascular Yamila zachary Referral Priority Routine General Notes Mr. Kim has HTN, CKD and tobacco dependency. A distal aortic aneurysm was found incidentally while obtaining an ultrasound to rule out obstructive uropathy. He denies abdominal or back pain. He denies lower extremity claudication or nonhealing ulcers. I have initiated ASA and Statin therapy as well as counseled him on smoking cessation and BP control. Clinical Notes Include abdominal US report as well as his latest BMP, Lipids, CBC results Additional Source Comments (unrecognized sect ion and content) No Status Records FoundNo Status Records FoundNo Status Records FoundNo Status Records Found INFORMATION SOURCE (unrecogn ized section and content) DATE CREATED AUTHOR 06/25/2020 [facility] DATE CREATED AUTHOR AUTHOR'S ORGANIZ ATION 03/14/2023 [facility] DATE CREATED AUTHOR AUTHOR'S ORGANIZ ATION 05/16/2024 [facility] DATE CREATED AUTHOR AUTHOR'S ORGANIZ ATION 12/22/2024 [facility] EPIC Care Teams (unrecognized sec tion and content) Team Status: Active Member Role Status Dates Aroldo Ace DO Primary Care Provider Active Team Status: Inactive Member Role Status Dates Aroldo Ace DO Primary Care Provider Active Start: April 06, 2024 End: April 06, 2024 Radha Ponce PA-C Attending Provider Active Sta rt: April 06, 2024 End: April 06, 2024 Team Status: Inactive Member Role Status Claire Ace DO Primary Care Provider Active Start: May 11, 2024 End: May 11, 2024 Johan Dawn MD Attending Provider, Referring Provider Active Start: May 11, 2024 End: May 11, 2024 Team Status: Inactive Member Role Status Claire Ace DO Primary Care Provider Active Start: May 23, 2024 End: May 23, 2024 Johan Dawn MD Attending Provider Active S tart: May 23, 2024 End: May 23, 2024 Team Status: Inactive Member Role Status Claire Ace DO Primary Care Provide r, Attending Provider Active Start: June 30, 2024 End: June 30, 2024 Team Status: Active Member Role Status Claire Ace DO Primary Care Provide r, Attending Provider Active Start: March 16, 2024 Team Status: Inactive Member Role Status Claire Newby , Emergency Provider Active Hakan Emerson , DO RES Active Aroldo Ace , DO Primary Care Provider Active Justin Garcia MD Admit Provider Active Janeth Reyes , DO Other Provider Active Linh Hoyt MD Attending Provider Active Team Status: Active Member Role Status Claire Newby DO Emergency Provider Active Hakan Emerson , DO RES Active Aroldo Ace , DO Primary Care Provider Active Justin Garcia MD Admit Provider, Attending Provider Active Team Status: Inactive Member Role Status Claire Ace DO Primary Care Provider Active Coby Cordon MD Attending Provider Active Team Status: Inactive Member Role Status Claire Ace DO Primary Care Provider Active Radha Ponce PA-C Attending Provider Active Team Status: Active Member Role Status Claire Ace DO Primary Care Provider Active Coby Cordon MD Attending Provider Active Team Status: Inactive Member Role Status Claire Ace DO Primary Care Provider Active Johan Dawn MD Attending Provider Active Team Status: Inactive Member Role Status Claire Ace DO Primary Care Provider Active Johan Dawn MD Admit Provider, Attending Provide r Active Team Status: Inactive Member Role Status Claire Ace DO Primary Care Provider Active Kimmy Hines NP-Anahi Attending Provider Active Team Status: Inactive Member Role Status Dates Aroldo Ace DO Primary Care Provider Active Start: December 02, 2023 End: December 02, 2023 Aroldo Singh DO Attending Provider Active S tart: December 02, 2023 End: December 02, 2023 Team Status: Inactive Member Role Status Dates Aroldo Ace DO Primary Care Provider Active Start: December 06, 2023 End: December 06, 2023 Aroldo Singh DO Attending Provider Active S tart: December 06, 2023 End: December 06, 2023 Team Status: Inactive Member Role Status Dates Aroldo Ace DO Primary Care Provider Active Start: December 09, 2023 End: December 09, 2023 Aroldo Singh DO Attending Provider Active S tart: December 09, 2023 End: December 09, 2023 Team Status: Inactive Member Role Status Dates Aroldo Ace DO Primary Care Provide r, Attending Provider Active Start: December 27, 2023 End: December 27, 2023 Billet Assembler Relationship Specialty Start Date End Date Aroldo Ace MD [address] [id number] PCP - General Internal Medicine 09/14/23 Billet Assembler Relationship Specialty Start Date End Date Aroldo Ace MD [address] [id number] PCP - General Internal Medicine 09/14/23 Billet Assembler Relationship Specialty Start Date End Date Aroldo Ace MD [address] [place] [phone] PCP - General Internal Medicine 09/14/23 Billet Assembler Relationship Specialty Start Date End Date Aroldo Ace MD [address] [phone] PCP - General Internal Medicine 09/14/23 Billet Assembler Relationship Specialty Start Date End Date Aroldo Ace MD [address] [place] [facility] [address] PCP - General Internal Medicine 09/14/23 Billet Assembler Relationship Specialty Start Date End Date Aroldo Ace MD [address] [facility] [phone] PCP - General Internal Medicine 09/14/23 Billet Assembler Relationship Specialty Start Date End Date Aroldo Ace MD [address] [facility] [phone] PCP - General Internal Medicine 09/14/23 Billet Assembler Relationship Specialty Start Date End Date Aroldo Ace MD [address] [facility] [phone] PCP - General Internal Medicine 09/14/23 Billet Assembler Relationship Specialty Start Date End Date Aroldo Ace MD [address] [facility] [phone] PCP - General Internal Medicine 09/14/23 Billet Assembler Relationship Specialty Start Date End Date Aroldo Ace MD [address] [facility] [address] PCP - General Internal Medicine 09/14/23 Billet Assembler Relationship Specialty Start Date End Date Aroldo Ace DO PCP - General Internal Medicine 09/14/23 Billet Assembler Relationship Specialty Start Date End Date Aroldo Ace DO PCP - General Internal Medicine 09/14/23 Team Status: Inactive Member Role Status Dates Aroldo Ace DO Primary Care Provider Active Start: December 29, 2024 End: December 29, 2024 Aroldo Ace DO Attending Provider Active Sta rt: December 29, 2024 End: December 29, 2024 Goals (unrecognized section and content) Goals may be documented in a n alternate sectionNo InformationNo InformationNo InformationNo InformationNo InformationNo InformationNo InformationNo InformationNo InformationNo InformationGoals may be documented in an alternate sectionNo InformationGoals may be documented in an alternate sectionNo InformationNo InformationNo InformationNo InformationNo InformationNo InformationNo InformationGoals may be documented in an alternate sectionGoals may be documented in an alternate sectionGoals may be documented in an alternate sectionGoals may be documented in an alternate sectionGoals may be documented in an alternate sectionGoals may be documented in an alternate section REASON FOR VISIT (unrecogniz ed section and content) Reason Comments Post-op 6 week navid lower li p CA Reason Comments Excision Reason Comments Altered Mental Status Reason Comments Skin Check Reason Comments Post-op 3 week navid lower li p cancer Reason Comments Cancer 3 month lip FOR RECORDS PERTAINING TO PATIENTS WHO ARE OR HAVE BEEN ENROLLED IN A CHEMICAL DEPENDENCY/SUBSTANCEABUSE PROGRAM, SOME INFORMATION MAY BE OMITTED. This clinical summary was aggregated from multiple sources. Caution should be exercised in using it in the provision of clinical care. This summary normalizes information from multiple sources, and as a consequence, information in this document may materially change the coding, format and clinical context of patient data. In addition, data may be omitted in some cases. CLINICAL DECISIONS SHOULD BE BASED ON THE PRIMARY CLINICAL RECORDS. [employer] [facility]. provides no warranty or guarantee of the accuracy or completeness of information in this document.
--- OUTSIDE RECORDS SUMMARY | 2025-02-15 09:45 | XMS_ITS ---
Author Organization [facility] Address [address] [place] [address] Care Team Providers Care Subway Train Driver Name Role Phone Aroldo Ace DO Primary Care Provider [phone] Active Problems Problem Noted Date Diagnosed Date AAA (abdominal aortic aneurysm) 01/05/2024 Nicotine addiction 01/05/2024 Altered mental status 09/12/2023 Overview (09/12/2023): Patient was [place] [facility] [place] for altered mental status where he [...] recommended outpatient and complete dementia work up. MOCA today 06/23/2023 is 22/30 (MOCA 10/06/2022: 26/30). Vitamin B12 280, Folate 10.3, TSH 1.43. PCP is supplementing B12. He did have hypertensive urgency and symptoms were attributed to hypertensive encephalopathy. Routine EEG 10/08/2022 was normal. Neuropsychology 11/24/2022 revealed well preserved cognition and memory with no evidence of impairment, and no activity restrictions from a cognitive standpoint. Brain MRI 12/03/2022 revealed no evidence of CVA or TIA, no acute intracranial pathology. Sleep study revealed ALEX but he is not compliant with CPAP, as he did not tolerate. I discussed alternative masks that can be used, but he wishes not to resume CPAP. I discussed risks of untreated ALEX. Hypertensive encephalopathy 09/12/2023 Hypertensive urgency 09/12/2023 Ventriculomegaly of brain, congenital 09/12/2023 Current Treatment and Therapy Plans No current plan information found. Past Treatment and Therapy Plans No past plan information found. Lifetime Dose Tracking * Chemical Lifetime Dose Automatic Entry Manual Entr y Radiation 9.6 mSv 9.6 mSv 0 mSv Resolved Problems Problem Noted Date Diagnosed Date Resolved Date Hypercholesterolemia 01/05/2024 024 Screening PSA (prostate specific antigen) 01/05/2024 01/05/[address] scan, head 12/02/202312/01 KARI (acute kidney injury) 12/02/2023 Angioma of skin 12/02/2023 12/02/2023 Basal cell carcinoma (BCC) of lower lip 12/02/2023 12/02/2023 Current smoker 12/02/2023 12/02/2023 Overview (12/02/2023): Added secondary to documentation in Social History. Hypersomnia 12/02/2023 12/02/2023 Hypertension, uncontrolled 12/02/2023 0 12/02/2023 Sleep disturbance 12/02/2023 12/02/2023 Squamous cell cancer of skin of left yazidi 12/02/2023 12/02/2023 Squamous cell carcinoma of skin of neck 12/02/2023 12/02/2023 Squamous cell carcinoma of s kin of left upper limb, including shoulder 12/02/2023 12/02/2023
--- OUTSIDE RECORDS SUMMARY | 2025-02-15 09:45 | XMS_ITS | Clinical Summary ---
Author Organization [facility] Address [address] [place] [address] Care Team Providers Care Ambulatory Care Coordinator Name Role Phone Aroldo Ace DO Primary Care Provider [phone] Allergies No known active allergies Medications amLODIPine (Norvasc) 5 MG tablet Take 5 mg by mouth in the morning. 3 Active nystatin (Mycostatin) ointmentIndicati ons:Rash and other nonspecific skin eruption Apply to affected areas, once daily when flared, 30 day supply 15 g 11 4 Active Additional Information Patient not taking.Reported on 06/22/2024 atorvastatin (Lipitor) 10 MG tablet Take 10 mg by mouth Daily Active Folic Acid 5 MG capsule Take by mouth Active aspirin (ASPIR) 81 MG EC tablet Take 81 mg by mouth Daily Active ciclopirox (Loprox) 0.77 % creamIndications :Other seborrheic dermatitis Apply thin layer to face once a day, 30 day supply 30 g 11 5 Active fluorouracil (Efudex) 5 % creamIndications :Actinic keratosis Apply to directed areas on the neck, upper lip, behind ears, cheeks and forearms twice a day x 14 days. Dispense 30 day supply but only use for 14 days. 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, including shoulder 12/02/2023 12/02/2023 Encounters Date Type Department Care Team Description 12/20/2024 11:15 AM EDT Office Visit [facility] [address] [place] [address] Elena Viveros MD Seborrheic keratosis (Primary Dx); Lentigines; Actinic keratosis; Other seborrheic dermatitis 12/20/2024 Bamboo flowsheet [facility] [address] [place] [address] Elena Viveros MD 12/20/2024 Travel from Last 3 Months Immunizations Immunization Administration Dates Next Due Influenza, High Dose Seasonal, Preservative Free 03/16/2024 Influenza, High-dose Seasona l, Quadrivalent, Preservative Free 05/22/2022 Influenza, Seasonal, Quadrivalent, Adjuvanted Influenza, Unspecified 05/22/2022,03/15/2019 Influenza, injectable, quadrivalent 05/16/2018 Pneumococcal Conjugate PCV 13 10/26/2017 Pneumococcal Polysaccharide PPSV23 03/15/2019 TD (adult), 2 Lf tetanus tox oid, preservative free, adsorbed 10/31/2022 Family History Medical History Relation Name Comments Alzheimer's disease Mother Melanoma Neg Hx Relation Name Status Comments Mother Paternal Grandfather Alive Social History Tobacco Use Types Packs/Day Years Used Date Smoking Tobacco: Every Day Cigarettes Tobacco Cessation:Ready to Q uit: Not Asked; Counseling Given: Not Answered Comments:1ppd Alcohol Use Standard Drinks/Week Comments Yes 4 (1 standard drink = 0.6 oz pur e alcohol) AUDIT-C Answer Date Recorded Q1: How often do you have a drink containing alcohol? 4 or more times a week 09/12/2023 Q2: How many drinks containi ng alcohol do you have on a typical day when you are drinking? 1 or 2 Q3: How often do you have si x or more drinks on one occasion? Never 09/12/2023 Sex and Gender Information Value Date Recorded Sex Assigned at Not on file Legal Sex Male 7:25 PM EDT Gender Identity Not on file Sexual Orientation Not on file Last Filed Vital Signs Vital Sign Reading Time Taken Comments Blood Pressure 142/82 06/22/2024 2:26 PM EST Pulse 72 03/27/2024 8:24 AM EST Temperature - - Respiratory Rate 16 03/27/2024 8:24 AM EST Oxygen Saturation 94% 03/27/2024 8:24 AM EST Inhaled Oxygen Concentration - - Weight 78.9 kg (174 lb) 06/22/2024 2:26 PM EST Height 175.3 cm (5' 9 ) 06/22/2024 2:26 PM EST Body Mass Index 25.7 06/22/2024 2:26 PM EST Plan of Treatment Upcoming Encounters Date Type Department Care Team (Late st Contact Info) Description 06/27/2025 10:05 AM EST Office [facility] [address] [facility] [address] [place] [phone] Elena Viveros MD [address] [facility] [address] [place] [address] Health Maintenance Due Date Last Done Comments Influenza Vaccine (#1) 2025 4, 03/01/2023, 05/22/2022, Additional history exists Pneumococcal Vaccine: 65+ Years Completed 9, 10/26/2017 Insurance MEDICARE [facility] Care Teams Ambulatory Care Coordinator Relationship Specialty Start Date End Date Aroldo Ace DO PCP - General Internal Medicine 09/14/23
--- OUTSIDE RECORDS SUMMARY | 2025-02-15 09:46 | XMS_ITS | Encounter Summary ---
Author Organization [facility] Address [address] [place] [address] Care Team Providers Care Php Lamp Developer Name Role Phone Aroldo Ace DO Primary Care Provider [phone] Encounter Details Date Type Department Care Team (Late st Contact Info) Description 12/06/2023 External Result Encounter [facility] External Department Unsolicited Aroldo Singh DO [address] [place] [address] Social History Tobacco Use Types Packs/Day Years Used Date Smoking Tobacco: Every Day Cigarettes Comments:1ppd Alcohol Use Standard Drinks/Week Comments Yes [...] on file Sexual Orientation Not on file documented as of this encounter Plan of Treatment Upcoming Encounters Date Type Department Care Team (Late st Contact Info) Description 06/27/2025 10:05 AM EST Office Visit [facility] [address] [facility] [address] [place] [phone] Elena Viveros MD [address] [facility] [address] [place] [address] documented as of this encounter Procedures Procedure Name Priority Date/Time Associated Diagnosis Comments ECG 12-LEAD 12/06/2023 4:51 PM EDT documented in this encounter Results * ECG 12 lead (12/06/2023 4:51 PM EDT) 12/06/2023 4:51 PM EDT Narrative [facility] 12/21/2023 11:55 AM EDT [facility] [place] [address] Electrocardiograph Report Signed Patient: Karel Kim MR#: [id number] : 1945 Acct:[id number] Age/Sex: 78 / M ADM Date: 12/06/23 Loc: PS Room: Type: [facility] CLI Attending Dr: Aroldo Singh DO Ordering Provider: [...] MUS Signed By Philly Stephens DO 1912 Procedure Note Radiology, Radiologist, MD - 12/21/2023 [place] [id number] Electrocardiograph Report Signed Patient: Karel Kim EMR#: [id number] : 5Acct:[id number] Age/Sex: 78 / MADM Date: 12/06/23 Loc: PS Room:Type: [facility] CLI Attending Dr: Aroldo Singh DO Ordering Provider: [...] By: MUS Signed By Philly Stephens DO 4 191 us Aroldo Singh DO ECG ORDERABLES Final Resul t [facility] [address] [place] [address], documented in this encounter Visit Diagnoses Not on filedocumented in this encounter Care Teams Php Lamp Developer Relationship Specialty Start Date End Date Aroldo Ace DO PCP - General Internal Medicine 09/14/23 documented as of this encounter
--- OUTSIDE RECORDS SUMMARY | 2025-02-15 09:46 | XMS_ITS | Encounter Summary ---
Author Organization [facility] Address [address] [facility] [address] Care Team Providers Care Licensed Chemical Spray Technician Name Role Phone Aroldo Ace DO Primary Care Provider [phone] Encounter Details Date Type Department Care Team (Late st Contact Info) Description 12/28/2022 Abstract [facility] [address] [facility] [address] [place] [address] Elena Viveros MD [address] [facility] [address] [facility] [address] [place] [address] Social History Tobacco Use Types Packs/Day Years Used Date Smoking Tobacco: Unknown Tobacco Cessation:Counseling Given: Not Answered Sex and Gender Information Value Date Recorded Sex Assigned at Not on file Legal Sex Male 7:25 PM EDT Gender Identity Not on file Sexual Orientation Not on file documented as of this encounter Plan of Treatment Upcoming Encounters Date Type Department Care Team (Late st Contact Info) Description 06/27/2025 10:05 AM EST Office Visit [facility] [address] [place] [address] Elena Viveros MD [address] [facility] [address] [place] [address] documented as of this encounter Visit Diagnoses Not on filedocumented in this encounter Care Teams Licensed Chemical Spray Technician Relationship Specialty Start Date End Date Aroldo Ace DO PCP - General Internal Medicine 09/14/23 documented as of this encounter
--- NOTE | 2025-02-15 10:07 | CT_ITS ---
The [address] [address] Patient Name: LEIGH ANN POLO MRN: [id number] date: 1945 Sex: M Assigned Patient Location: LAB Current Patient Location: LAB Accession/Order Number: [id number] Exam Date: 02/15/2025 10:30 Report Date: 02/15/2025 11:05 At the request of: FRANKLYN BARRY DO Procedure: CT chest wo con CT CHEST WITHOUT CONTRAST COMPARISON: 02/07/2024 CLINICAL DATA: History of tobacco use. Follow-up pulmonary nodularity. Spiral axial unenhanced images were obtained through the chest. Images were reviewed using both narrow and wide window settings. This CT exam was performed using one or more following dose reduction techniques: Automated exposure control, adjustment of the mA and/or kV according to patient size, or use of iterative reconstruction technique. The heart is normal size. No pericardial effusion is present. There is minor coronary artery disease. No aortic aneurysm is noted. There is atherosclerotic plaque at the aortic arch, descending aorta and proximal great vessels. Similar small mediastinal lymph nodes are visualized. Mild gynecomastia is seen. There is slight levoscoliotic curvature and mild endplate spurring at the spine. There is obstructive lung disease with airspace lucencies and subpleural blebs. Mild atelectasis and/or scarring is present. No developing consolidation, pleural effusion or pneumothorax is seen. There is stable pulmonary nodularity including a couple calcified right-sided granulomas. Limited imaging through the upper abdomen shows a partially imaged endoluminal aortic stent. There is a left hepatic hypodensity which may be a cyst. CT/CT chest wo con IMPRESSION: OBSTRUCTIVE LUNG DISEASE WITH MINOR ATELECTASIS OR SCARRING. STABLE PULMONARY NODULARITY INCLUDING CALCIFIED GRANULOMAS. NO ACUTE FINDINGS. Impression dictated by: Guerita Cleveland M.D. 02/15/2025 11:05 AM Dictation Location: [place] [address] Electronically authenticated by: [id number] Y Date: 02/15/2025 11:05
[2025-02-15 10:09] LABS: Hematocrit 40.0 % (42.0-54.0); Hemoglobin 13.3 g/dL (14.0-18.0); Immature Granulocytes Abs Auto 0.05 10^3/uL (0.00-0.03); Immature Granulocytes Pct Auto 0.6 % (0.0-0.5); Lymphocytes Absolute Auto 1.6 10^3/uL (1.2-3.8); Mean Corpuscular HGB Conc 33.3 g/dL (29.9-35.2); Mean Corpuscular Hemoglobin 31.6 pg (25.9-34.0); Mean Corpuscular Volume 95.0 fL (80.0-94.0); Platelet Count 337 10^3/uL (150-450); Red Blood Count 4.21 10^6/uL (4.70-6.10); White Blood Count 7.8 10^3/uL (4.0-11.0)
[2025-02-15 10:30] LABS: Alanine Aminotransferase 22 U/L (16-63); Albumin Globulin Ratio 0.8; Albumin Level 3.3 g/dL (3.4-5.0); Alkaline Phosphatase 108 U/L (46-116); Anion Gap 15.9; Aspartate Amino Transferase 23 U/L (15-37); Blood Urea Nitrogen 21.0 mg/dL (7.0-18.0); Calcium 8.8 mg/dL (8.5-10.1); Carbon Dioxide 25.2 mmol/L (21.0-32.0); Chloride 104 mmol/L (98-107); Estimated GFR (African America 43 (>=60 mL/min/1.73m^2); Estimated GFR (Non-African Ame 35 (>=60 mL/min/1.73m^2); Globulin 4.2 g/dL; Glucose 93 mg/dL (74-106); Potassium 4.1 mmol/L (3.5-5.1); Sodium 141 mmol/L (136-145); Total Protein 7.5 g/dL (6.4-8.2)
[2025-02-15 15:23] LABS: Microalbum Creatinine Ratio Ur 65.0 mg/g (0.0-29.9)
[2025-02-16 07:12] LABS: Vitamin B12 435 pg/mL (232-1245)
== END 2025-02-15 09:40 | disposition home or self-care (01) ==
LOC: LAB 09:41
PROVIDERS: PCP Internal Medicine; Visit Provider Internal Medicine
DX: R73.9 Hyperglycemia, unspecified (principal); I10 Essential (primary) hypertension; N18.32 Chronic kidney disease, stage 3b; D51.0 Vitamin B12 deficiency anemia due to intrinsic factor deficiency; Z12.5 Encounter for screening for malignant neoplasm of prostate; F17.200 Nicotine dependence, unspecified, uncomplicated; J44.9 Chronic obstructive pulmonary disease, unspecified
CPT/HCPCS: 36415; 71250; 80053; 82043; 82570; 82607; 83036; 85025; G0103